=== PATIENT | male | born 1930 | race Caucasian/White ===

== ENCOUNTER 2017-03-23 20:58 | Emergency (ER) | payer MEDICARE ==
[2017-03-23 21:35] LABS: #Eosinphils 0.2 thou/uL (0.0-0.7); #Lymphocytes 1.5 thou/uL (1.20-3.40); #Monocytes 0.5 thou/uL (0.11-0.59); #Neutrophils 4.5 thou/uL (1.40-6.50); %Basophils 0.5 % (0.0-1.0); %Eosinophils 2.9 % (0.0-10.0); %Lymphocytes 22.5 % (21.0-51.0); %Monocytes 7.9 % (0.0-10.0); Hematocrit 41.2 % (42.0-52.0); Mean Platelet Volume 6.4 fL (7.4-10.4); Red Blood Cell (RBC) Count 4.11 mill/uL (4.70-6.10); White Blood Cell (WBC) Count 6.8 thou/uL (4.8-10.8)
--- NOTE | 2017-03-23 21:39 | RAD ---
CHEST ONE VIEW 03/23/17 HISTORY: Emergency exam. Palpitations. COMPARISON: Chest one view 2012. FINDINGS: The lungs are clear. The heart size is enlarged. No pneumothorax. Chronic pleural and parenchymal rashad nges in both lung bases. IMPRESSION: 1. No acute intrathoracic abnormality. 2. Cardiomegaly. 3. Chronic changes. POS: [facility]
[2017-03-23 21:57] LABS: ALT (SGPT) 10 U/L (8-55); AST (SGOT) 11 U/L (5-34); Alkaline Phosphatase 98 U/L (40-150); Anion Gap 11 mmol/L (10-20); BUN (Urea Nitrogen) 13 mg/dL (8.4-25.7); Bilirubin, Total 0.4 mg/dL (0.2-1.2); CK (CPK) 59 U/L (30-200); Calc. Creatinine Clearance 0 mL/min (70-130); Calcium 9.2 mg/dL (7.8-10.44); Carbon Dioxide 27 mmol/L (23-31); Chloride 107 mmol/L (98-107); Estimated GFR-MDRD 63; Globulin 2.5 g/dL (2.4-3.5); Protein, Total 6.3 g/dL (5.8-8.1)
[2017-03-23 22:01] LABS: Troponin I Less than 0.010 ng/mL (< 0.028)
== END 2017-03-23 23:06 | disposition home or self-care (01) ==
LOC: ERS 20:58
DX: R00.0 Tachycardia, unspecified (principal); N40.0 Benign prostatic hyperplasia without lower urinary tract symptoms; I25.10 Atherosclerotic heart disease of native coronary artery without angina pectoris; I25.2 Old myocardial infarction; K21.9 Gastro-esophageal reflux disease without esophagitis; Z79.82 Long term (current) use of aspirin; Z79.84 Long term (current) use of oral hypoglycemic drugs; Z79.899 Other long term (current) drug therapy
CPT/HCPCS: 36415; 71010; 80053; 82550; 82553; 84484; 85025; 93005

== ENCOUNTER 2017-07-06 09:15 | Inpatient (IN) | payer MEDICARE ==
[2017-07-06 09:36] LABS: #Eosinphils 0.2 thou/uL (0.0-0.7); #Monocytes 0.7 thou/uL (0.11-0.59); #Neutrophils 4.7 thou/uL (1.40-6.50); %Basophils 0.4 % (0.0-1.0); %Lymphocytes 25.8 % (21.0-51.0); %Monocytes 8.9 % (0.0-10.0); %Neutrophils 62.8 % (42.0-75.0); Hemoglobin 14.2 g/dL (14.0-18.0); Mean Corpuscular HGB CONC 34.7 g/dL (32.0-36.0); Mean Corpuscular Hemoglobin 33.9 pg (27.0-31.0); Mean Corpuscular Volume 97.9 fl (80.0-94.0); Mean Platelet Volume 6.3 fL (7.4-10.4); Platelet Count 197 thou/uL (130-400); RBC Distribution Width 11.7 % (11.5-14.5); Red Blood Cell (RBC) Count 4.17 mill/uL (4.70-6.10); White Blood Cell (WBC) Count 7.5 thou/uL (4.8-10.8)
[2017-07-06] MEDS ORDERED: Morphine 2 MG/ML SYRINGE ONE (09:57)
[2017-07-06 09:59] LABS: ALT (SGPT) 17 U/L (8-55); AST (SGOT) 24 U/L (5-34); Albumin 3.8 g/dL (3.4-4.8); Alkaline Phosphatase 85 U/L (40-150); Anion Gap 13 mmol/L (10-20); BUN (Urea Nitrogen) 15 mg/dL (8.4-25.7); Bilirubin, Total 0.6 mg/dL (0.2-1.2); CK (CPK) 64 U/L (30-200); Calc. Creatinine Clearance 0 mL/min (70-130); Calcium 8.7 mg/dL (7.8-10.44); Carbon Dioxide 25 mmol/L (23-31); Chloride 108 mmol/L (98-107); Estimated GFR-MDRD 60; Globulin 1.9 g/dL (2.4-3.5); Glucose 146 mg/dL (83-110); Potassium 3.7 mmol/L (3.5-5.1); Protein, Total 5.7 g/dL (5.8-8.1); Sodium 142 mmol/L (136-145)
[2017-07-06 10:01] LABS: CKMB 1.2 ng/mL (0-6.6); Troponin I Less than 0.010 ng/mL (< 0.028)
[2017-07-06 10:11] LABS: Lipase 1570 U/L (8-78)
--- NOTE | 2017-07-06 10:38 | RAD ---
PORTABLE CHEST 1 VIEW: DATE: 07/06/17. TIME: 10:09 a.m. HISTORY: Chest pain. FINDINGS: Comparison is made with the exam of 03/23/17. The heart size is borderline. The lungs are expanded without focal areas of consolidation, pneumotho rax, or pleural effusions. Chronic change is again seen. There is continued elevation of the right hemidiaphragm. IMPRESSION: No acute process. POS: [facility]
[2017-07-06] MEDS ORDERED: Ondansetron HCl/PF 4 MG/2 ML Vial ONE (11:50)
[2017-07-06] MEDS ORDERED: Morphine 4 MG/ML VIAL ONE (11:50)
--- NOTE | 2017-07-06 12:37 | ULT ---
RIGHT UPPER QUADRANT ULTRASOUND: History: Abdominal pain, nausea. FINDINGS: Echogenic material layers within the dependent portion of the gallbladder lumen. Gallbladder is diste nded to 8.8 cm. No gallbladder wall thickening or pericholecystic fluid. Common duct is 0.6 cm. Liver is diffusely echogenic and enlarged without focal abnormality of free abdominal fluid. IMPRESSION: 1. Biliary sludge within the gallbladder is consistent with chronic gallbladder dyskinesis. 2. Gallbladder distention is nonspecific in the absence of point tenderness over the gallbladder theresa a. 3. Hepatosteatosis. POS: [facility]
[2017-07-06 12:52] LABS: Troponin I Less than 0.010 ng/mL (< 0.028)
[2017-07-06] MEDS ORDERED: Morphine 5 MG/ML SYRINGE SLOW IVP PRN (13:30)
[2017-07-06] MEDS ORDERED: Ondansetron ODT 4 MG TAB PO PRN (13:32)
[2017-07-06] MEDS ORDERED: Ondansetron HCl/PF 4 MG/2 ML Vial IVP PRN (13:32)
[2017-07-06] MEDS: Sodium Chloride 0.9% 1,000 ML IV SCH ×2 (14:27→23:26)
[2017-07-06] MEDS ORDERED: FLU VACC TS2017-18 (>65YR) 0.5 ML SYRINGE IM ONE (15:15)
[2017-07-06] MEDS: Ketorolac Tromethamine 30 MG/ML VIAL IVP PRN ×2 (15:39→20:52)
[2017-07-06 16:19] VITALS: BMI 36.1
[2017-07-06] MEDS ORDERED: ISOVUE-370 76%-LOCM 1 ML ONE (16:21)
[2017-07-06 16:27] LABS: Troponin I Less than 0.010 ng/mL (< 0.028)
[2017-07-06] MEDS ORDERED: Dextrose 5% in Water 1,000 ML IV PRN (18:18)
[2017-07-06] MEDS ORDERED: Dextrose 50% Abboject 50 ML SYRINGE IVP PRN (18:18)
[2017-07-06] MEDS ORDERED: Insulin Regular 300 UNITS/3 ML VIAL SC PRN (18:18)
--- NOTE | 2017-07-06 18:32 | CT ---
CT ABDOMEN AND PELVIS: 07/06/17 Multiple axial tomograms obtained through the abdomen and pelvis with IV enhancement. HISTORY: Pancreatitis. Abdominal pain. Lung bases are clear. Liver and spleen are unremarkable. Pancreas shows some mild peripancreatic inflammatory change. There is mild stranding seen along the anterior border of the pancreas. No peripancreatic fluid collection . No pseudocyst. Adrenal glands and kidneys are unremarkable. No hydronephrosis. There is evidence of a low density lesion probably a small cyst measuring approximately 1.5 cm in med ial left kidney. Small bowel loops show nonspecific distention, possibly ileus. Appendix appears unremarkable. Aorta i s normal caliber. No adenopathy. No fluid collection. The gallbladder is mildly distended and there is suggestion of mild pericholecystic edema. Gallbladde r ultrasound has already been performed and this did show biliary sludge and gallbladder distention. IMPRESSION: 1. Mildly distended gallbladder with suggestion of mild pericholecystic edema. See gallbladder u ltrasound. 2. Mild inflammatory change anterior to the pancreas as described above. POS: [facility]
--- NOTE | 2017-07-06 19:05 | CON ---
DATE OF CONSULTATION: 07/06/2017 GI INPATIENT CONSULTATION NOTE REQUESTING PHYSICIAN: Dr. Temple. REASON FOR CONSULTATION: Pancreatitis. HISTORY OF PRESENT ILLNESS: Regan Romo is a very pleasant 87-year-old gentleman who is followed by my GI colleague, Dr. Desean Diggs. Mr. Romo has a history of coronary artery disease with stent pl acement several years ago, diabetes, and hyperlipidemia. 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 The patient has no prior history of liver, gallbladder, or pancreatic i llness and he has no chronic gastrointestinal symptoms. None of his medications are particularly new . He does not drink alcohol. He presented this morning after the fairly acute onset of pain in the epigastrium radiating to the back and also up into the chest. The chest tightness was concerning to him for possible cardiac event and that is what prompted his presentation. His abdominal pain is malik cribed as constant and remained at a 10/10 for several hours. There was associated nausea, but no vo miting. There is no change in bowel habits. He had a normal large bowel movement this morning with no melena or hematochezia. Upon presentation, he has remained hemodynamically stable. Morphine did not seem to alleviate his pain, but he did much better after a dose of Toradol. Labs are demonstrati ng elevation in lipase 1570, but normal LFTs, negative troponins. He had an abdominal ultrasound mary wing gallbladder distention to 8.8 cm with layering biliary sludge, but no wall thickening or pericho lecystic fluid and a normal common bile duct of 6 mm. REVIEW OF SYSTEMS: Full review of systems including constitutional, head, eyes, ears, nose, throat, GI, , cardiovascular, respiratory, musculoskeletal, and neurologic systems is negative except as no rita in the HPI. PAST MEDICAL HISTORY: Short segment Rodriguez's esophagus, colon polyps with last colonoscopy 02/2017. 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 ALLERGIES: No known drug allergies. MEDICATIONS: Finasteride, Zetia, Coenzyme Q10, Vytorin, Avodart, aspirin 81 mg daily, omeprazole 40 mg daily, Rapaflo, metformin. FAMILY HISTORY: Noncontributory. SOCIAL HISTORY: No tobacco, alcohol, or drug use. He will have a couple cups of coffee per day. PHYSICAL EXAMINATION: VITAL SIGNS: Temperature 97.7, pulse 56, blood pressure 114/57, 98% oxygen saturation on room air. GENERAL: An 87-year-old gentleman lying in bed comfortably in no distress. MENTAL: Alert and fully oriented, pleasant, conversational, gives a detailed coherent history. SKIN: No jaundice, no rashes were palpable. EYES: No scleral icterus. Extraocular movements are intact. ENT: Mucous membranes moist, no oral lesions. LYMPH: No submandibular, supraclavicular lymphadenopathy. THYROID: Nontender to palpation. HEART: Regular, borderline bradycardia. LUNGS: Clear to auscultation bilaterally. ABDOMEN: Bowel sounds are present, soft, mild tenderness to palpation in the epigastrium, but no gua rding, rebound tenderness. No masses or organomegaly appreciated. No tenderness to the right upper quadrant. EXTREMITIES: No peripheral edema. VESSELS: Radial pulses 2+ bilaterally. NEUROLOGICAL: Cranial nerves II-XII intact bilaterally. No focal deficits. LABORATORY STUDIES: WBC 7.5, hemoglobin 14.2, platelets 197. Sodium 142, potassium 3.7, BUN 15, cre atinine 1.15. LFTs normal with total bilirubin 0.6, alkaline phosphatase 85, AST 24, ALT 17, albumin 3.8. Lipase elevated to 1570. Troponin negative x3. BNP mildly elevated to 119. IMAGING STUDIES: Abdominal ultrasound showed gallbladder distention to 8.8 cm with layering biliary sludge. There is no gallbladder wall thickening or pericholecystic fluid. The common bile duct is n ormal at 6 mm. There is fatty liver. Chest x-ray demonstrated no acute process. ASSESSMENT AND PLAN: 1. Acute pancreatitis, first episode. 2. Gallbladder sludge. Given the patient's clinical history and presentation, this likely represents acute biliary pancreati tis. Note, there is no evidence of cholecystitis, but it is likely that he passed sludge at the ampu lla and that this set off this episode. CT report is pending and we will follow that up. We would r ecommend rechecking the LFTs tomorrow. In the meantime, continue with supportive care as you are doi ng with IV fluids and pain control. We would keep the patient n.p.o. for today and see if diet can b e slowly advanced as tolerated in the next day or two if he is doing better. 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 Thank you for the consultation. Please call back with questions or concerns.
[2017-07-06] MEDS: Sodium Chloride 0.45% 1,000 ML IV SCH (19:11)
--- NOTE | 2017-07-06 22:01 | HP ---
DATE OF ADMISSION: 07/06/2017 CHIEF COMPLAINT: Chest pain, abdominal pain. HISTORY OF PRESENT ILLNESS: Mr. Romo is an 87-year-old male with past medical history of coronary artery disease, status post stent, diabetes, hypertension who woke up this morning with sudden onset of abdominal pain, then later, he also developed retrosternal chest pain. The pain is diffuse in the abdomen, radiates across the abdomen as well as to the back. He states the pain was continuous and they were very diaphoretic. He felt this chest pain was different from when he had acute [place]. Because of the sudden onset of severe pain, EMS was called. EMS was found the patient with diaphoresis, chest pain, abdominal pain, and he was also bradycardic with a heart rate into the 40s. The patient was given atropine on the way to the hospital. In the ER, the patient was still having a lot of pain. He was given morphine, initially 4 mg, later 2 more mg and also received Zofran. The patient was found to have markedly elevated lipase suggestive of pancreatitis. His troponin I was normal. The patient is admitted for further evaluation and management. PAST MEDICAL HISTORY: 1. Hypertension. 2. History of diabetes mellitus. 3. Hyperlipidemia. 4. Coronary artery disease, status post stent. 5. Benign prostatic hypertrophy. 6. Chronic back pain. 7. History of Rodriguez's esophagus. 8. Degenerative joint disease. PAST SURGICAL HISTORY: 1. Status post coronary stent. 2. Status post colonoscopy and endoscopy. 3. Status post right arthroscopic knee surgery. CURRENT MEDICATIONS: Patient is on aspirin 81 mg daily, metformin 500 mg daily , metoprolol 25 mg daily, omeprazole 40 mg daily, Vytorin 10/20 daily. ALLERGIES: No known drug allergies. FAMILY HISTORY: Nothing of interest. SOCIAL HISTORY: Patient lives with family. No history of smoking. No history or alcohol intake. REVIEW OF SYSTEMS: Cardiovascular: Has chest pain, no shortness of breath. Respiratory: No fever or cough. Gastrointestinal: Has abdominal pain and nausea. Central nervous system: No headache, no dizziness. PHYSICAL EXAMINATION: GENERAL: The patient is alert, awake, oriented x3. VITAL SIGNS: Temperature 98, pulse 54, respiration 20, blood pressure 99/60. HEENT: Head is normocephalic, atraumatic. Pupils are equal and reactive to light. Nasopharynx is pink, moist. NECK: Supple. No JVD. LUNGS: Bilateral air entry present, no rales, no rhonchi. CARDIAC: S1, S2 regular. ABDOMEN: Soft, diffusely tender. No guarding, no rigidity. Bowel sounds present. RECTAL: Deferred. CENTRAL NERVOUS SYSTEM: No focal deficit. LABORATORY DATA AND X-RAY FINDINGS: CBC shows WBC 7.5, hemoglobin 14, hematocrit 40, platelets 197. Metabolic panel: Sodium 140, potassium 3.7, chloride 108, CO2 22, urea nitrogen 15, creatinine 1.1, glucose 146. CK-MB 1.2 , troponin I less than 0.010. BNP 119. Serum lipase was 1570, AST 24, ALT 17, alkaline phosphatase 85. Chest x-ray, no acute process. Ultrasound of the abdomen revealed sludge in the gallbladder consistent with chronic gall bladder dyskinesis. no gallstones. EKG shows sinus bradycardia with heart rate of 19, no acute ST-T wave changes seen. ASSESSMENT: 1. Acute pancreatitis. 2. Chest pain, rule out myocardial infarction. 3. Gallbladder sludge. 4. Hypertension. 5. Diabetes mellitus. 6. Coronary artery disease, status post stent. PLAN: 1. Vital signs q.4 hours. 2. Activity as tolerated. 3. Allergies: No known drug allergies. 4. IV fluids 1/2 normal at 100 mL per hour. 5. Toradol 30 mg IVP q.4 hours p.r.n. 6. Diet n.p.o., hold home medications. 7. CT scan of the abdomen and pelvis. 8. GI consult. 9. Accu-Cheks q.4 hours. 10. Sliding scale mild with regular insulin. 11. Cardiology consult. PAWAN
[2017-07-07] MEDS: Sodium Chloride 0.45% 1,000 ML IV SCH ×2 (05:28→15:59)
[2017-07-07 05:59] LABS: ALT (SGPT) 53 U/L (8-55); AST (SGOT) 43 U/L (5-34); Albumin 3.5 g/dL (3.4-4.8); Alkaline Phosphatase 88 U/L (40-150); Anion Gap 13 mmol/L (10-20); BUN (Urea Nitrogen) 18 mg/dL (8.4-25.7); Bilirubin, Total 0.5 mg/dL (0.2-1.2); Calc. Creatinine Clearance 73 mL/min (70-130); Calcium 8.5 mg/dL (7.8-10.44); Carbon Dioxide 22 mmol/L (23-31); Chloride 104 mmol/L (98-107); Estimated GFR-MDRD 60; Glucose 101 mg/dL (83-110); Lipase 912 U/L (8-78); Potassium 4.2 mmol/L (3.5-5.1); Protein, Total 5.5 g/dL (5.8-8.1); Sodium 135 mmol/L (136-145)
[2017-07-07] MEDS: Ketorolac Tromethamine 30 MG/ML VIAL IVP PRN ×3 (08:56→20:31)
--- NOTE | 2017-07-07 14:04 | PRG ---
DATE OF SERVICE: 07/07/2017 SUBJECTIVE: The patient is having less pain today. He says he is hungry. He has had no nausea, vom iting. He did have a bowel movement yesterday. OBJECTIVE: VITAL SIGNS: Temperature 98.3, pulse 58, respiratory rate 18, blood pressure 108/55. CHEST: Clear. CARDIOVASCULAR: Regular rate and rhythm. ABDOMEN: Soft, nontender. No organomegaly or masses. LABORATORY DATA: No repeat CBC today. Chemistry shows sodium 135, CO2 of 22, AST 43, lipase of 912. Abdominal and pelvic CT shows some mildly distended gallbladder with suggestion of mild pericholecy stic edema and mild inflammatory changes in the pancreas. ASSESSMENT: 1. Biliary pancreatitis. 2. Possible cholecystitis. RECOMMENDATIONS: 1. General Surgery consultation. 2. Okay to begin clear liquids. 3. Repeat CBC to make sure hemoglobin and hematocrit are decreasing to confirm adequate hydration.
[2017-07-07 14:16] LABS: #Eosinphils 0.1 thou/uL (0.0-0.7); #Lymphocytes 1.5 thou/uL (1.20-3.40); #Monocytes 0.8 thou/uL (0.11-0.59); #Neutrophils 8.6 thou/uL (1.40-6.50); %Basophils 0.1 % (0.0-1.0); %Eosinophils 0.5 % (0.0-10.0); %Lymphocytes 13.8 % (21.0-51.0); %Monocytes 7.2 % (0.0-10.0); %Neutrophils 78.4 % (42.0-75.0); Mean Corpuscular HGB CONC 34.4 g/dL (32.0-36.0); Mean Corpuscular Hemoglobin 33.8 pg (27.0-31.0); Mean Corpuscular Volume 98.2 fl (80.0-94.0); Mean Platelet Volume 6.4 fL (7.4-10.4); Platelet Count 177 thou/uL (130-400); Red Blood Cell (RBC) Count 3.85 mill/uL (4.70-6.10); White Blood Cell (WBC) Count 10.9 thou/uL (4.8-10.8)
--- NOTE | 2017-07-08 01:30 | CON ---
DATE OF CONSULTATION: 07/07/2017 HISTORY OF PRESENT ILLNESS: Mr. Regan Romo is a pleasant 87-year-old white male that I have known indirectly for 30 years while am taking care of his , Julieta Romo. I first saw Mr. Romo as a patient in 07/1999 when he presented to the emergency room complaining of 2 years of chest pressure that would occur without exertion and last for 2-3 minutes. He did have 2-3 episodes per month. On the day of admission, he was doing yard work with the [employer] and started having chest discomfort at 9:30 a.m., he became diaphoretic, but did not have any shortness of breath, nausea, or vomiting. In the emergency room, he was given sublingual nitroglycerin and intravenous nitroglycerin and continued to have 10/10 chest discomfort. EKG revealed sinus bradycardia with rate of 50 per minute. There is [address] segment elevation in V2, [address] segment elevation in V3 and somewhat peaked T waves in V1 through V4. There was a Q-wave in V2 and V3 consistent with previous septal infarction. He underwent emergent catheterization and was found to have total occlusion of the proximal LAD, which filled retrograde from the right coronary artery. There was a 30% proximal circumflex, 60% ramus, and 30% mid RCA. Reopro was started on arrival in the senior laboratory technician. ROMINA 3.0 x 28 mm stent was placed in the proximal LAD with reduction from the total occlusion to 0%. The area was post- dilated with a 3 mm balloon. Left ventriculogram revealed severe anteroapical hypokinesis with ejection fraction of 30%-35%. He had mild rales on examination for 2 days, it was treated with p.o. Lasix. He was also placed on Lipitor for cholesterol 217, triglycerides 85, HDL 39, and LDL 161. He then was diagnosed by Dr. Allan as having polymyalgia rheumatica. In 1999, he was on a trip to [place], [place], and when he was walking in [facility], he had severe midsternal chest pressure radiating to his jaws and left arm. This was associated with shortness of breath, diaphoresis, and nausea. He was given aspirin, nitroglycerin and oxygen. His pain resolved with treatment by paramedics. CK was negative. The pain lasted for a total of 40 minutes. With that history, later in 12/1999, he underwent cardiac catheterization. He was found to have a 70% in-stent restenosis of the proximal portion of the LAD stent, which was dilated with 3 mm balloon and reduced to 0%. The circumflex had a 50% stenosis. There was 30% mid RCA stenosis. There was severe anteroapical hypokinesis with ejection fraction of 30%-35%. Perclose suture was placed. In 06/2000, he exercised for 8 minutes on stress echo, had no chest discomfort. There was ischemia of the inferoposterior wall and scar of the distal septum. He continued to not have any chest discomfort and was felt best to follow him clinically. In 12/2000, he stated that he would have episodes of chest pressure at rest, relieved with 2 sublingual nitroglycerins. He was placed on niacin and had trouble with his tongue swelling and then he stopped that. In , he exercised for 9 minutes and had no chest pain or EKG changes. He had an ejection fraction of 45%-50% with ischemia of the inferoposterior wall. With his atypical chest discomfort and inferoposterior wall ischemia on stress echo testing, he underwent repeat catheterization in 06/2001. This revealed moderate anterior and apical hypokinesis with ejection fraction of 40%-45%. There was a 20% proximal LAD in-stent restenosis, 50% proximal circumflex lesion which was unchanged from before and 20% mid RCA lesion. He has continued to be followed in the office for the last 16 years without significant problems. In 08/2006, he was admitted with chest pain which seemed to be chest wall pain. He underwent nuclear scan, which revealed fixed defect in the apex, anteroseptal and inferolateral rojas, but no reversible ischemia. Again in 08/2012, he underwent Lexiscan Cardiolite testing which revealed scar of the anteroseptal area and apex as well as the inferolateral wall. There was no evidence of ischemia. In 05/2013, he underwent left total knee replacement. He did have postoperative hypoxemia, but no evidence of myocardial infarction. CT angiogram revealed no evidence of pulmonary embolism. It was felt that he probably had some degree of diastolic dysfunction. In 01/2015, echocardiogram revealed apical akinesis with overall ejection fraction of 50%-55% with left atrial enlargement, mild mitral regurgitation, evidence for diastolic dysfunction, aortic valvular sclerosis, mild tricuspid regurgitation, and mild pulmonic regurgitation. Also, in 01/2015, he underwent Lexiscan Cardiolite testing. This revealed distal septal and inferolateral fixed wall defects as well as defect in the anterior wall and apex. There was no reversible ischemia. He was last seen in the office on 06/07/2017. At that time, he denied any chest discomfort or shortness of breath and overall was doing well. Over the last 2 weeks, Mr. Romo began to notice some epigastric pain, although this would not last too long. This discomfort also would seem to radiate to his back up into his chest. Yesterday, he then had much more intense episode that lasted 4-5 hours continuously. He has been found to have pancreatitis as well as gallbladder sludge and he is just now starting to take liquids. He denied any chest discomfort like he had prior to his stent placement and then PTCA of his stent for in-stent restenosis. However, this was many years ago and he is not certain if he recalls exactly how that fell. PAST MEDICAL HISTORY: Hypertension, hypercholesterolemia, diabetes, coronary artery disease, myocardial infarction, benign prostatic hypertrophy, chronic back pain, Rodriguez esophagitis, and degenerative joint disease. OPERATIONS: Left total knee replacement, stent placement in the proximal LAD. MEDICATIONS: When he was last seen in the office - finasteride 5 mg daily, CoQ- 10 unknown dose daily, aspirin 81 daily, metformin 500 mg daily, omeprazole 40 mg daily, Rapaflo 8 mg daily, Zetia 10 mg daily, atorvastatin 80 daily, metoprolol ER 25 mg daily. ALLERGIES: None. SOCIAL HISTORY: He smoked 1 pack per day, but stopped 33 years ago. He does not drink. 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 FAMILY HISTORY: Brother had myocardial infarction and followed by CABG. Father apparently had bypass surgery in his late 80s. REVIEW OF SYSTEMS: Twelve point review of systems otherwise unremarkable. PHYSICAL EXAMINATION: VITAL SIGNS: Blood pressure 108/55, pulse 58. HEENT: PERRL. NECK: Supple. CHEST: Clear. CARDIAC: S1, S2 normal, without any S3, S4 or murmurs. ABDOMEN: Normal bowel sounds. EXTREMITIES: There is no tenderness. NEUROLOGIC: Grossly intact. SKIN: Warm and dry. LABORATORY DATA AND IMAGING: EKG reveals normal sinus rhythm with septal infarction. Sodium 135, potassium 4.2, chloride 104, carbon dioxide 22, BUN 18 , creatinine 1.16. Lipase is 1570 and 912, AST 43, ALT 53, alkaline phosphatase 88. Cardiac enzymes were unremarkable. Hemoglobin 13.0, hematocrit 37.8, white count 10,900, platelets 177,000. IMPRESSION: 1. Biliary pancreatitis, finding of gallbladder sludge on abdominal CT. 2. Status post anteroseptal myocardial infarction with emergent stent placement in 07/1999 with ROMINA 3.0 x 32 mm stent placed in the proximal LAD. He developed restenosis and underwent PTCA of this area in 12/1999. On follow up, this catheterization continued to show good results. 3. Mild left ventricular dysfunction. 4. Hypercholesterolemia. 5. Former smoker. 6. Positive family history. 7. Probable hypertension. PLAN: Mr. Romo will be restarted on his metoprolol. Mr. Romo appears to be an acceptable cardiac risk to proceed with laparoscopic cholecystectomy if that is the ultimate decision. PAWAN
[2017-07-08] MEDS: Sodium Chloride 0.45% 1,000 ML IV SCH ×3 (01:56→20:31)
[2017-07-08] MEDS: Ketorolac Tromethamine 30 MG/ML VIAL IVP PRN ×2 (07:33→14:30)
--- NOTE | 2017-07-08 17:11 | PRG ---
DATE OF SERVICE: 07/08/2017 SUBJECTIVE: The patient is doing well. He is having less pain today. No nausea, vomiting. He is h ungry. OBJECTIVE: VITAL SIGNS: Temperature 97.9, pulse 53, respiratory rate 20, blood pressure 138/64. CHEST: Clear. CARDIOVASCULAR: Regular rate and rhythm. ABDOMEN: Soft, nontender, without organomegaly or masses. LABORATORY DATA: Shows a lipase of 344, hemoglobin went from 14 to 13. ASSESSMENT: 1. Biliary pancreatitis. 2. Coronary artery disease. RECOMMENDATIONS: The patient sees Dr. Bailey today.
[2017-07-08] MEDS ORDERED: cefOXitin 2 GM, Syringe 1 ML in Sterile Water 10 ML SLOW IVP SCH (18:30)
[2017-07-08] MEDS ORDERED: Ketorolac Tromethamine 30 MG/ML VIAL IVP SCH (18:30)
[2017-07-08] MEDS: Atorvastatin Calcium 40 MG TAB PO SCH (20:32)
--- NOTE | 2017-07-08 20:37 | CON ---
DATE OF CONSULTATION: 07/08/2017 CONSULTING PHYSICIAN: Dr. Desean Diggs/Dr. Marcelo Temple. REASON FOR CONSULTATION: Pancreatitis, gallbladder sludge. HISTORY OF PRESENT ILLNESS: The patient is an 87-year-old white male. He presented to the hospital 2 days ago with severe epigastric pain radiating through to his back. He apparently had some mild pe ritoneal signs with lower abdominal discomfort as well. He was seen in the emergency room and underw ent evaluation. CT scan and ultrasound were obtained. Laboratory studies were obtained as well. Hi s ultrasound revealed evidence of gallbladder sludge. CT scan revealed evidence of pancreatitis and laboratory studies revealed elevated pancreatic enzymes. His lipase upon arrival was 1570. This has decreased to 344 today. He notes that his pain has essentially resolved as well. His liver functio n tests were not elevated when he presented. His electrolytes were essentially normal. His white bl ood cell count upon presentation was 7.5 and yesterday was 10.9. Patient has been afebrile with norm al vital signs during his hospitalization. The patient does not drink alcohol at all and given his g allbladder sludge, it is felt that there is a reasonable chance that his gallbladder disease is the e tiology of his pancreatitis and I am consulted for further evaluation regarding this. PAST MEDICAL HISTORY: 1. Hypertension. 2. Diabetes mellitus. 3. Hyperlipidemia. 4. Coronary artery disease (status post stent placement). 5. Benign prostatic hypertrophy. 6. Chronic back pain. 7. History of Rodriguez's esophagus. 8. Degenerative joint disease. PAST SURGICAL HISTORY: 1. Coronary stent placement. 2. Right knee arthroscopy. CURRENT MEDICATIONS: Aspirin, metformin, metoprolol, omeprazole, Vytorin. ALLERGIES: No known drug allergies. PERSONAL/SOCIAL HISTORY: He is for the past 7 years. He has 5 children, three of whom are p resent at bedside. He denies smoking. He drinks alcohol extremely very rarely and does not believe he has had anything for at least 6 months. He lives in [place] and Dr. Temple is his primary care physician. REVIEW OF SYSTEMS: Otherwise, unremarkable. FAMILY HISTORY: Noncontributory. PHYSICAL EXAMINATION: VITAL SIGNS: He is afebrile, pulse is 53, blood pressure 138/64. GENERAL: Well-developed, well-nourished, pleasant white male resting in bed in no acute distress, bu t is alert and oriented x3. HEENT: Unremarkable. NECK: Supple, without mass or tenderness. LUNGS: Clear to auscultation throughout. CARDIAC: Regular rate and rhythm without murmur. ABDOMEN: Obese, but soft and nontender. Bowel sounds are present and normoactive. EXTREMITIES: Unremarkable. ASSESSMENT: Patient with a suspected gallstone pancreatitis. PLAN: Laparoscopic cholecystectomy with cholangiogram. I have discussed the operation in detail wit h the patient as well as potential risks. He understands and agrees to proceed with surgery at this time.
[2017-07-09] MEDS: Ketorolac Tromethamine 30 MG/ML VIAL IVP PRN ×2 (02:08→17:38)
[2017-07-09] MEDS: Sodium Chloride 0.45% 1,000 ML IV SCH ×2 (09:23→17:33)
[2017-07-09] MEDS: Ezetimibe 10 MG TAB PO SCH (11:14)
[2017-07-09] MEDS ORDERED: Ketorolac Tromethamine 30 MG/ML VIAL ONE (12:54)
[2017-07-09] MEDS ORDERED: Bupivacaine/Epinephrine 0.25% 30 ML VIAL ONE (14:00)
[2017-07-09] MEDS ORDERED: Fentanyl 250 MCG/5 ML VIAL ONE (14:02)
[2017-07-09] MEDS ORDERED: Midazolam HCl 2 mg/2 ml Vial ONE (14:02)
[2017-07-09] MEDS ORDERED: Iothalamate Meglumine 60% 50 ML VIAL FS ONE (14:38)
--- NOTE | 2017-07-09 15:57 | RAD ---
INTRAOPERATIVE CHOLANGIOGRAM AND FLUOROSCOPY: HISTORY: Cholecystitis. FINDINGS: Intraoperative fluoroscopy was provided for cholangiogram as performed by Dr. Bailey. Spot fluorosc opic images show operative hardware over the gallbladder fossa. There is contrast opacification of a nondilated common duct with no filling defect apparent. Some extraluminal contrast is present at th e gallbladder fossa. A small amount of contrast is seen just medial to the common duct, having the a ppearance of a small amount of contrast in the duodenum. Fluoro time=27 seconds. POS: [facility]
[2017-07-09] MEDS ORDERED: Morphine Sulfate 2 MG/ML SYRINGE SLOW IVP PRN (15:59)
[2017-07-09] MEDS ORDERED: Promethazine HCl 25 MG/ML VIAL SLOW IVP PRN (15:59)
--- NOTE | 2017-07-09 16:52 | PRG ---
DATE OF SERVICE: 07/09/2017 SUBJECTIVE: The patient is in the recovery room at this point and anesthetized. He really adds noth ing to history of present illness. No surgical complications were noted. PHYSICAL EXAMINATION: VITAL SIGNS: Pulses of 53, respiratory rate 12, blood pressure 113/43, temperature 97.8. CHEST: Clear. CARDIOVASCULAR: Regular rate and rhythm. ABDOMEN: Soft and tender in his surgical site. LABORATORY DATA: No new laboratory was performed. Intraoperative cholangiogram showed no filling de fects. ASSESSMENT: Biliary pancreatitis - status post cholecystectomy. RECOMMENDATIONS: 1. Diet per surgery. 2. Continue IV fluids. 3. Analgesics.
[2017-07-09] MEDS ORDERED: Calcium Carbonate 500 MG ChewTAB PO PRN (16:55)
[2017-07-09] MEDS ORDERED: Dextrose 50% Abboject 50 ML SYRINGE SLOW IVP PRN (16:55)
[2017-07-09] MEDS ORDERED: hydrALAZINE 20 MG/ML VIAL SLOW IVP PRN (16:55)
[2017-07-09] MEDS ORDERED: Ondansetron HCl/PF 4 MG/2 ML Vial IVP PRN (16:55)
[2017-07-09] MEDS ORDERED: Promethazine HCl 25 MG/ML VIAL IM PRN (16:55)
[2017-07-09] MEDS ORDERED: HYDROcodone/Acetaminophen 7.5/325 mg Tablet PO PRN ×2 (16:55)
[2017-07-09] MEDS ORDERED: Dextrose 5% in Water 1,000 ML IV PRN (16:55)
[2017-07-09] MEDS ORDERED: Mag-Al 1200 mg/1200 mg/30 ML UDCUP PO PRN (16:55)
[2017-07-09] MEDS ORDERED: Acetaminophen 1,000 MG in Premix Bag 1 BAG IVPB SCH (17:00)
[2017-07-09] MEDS: Lactated Ringer's 1,000 ML IV SCH (17:32)
[2017-07-09] MEDS ORDERED: Propofol 200 MG/20 ML VIAL ONE (18:07)
[2017-07-09] MEDS ORDERED: Dexamethasone 20 MG/5 ML VIAL ONE (18:07)
[2017-07-09] MEDS ORDERED: Lidocaine 1% PF 5 ML VIAL ONE (18:07)
[2017-07-09] MEDS ORDERED: Ondansetron HCl/PF 4 MG/2 ML Vial ONE (18:07)
[2017-07-09] MEDS ORDERED: Glycopyrrolate 0.2 MG/ML 5 ML SYRINGE ONE (18:07)
[2017-07-09] MEDS: Atorvastatin Calcium 40 MG TAB PO SCH (20:38)
[2017-07-09] MEDS: Famotidine 20 MG TAB PO SCH (20:38)
[2017-07-09] MEDS: Famotidine/PF 20 mg/2ml Vial SLOW IVP SCH (20:39)
[2017-07-10] MEDS: Sodium Chloride 0.45% 1,000 ML IV SCH ×2 (05:33→13:32)
[2017-07-10 05:34] LABS: #Basophils 0.1 thou/uL (0.0-0.2); #Lymphocytes 0.6 thou/uL (1.20-3.40); #Monocytes 0.8 thou/uL (0.11-0.59); %Basophils 0.7 % (0.0-1.0); %Eosinophils 0.1 % (0.0-10.0); %Lymphocytes 4.8 % (21.0-51.0); %Monocytes 6.9 % (0.0-10.0); %Neutrophils 87.4 % (42.0-75.0); Hemoglobin 12.1 g/dL (14.0-18.0); Mean Corpuscular Hemoglobin 34.2 pg (27.0-31.0); Mean Corpuscular Volume 97.7 fl (80.0-94.0); Mean Platelet Volume 6.4 fL (7.4-10.4); Platelet Count 216 thou/uL (130-400); RBC Distribution Width 11.6 % (11.5-14.5); Red Blood Cell (RBC) Count 3.55 mill/uL (4.70-6.10); White Blood Cell (WBC) Count 11.5 thou/uL (4.8-10.8)
[2017-07-10] MEDS: Lactated Ringer's 1,000 ML IV SCH (05:36)
[2017-07-10 05:53] LABS: ALT (SGPT) 46 U/L (8-55); AST (SGOT) 54 U/L (5-34); Albumin 3.2 g/dL (3.4-4.8); Alkaline Phosphatase 71 U/L (40-150); Anion Gap 11 mmol/L (10-20); BUN (Urea Nitrogen) 16 mg/dL (8.4-25.7); Bilirubin, Total 0.5 mg/dL (0.2-1.2); Calc. Creatinine Clearance 82 mL/min (70-130); Calcium 8.5 mg/dL (7.8-10.44); Carbon Dioxide 23 mmol/L (23-31); Chloride 106 mmol/L (98-107); Estimated GFR-MDRD 66; Globulin 2.1 g/dL (2.4-3.5); Glucose 129 mg/dL (83-110); Lipase 53 U/L (8-78); Potassium 4.4 mmol/L (3.5-5.1); Protein, Total 5.3 g/dL (5.8-8.1); Sodium 136 mmol/L (136-145)
[2017-07-10] MEDS: Famotidine 20 MG TAB PO SCH (08:40)
[2017-07-10] MEDS: Ezetimibe 10 MG TAB PO SCH (08:40)
[2017-07-10] MEDS: Famotidine/PF 20 mg/2ml Vial SLOW IVP SCH (08:43)
--- NOTE | 2017-07-10 12:42 | PRG ---
DATE OF SERVICE: 07/10/2017 SUBJECTIVE: The patient is feeling well. He is just having some minor soreness from his surgery. OBJECTIVE: VITAL SIGNS: Temperature 99.1, pulse 69, respiratory rate 14, blood pressure 143/62. CHEST: Clear. CARDIOVASCULAR: Regular rate and rhythm. ABDOMEN: Soft, tender in the incisional area, but otherwise benign. LABORATORY DATA: Shows a white blood cell count 11.5, hemoglobin 12.1, hematocrit 34.7. Chemistries are essentially normal except for AST of 54, albumin 3.2, lipase of 53. ASSESSMENT: Biliary pancreatitis - intraoperative cholangiogram was negative. RECOMMENDATIONS: 1. Stable from GI standpoint for discharge. 2. We will sign off.
[2017-07-10] MEDS ORDERED: Sodium Chloride 0.9% 1,000 ML IV SCH (14:45)
--- NOTE | 2017-07-10 16:16 | OP ---
DATE OF PROCEDURE: 07/09/2017 PREOPERATIVE DIAGNOSIS: Gallstone pancreatitis. POSTOPERATIVE DIAGNOSIS: Gallstone pancreatitis. OPERATION PERFORMED: Laparoscopic cholecystectomy with intraoperative cholangiogram. SURGEON: Puma Bailey M.D. ANESTHESIA: General endotracheal. INDICATIONS: The patient is an 87-year-old white male. He presented to the hospital with severe abd ominal pain that was found to be related to pancreatitis. Gallbladder ultrasound revealed gallbladde r distention with biliary sludge. He has no alcohol history. It was therefore recommended to procee d with cholecystectomy upon appropriate resolution of his pancreatitis. His pancreatic enzymes have normalized substantially, and his abdominal discomfort has resolved. Unfortunately, he has significa nt central abdominal obesity that will make the operation challenging. OPERATIVE PROCEDURE IN DETAIL: Informed consent was obtained. The patient was taken to the operatin g room, where general endotracheal anesthesia was obtained with the patient in supine position. Abdo men was prepped with ChloraPrep and draped in sterile fashion. Local anesthetic was infiltrated usin g 0.25% Marcaine with epinephrine. An infraumbilical 11 mm incision was created, through which a David ess needle was passed into the peritoneal cavity, and pneumoperitoneum was established using carbon d ioxide up to a pressure of 15 mmHg. An 11 mm trocar port was placed through the same incision. [place] roscopic camera was passed this port. Under direct vision, three additional 5 mm right upper quadran t ports were placed. The patient was placed in fairly extreme reverse Trendelenburg. Gallbladder was grasped and retracte d in a cephalad direction. With maximum optimization, it was still very challenging to see the apex of the gallbladder. The gallbladder was retracted in the cephalad direction. The infundibulum with effort was able to be visualized and retracted. It was difficult passing the scope over the abundant fatty material in the abdomen, but I was able to adequately see to proceed with this portion of the operation. Dissection was begun at the apex of the gallbladder, incising the peritoneum and identify ing the structures. As I was dissecting in this area, I incised the right lateral aspect of the cyst ic artery, and there was significant bleeding into the field. Of note, there was substantial inflamm ation at this area that made dissection difficult. Between the extreme volume of fat within the abdo men and the challenging. view and the inflammation, it made this area difficult to visualize and control. I was able to stop all bleeding with pressure upon the area. I was eventually able to visualize and grasp the vessel. At this point, I placed an additional 5 mm port left of midline. Utilizing this fifth port, I was ab le to visualize the cystic artery and place a couple of clips on it to completely controlling the ble eding. Prior to this; however, there had been an estimated 400 mL of blood loss. The cystic duct was then dissected circumferentially, and a cholangiogram was obtained using the taut cholangiocath revealing normal ductal anatomy with no evidence of filling defect and emptying into t he duodenum. The duct was doubly clipped distally and divided. The gallbladder was dissected off th e gallbladder fossa using electrocautery. Meticulous hemostasis was obtained within the gallbladder fossa. Gallbladder was removed through the infraumbilical incision, and the fascia was closed with 0 Vicryl suture using a GraNee needle. The right upper quadrant was again irrigated, and all irrigant was aspirated. All ports and instruments removed under direct vision. Pneumoperitoneum was careful ly evacuated. A 0.25% Marcaine with epinephrine was infiltrated in each port site, and skin edges ap proximated with 4-0 Monocryl subcuticular suture. Dermabond was placed externally. There were no co mplications. Blood loss, as mentioned, was about 400 mL. The patient, however, remained in stable c ondition throughout and was taken to recovery room in stable condition.
[2017-07-10 16:24] VITALS: BP 145/67; TEMP 98.2
--- NOTE | 2017-07-10 16:55 | PRG ---
DATE OF SERVICE: 07/10/2017 ATTENDING PHYSICIAN: Dr. Uvaldo Echeverria. SUBJECTIVE: Mr. Romo is an 87-year-old male who is postoperative day #1, status post laparoscopic cholecystectomy with intraoperative cholangiogram. He was seen this morning on the telemetry floor. He is tolerating a regular diet. Pain is well controlled. He has no abdominal pain. He has been passing flatus. He has been up and ambulatory without assistance. White blood cell count is 11.5 to day from 10.9 yesterday. OBJECTIVE: VITAL SIGNS: Temperature 98.3, pulse 67, respirations 18, O2 sat 95% on room air and blood pressure 135/61. GENERAL: A well-developed, well-nourished male in no acute distress. HEENT: Atraumatic and normocephalic. CARDIOVASCULAR: Regular rate and rhythm. Heart sounds are normal. PULMONARY: Respirations are even and unlabored. Breath sounds are clear bilaterally. ABDOMEN: Soft, nontender and nondistended. Laparoscopic surgical incisions without signs and sympto ms of infection. No redness noted. No pain at incision site. EXTREMITIES: Moves all extremities well. Cap refill brisk. NEUROLOGIC: GCS 15. A&O x3. ASSESSMENT: 1. Status post laparoscopic cholecystectomy, postoperative day #1. 2. Tolerating regular diet. 3. Pain well controlled. 4. Urinary retention, requiring replacement of Miller catheter. PLAN: 1. Restart the patient's home medications for BPH. 2. Referral to Urology. The patient may be discontinued with Miller catheter and leg bag. 3. The patient is tolerating regular diet. Surgical sites without pain or signs of infection. 4. The patient may be discharged from a surgical perspective. He is to follow up with Dr. Lynn ureña 2 weeks. The patient was seen and examined with Dr. Echeverria, who agrees with the assessment and plan.
[2017-07-11] MEDS ORDERED: Silodosin 8 MG CAP PO SCH (08:00)
[2017-07-11] MEDS ORDERED: Dutasteride 0.5 MG CAP PO SCH (09:00)
== END 2017-07-10 18:28 | disposition home or self-care (01) | DRG 419 ==
LOC: ERS 09:15 → 2NO 11:23
PROVIDERS: ADMIT Internal Medicine; ATTEND Internal Medicine
PROC: 0FT44ZZ Resection of Gallbladder, Percutaneous Endoscopic Approach (ICD-10-PCS; principal; 2017-07-09)
PROC: BF101ZZ Fluoroscopy of Bile Ducts using Low Osmolar Contrast (ICD-10-PCS; 2017-07-09)
DX: K85.10 Biliary acute pancreatitis without necrosis or infection (principal); E11.9 Type 2 diabetes mellitus without complications; I25.10 Atherosclerotic heart disease of native coronary artery without angina pectoris; Z95.5 Presence of coronary angioplasty implant and graft; I10 Essential (primary) hypertension; I25.2 Old myocardial infarction; E78.5 Hyperlipidemia, unspecified; G89.29 Other chronic pain; M54.9 Dorsalgia, unspecified; M19.90 Unspecified osteoarthritis, unspecified site; Z79.84 Long term (current) use of oral hypoglycemic drugs; Z79.82 Long term (current) use of aspirin; E66.9 Obesity, unspecified; Z68.37 Body mass index [BMI] 37.0-37.9, adult; M35.3 Polymyalgia rheumatica; Z96.652 Presence of left artificial knee joint; Z87.891 Personal history of nicotine dependence; I44.0 Atrioventricular block, first degree; N40.1 Benign prostatic hyperplasia with lower urinary tract symptoms; R33.8 Other retention of urine
CPT/HCPCS: 36415; 36416; 47532; 71045; 74177; 76705; 80053; 82550; 82553; 83690; 83880; 84484; 85025; 88304; 93005; 96374; 96375; 96376; A4216; J0131; J0694; J1100; J1885; J2001; J2250; J2270; J2405; J2704; J3010; Q9961

== ENCOUNTER 2017-07-13 16:28 | Inpatient (IN) | payer MEDICARE ==
[2017-07-13 16:54] LABS: Bilirubin Negative (Negative); Blood, Urine Negative (Negative); Clarity CLEAR (Clear); Glucose, Urine (Dipstick) Negative (Negative); Leukocyte Negative (Negative); Nitrite Negative (Negative); Protein, Urine (Dipstick) Trace mg/dL (Neg-Trace)
[2017-07-13] MEDS ORDERED: ISOVUE-370 76%-LOCM 1 ML ONE (16:57)
[2017-07-13] MEDS ORDERED: Fentanyl 100 MCG/2 ML VIAL ONE (17:04)
[2017-07-13] MEDS ORDERED: Ondansetron HCl/PF 4 MG/2 ML Vial ONE (17:04)
[2017-07-13 17:10] LABS: INR-International Normal Ratio 1.1; Prothrombin Time 14.4 SEC (12.0-14.7)
[2017-07-13] MEDS ORDERED: Acetaminophen 500 MG TAB ONE (17:21)
[2017-07-13 17:22] LABS: Band 7 % (5-11); Hemoglobin 13.1 g/dL (14.0-18.0); Lymphocytes 2 % (21-51); MDiff Complete? YES; Mean Corpuscular HGB CONC 33.6 g/dL (32.0-36.0); Mean Corpuscular Hemoglobin 33.3 pg (27.0-31.0); Mean Corpuscular Volume 98.9 fl (80.0-94.0); Mean Platelet Volume 6.2 fL (7.4-10.4); Monocytes 2 % (0-10); Neutrophil 89 % (42-75); PLT Morphology Comment Appears Adequate; Platelet Count 321 thou/uL (130-400); RBC Distribution Width 11.5 % (11.5-14.5); Red Blood Cell (RBC) Count 3.94 mill/uL (4.70-6.10); White Blood Cell (WBC) Count 18.9 thou/uL (4.8-10.8)
[2017-07-13 17:26] LABS: ALT (SGPT) 29 U/L (8-55); AST (SGOT) 16 U/L (5-34); Albumin 3.7 g/dL (3.4-4.8); Alkaline Phosphatase 82 U/L (40-150); Anion Gap 15 mmol/L (10-20); BUN (Urea Nitrogen) 8 mg/dL (8.4-25.7); Bilirubin, Total 1.1 mg/dL (0.2-1.2); Calc. Creatinine Clearance 0 mL/min (70-130); Calcium 9.1 mg/dL (7.8-10.44); Carbon Dioxide 22 mmol/L (23-31); Chloride 100 mmol/L (98-107); Estimated GFR-MDRD 69; Globulin 2.9 g/dL (2.4-3.5); Glucose 158 mg/dL (83-110); Lipase 54 U/L (8-78); Magnesium 1.4 mg/dL (1.6-2.6); Potassium 3.9 mmol/L (3.5-5.1); Protein, Total 6.6 g/dL (5.8-8.1); Sodium 133 mmol/L (136-145)
[2017-07-13] MEDS ORDERED: Piperacillin/Tazobactam 4.5 GM in Sodium Chloride 0.9% 100 ML IVPB ONE (17:30)
[2017-07-13 17:53] LABS: CKMB 0.7 ng/mL (0-6.6); Troponin I 0.031 ng/mL (< 0.028)
--- NOTE | 2017-07-13 18:22 | RAD ---
RADIOGRAPH CHEST 1 VIEW: 07/13/17 HISTORY: 87-year-old male with chest pain. FINDINGS: There is no air space density, pulmonary edema, or pneumothorax. The lateral costophrenic angles are sharp. IMPRESSION: No acute pulmonary findings. juan antonio [] POS: [facility]
[2017-07-13] MEDS ORDERED: Magnesium 2 GM/NS 0.9% 100 ML 2 GM in Premix Bag 1 BAG IVPB ONE (18:45)
--- NOTE | 2017-07-13 20:07 | CT ---
CT ABDOMEN WITH CONTRAST CT PELVIS WITH CONTRAST: DATE: 07/13/17 TIME: 6:46 p.m. HISTORY: 87-year-old male with worsening generalized abdominal pain. Status post cholecystectomy 07/09/17. Naus ea and emesis. COMPARISON: 07/06/17 TECHNIQUE: IV injection of iodinated contrast media: 75 mL Isovue 370 Oral contrast media: P.O. Isovue. FINDINGS: There is a new small right pleural effusion. The gallbladder is now surgically absent. In the gallbla dder fossa, there is a fluid collection surrounded by fat stranding. The fluid collection contains a moderately large amount of multiloculated gas. There are cholecystectomy clips. The previously mentio arnaldo minimal amount of fluid abutting the anterior surface of the junction between the body and head o f the pancreas, is no longer visualized. Pancreas is currently unremarkable. No hydronephrosis. Ather osclerotic calcification without abdominal aortic aneurysm. Enlarged prostate gland. Mild mural thick ening of the urinary bladder. No splenomegaly. No adrenal mass. No small bowel dilation. Normal appen mary jo. No acute colonic diverticulitis. There is fat stranding around the postsurgical hematoma in the gallbladder fossa which contacts and secondarily affects a loop of hepatic flexure of colon. IMPRESSION: 1. Status post recent cholecystectomy. 2. Postsurgical hematoma containing a moderately large amount of gas. It is uncertain whether th is is typical and expected, or whether this represents an abscess. Clinical correlation is recommende d. Consider followup CT in several days with IV contrast. NATHALIE Dumont POS: [facility]
[2017-07-13] MEDS ORDERED: Morphine 4 MG/ML VIAL ONE (20:53)
[2017-07-13 21:01] LABS: Troponin I 0.035 ng/mL (< 0.028)
[2017-07-13] MEDS ORDERED: Ondansetron ODT 4 MG TAB SL PRN (22:09)
[2017-07-13] MEDS ORDERED: Acetaminophen 325 MG TAB PO PRN (22:09)
[2017-07-13] MEDS ORDERED: Ondansetron HCl/PF 4 MG/2 ML Vial IVP PRN (22:09)
[2017-07-13] MEDS ORDERED: Morphine 5 MG/ML SYRINGE SLOW IVP PRN (22:10)
[2017-07-14] MEDS: Piperacillin/Tazobactam 4.5 GM in Sodium Chloride 0.9% 100 ML IVPB SCH ×3 (00:02→17:37)
[2017-07-14 00:23] VITALS: BMI 33.9
[2017-07-14 07:16] LABS: Hemoglobin 11.2 g/dL (14.0-18.0); Mean Corpuscular HGB CONC 33.2 g/dL (32.0-36.0); Mean Corpuscular Hemoglobin 33.3 pg (27.0-31.0); Mean Platelet Volume 5.9 fL (7.4-10.4); Platelet Count 277 thou/uL (130-400); RBC Distribution Width 11.7 % (11.5-14.5); Red Blood Cell (RBC) Count 3.35 mill/uL (4.70-6.10); White Blood Cell (WBC) Count 22.9 thou/uL (4.8-10.8)
[2017-07-14 07:24] LABS: INR-International Normal Ratio 1.3; PTT 36.5 SEC (22.9-36.1); Prothrombin Time 16.8 SEC (12.0-14.7)
[2017-07-14 08:14] LABS: Band 15 % (5-11); Lymphocytes 3 % (21-51); MDiff Complete? YES; Macrocytosis SLIGHT = 6-15 cells (100X) (0-5/hpf); Monocytes 6 % (0-10); Neutrophil 76 % (42-75); PLT Morphology Comment Appears Adequate; Polychromasia SLIGHT = 2-3 cells (100X) (0-2/hpf)
[2017-07-14] MEDS: Lactated Ringer's 1,000 ML IV SCH ×3 (08:39→21:22)
[2017-07-14] MEDS: Finasteride 5 MG TAB PO SCH (08:40)
[2017-07-14] MEDS ORDERED: Dextrose 50% Abboject 50 ML SYRINGE IVP PRN (09:00)
[2017-07-14] MEDS ORDERED: Dextrose 5% in Water 1,000 ML IV PRN (09:00)
[2017-07-14] MEDS ORDERED: Insulin Regular 300 UNITS/3 ML VIAL SC PRN (09:00)
[2017-07-14] MEDS: Dutasteride 0.5 MG CAP PO SCH (09:13)
--- NOTE | 2017-07-14 09:22 | HP ---
REASON FOR ADMISSION/CHIEF COMPLAINT: Abdominal pain, nausea and vomiting, fever. HISTORY OF PRESENT ILLNESS: The patient is an 87-year-old white male. I performed a laparoscopic ch olecystectomy with cholangiogram on 07/09/2017 in treatment of a resolving gallbladder pancreatitis. His surgery was challenging secondary to gallbladder inflammation and intra-abdominal obesity. None theless, the operation was performed safely and the patient was observed overnight in stable conditio n the following day and was discharged home. There were initially concerns regarding urinary retenti on, but these apparently resolved before he was discharged. Yesterday, postoperative day #5, he called my office complaining of abdominal pain and I recommended he be seen in the emergency room. In the emergency room he underwent evaluation with CT scan and laboratory studies. His laboratory st udies revealed a leukocytosis with a white blood cell count of 18.9, hemoglobin was 13.1, platelet co unt was 321. He had an obvious left shift. His chemistry profile was more or less unremarkable. He had some minor electrolyte abnormalities. Troponin levels were checked and found to be slightly nimisha vated. I am not certain if his plisse machine operator was contacted about that, but I will involve his cardiol ogist this morning. He denied any chest pain or shortness of breath. He notes that he had some nausea with some dry heaves yesterday. He complains of some abdominal pain , but is fairly nonspecific in location. PHYSICAL EXAMINATION: VITAL SIGNS: On examination he was febrile last night to a temperature of 101.2, currently is 97.7 w ith a pulse of 66, blood pressure is 124/60. GENERAL: He is a pleasant, elderly male resting in bed, in no obvious discomfort. He is alert and o riented x3 and 2 of his children are present at bedside. HEENT: Unremarkable. NECK: Supple. LUNGS: Clear to auscultation. CARDIAC: Regular rate and rhythm. ABDOMEN: Obese and protuberant. His laparoscopic incisions are healing nicely without evidence of i nfection. Bowel sounds are present and normoactive. He does not appear to be focally tender on palp ation within his abdomen. X-RAYS: CT scan revealed a subhepatic fluid collection with gas within it, consistent with either an infected hematoma or an abscess. This is almost certainly the source of his fever and leukocytosis. PLAN: 1. As referenced above. I will contact his plisse machine operator this morning although the patient does not exhibit any obvious cardiac symptoms. Since his troponin levels were checked and were very little el evated I will have Dr. Dodd see him. 2. I have contacted Radiology for percutaneous CT guided drainage of his fluid collection. Dependpalmer fan upon findings with this. I would hope that continuation of his IV antibiotics with drainage will lead to resolution of this current problem. Otherwise, there is a possibility that he could require operative evacuation of the contents with drain placement. I would hope to avoid surgery unless otiliae js.
[2017-07-14] MEDS ORDERED: Fentanyl 100 MCG/2 ML VIAL ONE (10:55)
[2017-07-14] MEDS ORDERED: Sodium Bicarbonate 2.5 MEQ/5 ML VIAL ONE (10:55)
[2017-07-14] MEDS ORDERED: Midazolam HCl 2 mg/2 ml Vial ONE (10:56)
[2017-07-14] MEDS ORDERED: Silodosin 8 MG CAP PO SCH (12:15)
[2017-07-14] MEDS ORDERED: Ondansetron HCl/PF 4 MG/2 ML Vial IVP PRN (13:24)
[2017-07-14] MEDS ORDERED: Morphine 5 MG/ML SYRINGE SLOW IVP PRN ×2 (13:25)
[2017-07-14] MEDS ORDERED: HYDROcodone/Acetaminophen 7.5/325 mg Tablet PO PRN (13:27)
--- NOTE | 2017-07-14 15:22 | CT ---
CT GUIDED PERCUTANEOUS DRAINAGE OF FLUID AND AIR COLLECTION IN THE GALLBLADDER FOSSA: 07/14/2017 HISTORY: Patient recent post cholecystectomy and now has fluid and gas collection within the gallbladder fossa with an elevated white blood cell count and fever. Drainage was requested. TECHNIQUE: The procedure, including risks and complications were explained to the patient and informed consent w as obtained. The patient was placed on the CT scan table in the supine position. Axial noncontraste d CT images were obtained through the region of the gallbladder fossa with a grid localizer in place. An area was marked and meticulously prepped and draped in the usual sterile fashion. The skin and slater bcutaneous tissues were infiltrated with buffered 1% Lidocaine for local anesthesia. A 21 gauge need le was advanced into the fluid and air collection, and confirmation of the needle tip within the maisha ection was confirmed with CT guidance. A needle was exchanged over a 0.018 inch guidewire for a 5 Faroese introducer sheath. A 0.035 inch Am hernán guide wire was placed. Confirmation of the guidewire in the collection was confirmed with thre e axial noncontrasted CT images. A small skin incision was made. The introducer sheath was exchanged over the guidewire for an 8 Fren ch tissue dilator followed by placement of an 8 Faroese [place] loop all-purpose drainage catheter. Sero sanguineous fluid and gas were aspirated from the collection. Approximately 20 mL of serosanguineous fluid was aspirated. A noncontrasted CT scan was obtained, demonstrating the catheter within the fluid and gas collection. The catheter was placed to gravity drainage and sutured in place using 2-0 Ethilon suture material. A dry, sterile dressing was placed. The patient tolerated the procedure well and without immediate complication. The patient was transpo rted to his hospital room in stable condition. IMPRESSION: Technically successful CT guided percutaneous drainage of a fluid and gas collection in the gallbladd er fossa. POS: [facility]
[2017-07-14] MEDS: HYDROcodone/Acetaminophen 7.5/325 mg Tablet PO PRN (18:13)
[2017-07-14] MEDS ORDERED: Acetaminophen 500 MG TAB PO PRN (19:45)
[2017-07-15] MEDS: Piperacillin/Tazobactam 4.5 GM in Sodium Chloride 0.9% 100 ML IVPB SCH ×4 (00:04→17:36)
[2017-07-15 04:33] LABS: #Eosinphils 0.1 thou/uL (0.0-0.7); #Lymphocytes 1.2 thou/uL (1.20-3.40); #Monocytes 0.6 thou/uL (0.11-0.59); #Neutrophils 11.3 thou/uL (1.40-6.50); %Basophils 0.3 % (0.0-1.0); %Lymphocytes 8.9 % (21.0-51.0); %Monocytes 4.6 % (0.0-10.0); %Neutrophils 85.3 % (42.0-75.0); Hemoglobin 10.5 g/dL (14.0-18.0); Mean Corpuscular Hemoglobin 33.6 pg (27.0-31.0); Mean Platelet Volume 6.4 fL (7.4-10.4); Platelet Count 256 thou/uL (130-400); RBC Distribution Width 11.9 % (11.5-14.5); Red Blood Cell (RBC) Count 3.12 mill/uL (4.70-6.10); White Blood Cell (WBC) Count 13.2 thou/uL (4.8-10.8)
[2017-07-15 04:45] LABS: ALT (SGPT) 20 U/L (8-55); AST (SGOT) 13 U/L (5-34); Albumin 2.8 g/dL (3.4-4.8); Alkaline Phosphatase 81 U/L (40-150); Anion Gap 10 mmol/L (10-20); BUN (Urea Nitrogen) 14 mg/dL (8.4-25.7); Bilirubin, Total 0.6 mg/dL (0.2-1.2); Calc. Creatinine Clearance 62 mL/min (70-130); Calcium 8.3 mg/dL (7.8-10.44); Carbon Dioxide 27 mmol/L (23-31); Chloride 103 mmol/L (98-107); Estimated GFR-MDRD 53; Globulin 2.4 g/dL (2.4-3.5); Glucose 123 mg/dL (83-110); Potassium 3.8 mmol/L (3.5-5.1); Protein, Total 5.2 g/dL (5.8-8.1); Sodium 136 mmol/L (136-145)
[2017-07-15] MEDS: metFORMIN 500 MG TAB PO SCH (08:06)
[2017-07-15] MEDS: Finasteride 5 MG TAB PO SCH (08:06)
[2017-07-15] MEDS: Silodosin 8 MG CAP PO SCH (08:07)
[2017-07-15] MEDS: Dutasteride 0.5 MG CAP PO SCH (08:08)
[2017-07-15] MEDS: HYDROcodone/Acetaminophen 7.5/325 mg Tablet PO PRN (08:15)
[2017-07-15] MEDS: Lactated Ringer's 1,000 ML IV SCH (11:27)
--- NOTE | 2017-07-15 17:07 | PRG ---
DATE OF SERVICE: 07/15/2017 SUBJECTIVE: Mr. Romo underwent a percutaneous drainage of a subhepatic fluid collection yesterday . This had the material likely consistent with an infected hematoma. Initial Gram stain of this rev eals both gram positive and gram negative rods. There is, however, no growth in the culture at 24 ho urs. I suspected this was an infected hematoma. He has been stable on Zosyn. He has been afebrile since he was admitted. He notes that he feels better and has a better appetite and much less pain cu rrently. PHYSICAL EXAMINATION: VITAL SIGNS: His temperature is 97.8, pulse 61, and blood pressure 103/64. LUNGS: Clear to auscultation. ABDOMEN: Soft and nontender. He has got a drain in the right upper quadrant with appropriate fairly minimal drainage into the drain bag. There was a 30 mL yesterday and 20 mL was drained today. ASSESSMENT: He appears to be doing well. I suspect this is an infected hematoma and this is being a ppropriately treated with the Zosyn and the drain placement. I would continue the current treatment for another 24-48 hours. Depending on final cultures, I would hope that we can discharge him home on a course of oral antibiotics, likely with a drain in place which I would plan on removing in my offi ce later.
[2017-07-16] MEDS: Piperacillin/Tazobactam 4.5 GM in Sodium Chloride 0.9% 100 ML IVPB SCH ×3 (00:17→11:23)
[2017-07-16 05:27] LABS: #Eosinphils 0.2 thou/uL (0.0-0.7); #Monocytes 0.5 thou/uL (0.11-0.59); #Neutrophils 7.4 thou/uL (1.40-6.50); %Basophils 0.3 % (0.0-1.0); %Lymphocytes 10.9 % (21.0-51.0); %Monocytes 5.3 % (0.0-10.0); %Neutrophils 81.6 % (42.0-75.0); Hemoglobin 10.7 g/dL (14.0-18.0); Mean Corpuscular HGB CONC 33.5 g/dL (32.0-36.0); Mean Corpuscular Hemoglobin 33.3 pg (27.0-31.0); Mean Corpuscular Volume 99.4 fl (80.0-94.0); Mean Platelet Volume 6.1 fL (7.4-10.4); Platelet Count 294 thou/uL (130-400); RBC Distribution Width 11.9 % (11.5-14.5); White Blood Cell (WBC) Count 9.1 thou/uL (4.8-10.8)
[2017-07-16 07:46] VITALS: BP 126/64; TEMP 98.1
[2017-07-16] MEDS: Dutasteride 0.5 MG CAP PO SCH (08:00)
[2017-07-16] MEDS: Silodosin 8 MG CAP PO SCH (08:01)
[2017-07-16] MEDS: metFORMIN 500 MG TAB PO SCH (08:02)
[2017-07-16] MEDS: Finasteride 5 MG TAB PO SCH (08:02)
--- NOTE | 2017-07-16 11:49 | EKG ---
Test Reason : Blood Pressure : / mmHG Vent. Rate : 085 BPM Atrial Rate : 085 BPM P-R Int : 188 ms QRS Dur : 096 ms QT Int : 386 ms P-R-T Axes : 027 -53 012 degrees QTc Int : 459 ms Normal sinus rhythm Left anterior fascicular block Moderate voltage criteria for LVH, may be normal variant No STEMI Abnormal ECG Confirmed by LEROY Kaye, TYLER ([id number]), manager editorial BRIAN ZHOU ([id number]) on 07/16/2017 11:48:43 AM Referred By: Confirmed By:TYLER HARPER M.D.
[2017-07-16] MEDS: HYDROcodone/Acetaminophen 7.5/325 mg Tablet PO PRN (18:09)
--- NOTE | 2017-07-19 09:58 | DIS ---
DATE OF ADMISSION: 07/13/2017 DATE OF DISCHARGE: 07/16/2017 ADMISSION DIAGNOSIS: Infected subhepatic fluid collection following prior laparoscopic cholecystecto my. DISCHARGE DIAGNOSIS: Infected subhepatic fluid collection following prior laparoscopic cholecystecto my. OPERATIONS AND PROCEDURES PERFORMED: Percutaneous placement of subhepatic drain per Radiology. ADMISSION HISTORY: Patient is an 87-year-old white male, who had undergone laparoscopic cholecystect basil about a week previously. His surgery was challenging secondary to extensive intra-abdominal obes ity. The surgery was performed for resolving gallstone pancreatitis. He seemed to do well after his surgery and was discharged home on the day after his surgery. He returned to the emergency room on the day of admission (07/13/2017) complaining of abdominal pain and fever up to about 101. CT scan a t that time revealed a fluid collection in the gallbladder fossa that was potentially consistent with a hematoma, but there was air within this raising the suspicion of infection. Patient's white blood cell count at the time of presentation was elevated at 18.9. HOSPITAL COURSE: There was suspected to be an infected fluid collection in the gallbladder fossa. T he patient was admitted to my service and placed on IV antibiotics. Diabetic control was achieved du ring his hospitalization. The following morning, he was taken to CT scan for CT-guided drainage of t he fluid collection. A modest amount of dark fluid was retrieved. Final cultures of this obtained a few days later revealed only Clostridium perfringens within the nutrient broth. The initial Gram st ain had indicated gram positive rods and gram negative rods. His culture results may have been influ enced by the IV antibiotics he was already receiving prior to his procedure. HOSPITAL COURSE: He had an uneventful hospitalization. His presenting fever was his only fever and it resolved shortly thereafter. He was hemodynamically stable throughout. His leukocytosis resolved and was entirely normal by 07/16/2017 with a white blood cell count of 9.1. His liver function tests were never significantly abnormal. When his white blood cell count had normalized, he is still afebrile, tolerating his diet, and withou t significant discomfort he is felt to be stable for discharge. His family was given discharge instr uctions for flushing of the drain and measurement of drain output. His cultures were not complete at the time of discharge. He was discharged home with prescriptions for Levaquin and Flagyl. The Flag yl should certainly cover his Clostridium. He will follow up in my office in 5 days for drain remova l.
== END 2017-07-16 18:18 | disposition home or self-care (01) | DRG 921 ==
LOC: ERS 16:28 → T4-A 20:10
PROVIDERS: ADMIT Specialist; ATTEND Specialist
PROC: 0W9G30Z Drainage of Peritoneal Cavity with Drainage Device, Percutaneous Approach (ICD-10-PCS; principal; 2017-07-14)
DX: K91.870 Postprocedural hematoma of a digestive system organ or structure following a digestive system procedure (principal); E11.9 Type 2 diabetes mellitus without complications; Y83.8 Other surgical procedures as the cause of abnormal reaction of the patient, or of later complication, without mention of misadventure at the time of the procedure; I25.10 Atherosclerotic heart disease of native coronary artery without angina pectoris; I25.2 Old myocardial infarction; K21.9 Gastro-esophageal reflux disease without esophagitis; N40.0 Benign prostatic hyperplasia without lower urinary tract symptoms; E78.5 Hyperlipidemia, unspecified
CPT/HCPCS: 36415; 36416; 47010; 71045; 74177; 77002; 80053; 81003; 82553; 83605; 83690; 83735; 84484; 85025; 85610; 85730; 86850; 86900; 86901; 87040; 87070; 87076; 87086; 87205; 93005; 94760; 96361; 96365; 96375; J2270; A4216; C1729; J2250; J2405; J2543; J3010; J3475; J7050

== ENCOUNTER 2017-08-02 19:31 | Inpatient (IN) | payer MEDICARE ==
[~2017-08-02 19:31] MED LIST: ISOVUE-370 76%-LOCM 1 ML ONE
[2017-08-02 20:02] LABS: #Eosinphils 0.1 thou/uL (0.0-0.7); #Lymphocytes 1.5 thou/uL (1.20-3.40); #Monocytes 0.4 thou/uL (0.11-0.59); %Eosinophils 1.9 % (0.0-10.0); %Lymphocytes 20.9 % (21.0-51.0); %Monocytes 6.3 % (0.0-10.0); %Neutrophils 70.9 % (42.0-75.0); Hemoglobin 12.7 g/dL (14.0-18.0); Mean Corpuscular HGB CONC 33.8 g/dL (32.0-36.0); Mean Corpuscular Hemoglobin 32.8 pg (27.0-31.0); Mean Corpuscular Volume 97.1 fl (80.0-94.0); Mean Platelet Volume 5.9 fL (7.4-10.4); Platelet Count 308 thou/uL (130-400); Red Blood Cell (RBC) Count 3.86 mill/uL (4.70-6.10)
--- NOTE | 2017-08-02 20:05 | RAD ---
FRONTAL VIEW CHEST: INDICATIONS: Chest pain. COMPARISON: 07/13/2017 FINDINGS: Patchy bibasilar opacity is present. There is a stable size of the cardiomediastinal silhouette. Le ads overly the chest, limiting detail. Osseous degenerative change is present. IMPRESSION: Bibasilar patchy densities may reflect atelectasis or pneumonitis. Recommend continued followup. POS: [facility]
[2017-08-02 20:24] LABS: ALT (SGPT) 27 U/L (8-55); AST (SGOT) 65 U/L (5-34); Albumin 3.7 g/dL (3.4-4.8); Alkaline Phosphatase 136 U/L (40-150); Anion Gap 13 mmol/L (10-20); BUN (Urea Nitrogen) 13 mg/dL (8.4-25.7); Bilirubin, Total 0.6 mg/dL (0.2-1.2); CK (CPK) 31 U/L (30-200); Calc. Creatinine Clearance 0 mL/min (70-130); Calcium 9.1 mg/dL (7.8-10.44); Carbon Dioxide 24 mmol/L (23-31); Chloride 105 mmol/L (98-107); Estimated GFR-MDRD 56; Globulin 2.5 g/dL (2.4-3.5); Glucose 164 mg/dL (83-110); Lipase 711 U/L (8-78); Potassium 4.1 mmol/L (3.5-5.1); Protein, Total 6.2 g/dL (5.8-8.1); Sodium 138 mmol/L (136-145)
[2017-08-02 20:28] LABS: CKMB 0.6 ng/mL (0-6.6); Troponin I Less than 0.010 ng/mL (< 0.028)
[2017-08-02] MEDS ORDERED: Morphine 4 MG/ML VIAL ONE ×2 (21:02→21:48)
--- NOTE | 2017-08-02 21:18 | CT ---
CT ANGIOGRAM CHEST: HISTORY: The patient was eating dinner and had sudden onset chest pain. COMPARISON: 06/10/2013 TECHNIQUE: CT angiogram of the chest was performed in the axial plane. Bilateral oblique and coronal three-dime nsional reformatted images are submitted for interpretation. FINDINGS: No mediastinal mass, lymphadenopathy, or hematoma. Heart size is at the upper limits of normal. No pericardial effusion. Limited evaluation of the aorta due to timing of bolus. No evidence of aneury sm or periaortic fat stranding. Atherosclerosis is identified. There is coronary artery disease. Upper solid organs are grossly unremarkable. There does appear to be abnormal hypoattenuation in the region of the gallbladder fossa, incompletely evaluated. Cholecystectomy clips are identified. Chronic changes of the lung parenchyma are noted. No suspicious masses or consolidation. No pleural effusion or pneumothorax. Adequate contrast opacification of the pulmonary arterial system, to the level of the segmental arter ies. No filling defect to imply thromboembolism. IMPRESSION: 1. No evidence of pulmonary artery embolism, to the level of the segmental arteries. 2. Abnormal hypoattenuation of the gallbladder fossa, incompletely evaluated. Better interrogation with an abdomen and pelvis CT is recommended. Additional intravenous contrast is not recommended. H owever, oral contrast is recommended to better evaluate the alimentary canal. POS: [facility]
[2017-08-02 23:58] VITALS: BMI 33.3
[2017-08-02 23:58] LABS: Troponin I Less than 0.010 ng/mL (< 0.028)
[2017-08-03] MEDS ORDERED: D5 1/2 NS w/20 mEq KCL 1,000 ML IV SCH (00:45)
[2017-08-03 02:54] LABS: Troponin I Less than 0.010 ng/mL (< 0.028)
[2017-08-03] MEDS: Morphine 4 MG/ML VIAL SLOW IVP PRN ×2 (06:33→16:39)
[2017-08-03] MEDS ORDERED: Ondansetron ODT 4 MG TAB SL PRN (09:32)
[2017-08-03] MEDS ORDERED: Ondansetron HCl/PF 4 MG/2 ML Vial IVP PRN (09:32)
[2017-08-03] MEDS ORDERED: Dextrose 5 %-0.45 % NaCl 1,000 ML IV SCH (09:45)
[2017-08-03] MEDS ORDERED: Dextrose 5% in Water 1,000 ML IV PRN (18:31)
[2017-08-03] MEDS ORDERED: Insulin Regular 300 UNITS/3 ML VIAL SC PRN (18:31)
[2017-08-03] MEDS ORDERED: Dextrose 50% Abboject 50 ML SYRINGE IVP PRN (18:31)
[2017-08-03] MEDS: Dextrose 5 %-0.45 % NaCl 1,000 ML IV SCH (22:01)
[2017-08-03 22:03] LABS: Glucose Accucheck Confirmation 116 mg/dl (83-110)
--- NOTE | 2017-08-03 23:12 | HP ---
DATE OF ADMISSION: 08/02/2017 REASON FOR ADMISSION AND CHIEF COMPLAINT: Abdominal pain and chest pain. HISTORY OF PRESENT ILLNESS: Mr. Romo is an 87-year-old male with past medical history o f hypertension, diabetes mellitus, coronary artery disease, recent biliary pancreatitis, status post cholecystectomy, developed sudden onset of the pain going across the lower part of the chest just abo ve the abdomen. He says it is sharp in nature, radiates to the back, associated with some nausea, no vomiting, but extremely diaphoretic. The patient states he was at the restaurant when the pain star rita. After he ate, the pain got worse to the point they have to call EMS because he was so much diap horetic and the patient became cold and clammy. The patient was seen by the EMS who found the patien t's blood pressure of 120/60, they gave him nitro and aspirin and blood pressure dropped to 97/70. T he patient did have this pain, which was lasting just 1 minute and going away on and off for the last 2 days, but this time the pain did not go away, it lasted more than few minutes. After cholecystect basil, the patient was readmitted to the hospital because of infection and it got better and released a nd he was doing well, then this happened. PAST MEDICAL HISTORY: 1. Hypertension. 2. Diabetes mellitus. 3. Coronary artery disease, status post stent. 4. Hyperlipidemia. 5. Benign prostatic hypertrophy. 6. Rodriguez's esophagus. 7. Degenerative joint disease. 8. Recent biliary pancreatitis. PAST SURGICAL HISTORY: Status post cholecystectomy, recently; status post coronary artery stent; sta tus post arthroscopic knee surgery, right knee; status post colonoscopy. CURRENT MEDICATIONS: The patient is on aspirin 81 mg daily, Vytorin 10/20 daily, metformin 500 daily , metoprolol 25 mg daily, and omeprazole 40 mg daily. ALLERGIES: No known drug allergies. FAMILY HISTORY: Nothing of interest. SOCIAL HISTORY: The patient lives with family. No history of smoking. No history of alcohol. REVIEW OF SYSTEMS: Cardiovascular: Has chest pain. No shortness of breath. Respiratory: No feve r. Gastrointestinal: Has abdominal discomfort and indigestion. Central Nervous System: No focal d eficit. No headache. No dizziness. PHYSICAL EXAMINATION: GENERAL: The patient is alert, awake, oriented x3. VITAL SIGNS: Temperature 98, pulse 57, respirations 20, blood pressure 138/70. HEENT: Head is normocephalic, atraumatic. Pupils equal and reactive. Nasopharynx is pink, moist. NECK: Supple. No JVD. LUNGS: Bilateral air entry present, no rales, no rhonchi. HEART: S1, S2 regular. ABDOMEN: Soft, no tenderness. Normal bowel sounds. RECTAL: Deferred. CENTRAL NERVOUS SYSTEM: No focal deficits. LABORATORY AND X-RAY FINDINGS: CBC shows WBC 7, hemoglobin 12, hematocrit 37, platelets 308. Metabo lic panel: Sodium 138, potassium 4, chloride 104, CO2 of 24, urea nitrogen 13, creatinine 1.2, and g lucose 164. Serum lipase was 711, it was 54 last time, a couple of weeks ago. CT angio chest, negat trudy. Chest x-ray, negative. EKG shows sinus bradycardia with heart rate of 57, no acute ST-T wave c hanges seen. ASSESSMENT: 1. Acute pancreatitis. 2. Chest pain, rule out myocardial infarction. 3. Hypertension. 4. Coronary artery disease. 5. Diabetes mellitus. PLAN: 1. Vital signs q.4 hours. 2. Activity: As tolerated. 3. Allergies: No known drug allergies. 4. Diet: N.p.o. 5. IV fluids: D5 half at 80 mL per hour. 6. Accu-Cheks q.6 hours. 7. Sliding scale, mild. 8. We will repeat serum lipase in the morning, hold home medication. 9. GI consult. We will obtain CT of the abdomen.
[2017-08-04 04:55] LABS: #Eosinphils 0.1 thou/uL (0.0-0.7); #Monocytes 0.5 thou/uL (0.11-0.59); #Neutrophils 5.4 thou/uL (1.40-6.50); %Basophils 0.7 % (0.0-1.0); %Eosinophils 1.9 % (0.0-10.0); %Lymphocytes 13.6 % (21.0-51.0); %Monocytes 7.7 % (0.0-10.0); %Neutrophils 76.2 % (42.0-75.0); Hemoglobin 11.9 g/dL (14.0-18.0); Mean Corpuscular HGB CONC 34.1 g/dL (32.0-36.0); Mean Corpuscular Volume 96.9 fl (80.0-94.0); Mean Platelet Volume 6.1 fL (7.4-10.4); Platelet Count 242 thou/uL (130-400); RBC Distribution Width 12.2 % (11.5-14.5); Red Blood Cell (RBC) Count 3.59 mill/uL (4.70-6.10)
[2017-08-04 05:15] LABS: ALT (SGPT) 76 U/L (8-55); AST (SGOT) 63 U/L (5-34); Albumin 3.3 g/dL (3.4-4.8); Alkaline Phosphatase 178 U/L (40-150); Anion Gap 9 mmol/L (10-20); BUN (Urea Nitrogen) 7 mg/dL (8.4-25.7); Bilirubin, Total 0.4 mg/dL (0.2-1.2); Calc. Creatinine Clearance 94 mL/min (70-130); Calcium 8.7 mg/dL (7.8-10.44); Carbon Dioxide 26 mmol/L (23-31); Chloride 106 mmol/L (98-107); Estimated GFR-MDRD 88; Globulin 2.2 g/dL (2.4-3.5); Glucose 129 mg/dL (83-110); Lipase 116 U/L (8-78); Potassium 3.8 mmol/L (3.5-5.1); Protein, Total 5.5 g/dL (5.8-8.1); Sodium 137 mmol/L (136-145)
[2017-08-04] MEDS: Dextrose 5 %-0.45 % NaCl 1,000 ML IV SCH ×2 (05:57→14:49)
--- NOTE | 2017-08-04 08:42 | CON ---
DATE OF CONSULTATION: 08/03/2017 REASON FOR CONSULTATION: Acute pancreatitis. CONSULTING PHYSICIAN: Marcelo Temple MD HISTORY OF PRESENT ILLNESS: The patient is an 87-year-old male with past medical history of hyperten martin; diabetes; coronary artery disease, status post stent placement; Rodriguez's esophagus; GERD; BPH; hyperlipidemia; and pancreatitis, presenting with acute onset pancreatitis. Per chart review, the david valladares was recently admitted to the hospital with increased pancreatitis. There was felt to be due t o a biliary origin with biliary sludge being the causative mechanism behind his acute pancreatitis. He subsequently underwent a cholecystectomy on 07/10/2017 that was complicated by an infected hematom a within the gallbladder fossa that required antibiotic administration as well as a drain placement t o facilitate healing of this region. He states that he was followed up [facility] approxi mately a week and a half ago with the drain removed at that particular point in time and had been doi ng decently up until approximately 1 week ago. For the last week, he has been having intermittent alberto uts of midepigastric abdominal pain that would radiate to his back and chest that would occur 1-2 jerad es per day, we would only last for 1-2 minutes in duration. However, yesterday evening he had acute onset of this midepigastric abdominal pain again with radiation to his back that did not amie within a few minutes and continued until he sought medical assistance here at the hospital, associated symp toms with his mid epigastric/chest pain or diaphoresis and increased shortness of breath. Currently, he denies any nausea, vomiting, fevers, chills, dysphagia or odynophagia, constipation or diarrhea. On admission, he was noted to have a significantly elevated lipase and was subsequently admitted to the hospital for treatment of acute pancreatitis. REVIEW OF SYSTEMS: A 10-category review of systems was obtained with all responsive negative except for the pertinent positives as listed in the HPI. PAST MEDICAL HISTORY: As per HPI. PAST SURGICAL HISTORY: Cholecystectomy. FAMILY HISTORY: Denies any GI malignancy. SOCIAL HISTORY: Denies any tobacco, alcohol, or illicit drug use. OUTPATIENT MEDICATIONS: Reviewed. ALLERGIES: No known drug allergies. PHYSICAL EXAMINATION: VITAL SIGNS: Temperature of 98.1, pulse 60, blood pressure 125/59, respiratory rate 16, satting 92% on 2 liters nasal cannula. GENERAL: The patient is lying in bed in no acute distress. No conversational dyspnea. He is alert and oriented x4. NECK: Supple. No JVD noted. CARDIOVASCULAR: Regular rate and rhythm with no discernible murmurs, gallops, or rubs. RESPIRATORY: Clear to auscultation bilaterally with no discernible wheezes or rales. ABDOMEN: Normoactive bowel sounds, soft, nontender, nondistended. EXTREMITIES: No cyanosis, clubbing, or edema. LABORATORY DATA: CBC with a white blood cell count of 7, hemoglobin 12.7, hematocrit 37.4, platelets 308,000. Chemistry with a sodium of 138, potassium 4.1, chloride 105, CO2 of 24, BUN 13, creatinine 1.22, glucose 164, AST of 65, ALT 27, alkaline phosphatase 136, total bilirubin 0.6, albumin 3.7, li pase . IMAGING DATA: Chest/thorax CT angiogram, did not show any evidence of pulmonary artery embolism. Th ere was some abnormal hypoattenuation within the gallbladder fossa that was incompletely evaluated wi th better interrogation with abdomen and pelvis CT recommended. ASSESSMENT AND PLAN: The patient is an 87-year-old male with past medical history of hypertension; d iabetes; coronary artery disease, status post stent placement; GERD; Rodriguez's esophagus (stable); BP H; hyperlipidemia; and biliary pancreatitis presenting with a recurrence of acute pancreatitis. Acute pancreatitis: The patient is presenting with a recent hospitalization with pancreatitis that w as felt to be due to a biliary origin. No ERCP was performed at that time, but he subsequently under went a cholecystectomy that was complicated with an infected hematoma within the biliary fossa requir ing BLAIR drain placement. He subsequently had a BLAIR drain removed around 1-1/2 weeks ago and had been d oing okay until 1 week ago when he started to have intermittent recurrences of this midepigastric abd ominal pain. However, over the last 24 hours of the midepigastric abdominal pain, increased with rad iation to his back consistent with prior bouts of acute pancreatitis. On admission, he was noted to have an elevated lipase consistent with the diagnosis of pancreatitis. At this point, the origin of his pancreatitis is unknown with a biliary origin less likely given the fact that his gallbladder has been removed. His current LFT pattern is not indicative of obstruction or gallstone pancreatitis, r ather at this time his pancreatitis could be an extension of chronic pancreatitis associated with his acute bout approximately 2-3 weeks ago versus idiopathic pancreatitis versus medication induced (les s likely). Current stratification of his acute pancreatitis due to the biceps score of 1, which does carry a slightly increased risk of mortality. However at this time, I would still consider this mil d pancreatitis. RECOMMENDATIONS: 1. We would increase his IV fluids to D5 1/2 normal saline at approximately 125 mL per hour to avoid third spacing from acute pancreatitis. 2. Patient is actually hungry, so I would advance his diet to a clear liquid diet and advance as brian erated. 3. Agree with obtaining a CT of the abdomen and pelvis for further delineation of the current anatom y and anything that might also be contributing to his repeat bout of pancreatitis. 4. Continue pain management per primary team. We will continue to follow. Please call with any questions.
--- NOTE | 2017-08-04 09:15 | CT ---
CT ABDOMEN AND PELVIS WITH IV CONTRAST: Date: 08-04-17 History: Acute pancreatitis. Abdominal pain. History of cholecystectomy with drain now removed. 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 Mild atelectasis is also present at each lung base. Vascular calcifications are again seen in the abdominal aorta and iliac arteries. Post cholecystectomy changes are noted. Fluid collection in the gallbladder fossa is again seen but t here has been decrease in size of the collection in the gallbladder fossa compared to the prior studi es. The collection on recent CTA examination of the chest demonstrated collection measuring 3.6 cm, n ow the collection measures 3.1 cm. No gas is seen in the collection. The liver, spleen, pancreas, bilateral adrenal glands, right kidney, urinary bladder and opacified sm all bowel demonstrate a normal CT appearance. There are stable low density lesions seen within the midportion inferior pole left kidney likely rela rita to small renal cysts. There is no significant peripancreatic inflammatory changes seen on this exam to suggest radiographic evidence of pancreatitis. No pancreatic or peripancreatic fluid collection is seen. The appendix is visualized and normal in caliber. There has been no other interval change compared to prior study. IMPRESSION: 1. Small fluid collection in the gallbladder fossa. The collection has diminished in size compared to recent CTA on 08-02-17. 2. Left renal cyst. 3. Chronic bibasilar lung changes. 4. No radiographic findings to suggest pancreatitis. There are inflammatory changes seen just inferio r to the level of the gallbladder and medial to right hepatic lobe seen on prior study on 07-13-17, bu t have improved from prior study. 5. No pancreatic or peripancreatic fluid collections visualized. POS: [facility]
--- NOTE | 2017-08-04 13:39 | CON ---
DATE OF CONSULTATION: 08/04/2017 HISTORY OF PRESENT ILLNESS: The patient is a pleasant 87-year-old gentleman presents for evaluation of abdominal discomfort. The patient has a previous history of coronary artery disease. He is status post percutaneous transluminal coronary angioplasty and stent placed to LAD in the year 1999. The patient has subsequently been on medical therapy. He has done remarkably well. He was in usual state of health until recently. He was admitted with cholecystitis and underwent cholecystectomy. The patient on the day of admission developed acute upper abdominal discomfort. He states it was a persistent discomfort. He came to the emergency room for further evaluation. The patient denies having any chest discomfort. PAST MEDICAL HISTORY: 1. CAD. 2. Hypertension. 3. Hyperlipidemia. 4. Rodriguez esophagitis. 5. Diabetes mellitus. 6. BPH. PAST SURGICAL HISTORY: Knee replacement. SOCIAL HISTORY: Former smoker, nondrinker. FAMILY HISTORY: Strong family history of heart disease. MEDICATIONS: See nursing list. REVIEW OF SYSTEMS: A 10-point system unremarkable. No history of easy bruising or bleeding, bright red blood per rectum. PHYSICAL EXAMINATION: GENERAL: Obese gentleman in no acute distress. VITAL SIGNS: Blood pressure was 110/58, heart rate is 66. NECK: Showed no jugular venous distention. LUNGS: Coarse breath sounds bilateral. HEART: Regular rate and rhythm, normal S1, S2. ABDOMEN: Distended. EXTREMITIES: Showed no edema. SKIN: Dry. NEUROLOGIC: Nonfocal. VASCULAR: Radial pulses are 2+. LABORATORY DATA: Sodium 137, potassium 3.8, chloride 106, bicarb 26, BUN 7, creatinine is 0.83, glucose 129, troponin less than 0.01. White blood cell count 7.0, hemoglobin 11.9, hematocrit 34.8, platelets are 242. His EKG revealed normal sinus rhythm, left anterior fascicular block, no acute ST-T wave changes. IMPRESSION: 1. Pancreatitis. 2. History of a recent cholecystectomy. 3. History of percutaneous transluminal coronary angioplasty and stent placed to the left anterior descending. 4. History of an ischemic cardiomyopathy. 5. Hypertension. 6. Diabetes mellitus. 7. Dyslipidemia. 8. Obesity. This gentleman presents with abdominal discomfort suggestive of pancreatitis. His lipase is elevated. From a cardiac standpoint, he will be restarted on his medications as soon as possible. We will follow this patient with you through his hospitalization. PAWAN
[2017-08-04] MEDS ORDERED: Sodium Chloride 0.9% 1,000 ML IV SCH (17:00)
--- NOTE | 2017-08-04 17:11 | PRG ---
DATE OF SERVICE: 08/04/2017 SUBJECTIVE: The patient is feeling much better. He has had no pain medication at all today. His la st pain medication was last night at 5:00 p.m. He reports he is hungry and is tolerating clear liqui ds and wants to advance his diet. He has had no nausea or vomiting. His bowels are moving normally. OBJECTIVE: VITAL SIGNS: Temperature 97.7, pulse 62, respiratory rate 18, blood pressure 137/64. CHEST: Clear. CARDIOVASCULAR: Regular rate and rhythm. ABDOMEN: Benign. LABORATORY DATA: Shows hemoglobin 11.9, hematocrit 34.8, and white blood cell count is 7.0. Sales Marketing Coordinator dinora: Significant for AST of 63, ALT of 76, total bilirubin of 0.4, albumin of 3.3, and lipase of 11 6. Admission labs show an AST of 65 and lipase of 711. ASSESSMENT: 1. 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 2. Recent cholecystectomy, complicated by a gallbladder fossa abscess. RECOMMENDATIONS: 1. Advance diet. 2. Decrease IV fluids. 3. If the patient has another recurrent episode, he may need an ERCP; although intraoperative cholan giogram was performed at the time of cholecystectomy and was normal.
[2017-08-05 07:56] LABS: ALT (SGPT) 53 U/L (8-55); AST (SGOT) 29 U/L (5-34); Albumin 3.5 g/dL (3.4-4.8); Alkaline Phosphatase 164 U/L (40-150); Bilirubin, Direct 0.2 mg/dL (0.1-0.3); Bilirubin, Total 0.4 mg/dL (0.2-1.2); Cardiac Risk 3.9 (Less than 4.5); Cholesterol 102 mg/dl (< 200 Desired); HDL Cholesterol 26 mg/dL (>60 Neg Risk); LDL Cholesterol, Calculated 57 mg/dL; Triglycerides 97 mg/dL (Less than 150)
[2017-08-05] MEDS ORDERED: Ubidecarenone 50 MG CAP PO SCH (09:45)
[2017-08-05] MEDS ORDERED: metFORMIN 500 MG TAB PO SCH (10:00)
[2017-08-05] MEDS ORDERED: Silodosin 8 MG CAP PO SCH (10:00)
[2017-08-05] MEDS ORDERED: Ezetimibe 10 MG TAB PO SCH (10:00)
[2017-08-05] MEDS ORDERED: Aspirin 81 mg Enteric Coated Tablet PO SCH (10:00)
--- NOTE | 2017-08-05 14:51 | PRG ---
DATE OF SERVICE: 08/05/2017 SUBJECTIVE: The patient is eating well. He is eating a normal diet now without any nausea or vomiti ng. He is having no epigastric pain. OBJECTIVE: VITAL SIGNS: Temperature 97.6, pulse 75, respiratory rate 18 and blood pressure 141/67. CHEST: Clear. CARDIOVASCULAR: Regular rate and rhythm. ABDOMEN: Soft and nontender. LABORATORY DATA: Shows normal LFTs except for alkaline phosphatase of 164, lipase is 70. ASSESSMENT: 1. Recurrent pancreatitis - etiology is unknown, but possibly patient passed a small stone. 2. Recent cholecystectomy, complicated by gallbladder fossa abscess. RECOMMENDATIONS: 1. Stable for discharge from GI standpoint. 2. May need ERCP versus EUS if any recurrent episodes occur.
[2017-08-05 15:52] VITALS: BP 137/63; TEMP 98.7
--- NOTE | 2017-08-05 17:06 | RAD ---
RIGHT ANKLE THREE VIEWS: 08/05/17 HISTORY: Swelling of the right ankle. FINDINGS/IMPRESSION: The ankle mortise is maintained. There are degenerative changes. No acute fracture or dislocation or bony destruction seen. Likely old fracture of the medial malleolus. Plantar calcaneal spur is present . POS: [facility]
[2017-08-05] MEDS ORDERED: Finasteride 5 MG TAB PO SCH (21:00)
[2017-08-05] MEDS ORDERED: Atorvastatin Calcium 40 MG TAB PO SCH (21:00)
[2017-08-06] MEDS ORDERED: metFORMIN 500 MG TAB PO SCH (08:00)
[2017-08-06] MEDS ORDERED: Silodosin 8 MG CAP PO SCH (08:00)
[2017-08-06] MEDS ORDERED: Ubidecarenone 50 MG CAP PO SCH (09:00)
[2017-08-06] MEDS ORDERED: Aspirin 81 mg Enteric Coated Tablet PO SCH (09:00)
[2017-08-06] MEDS ORDERED: Ezetimibe 10 MG TAB PO SCH (09:00)
--- NOTE | 2017-08-06 14:16 | DIS ---
DATE OF ADMISSION: 08/02/2017 DATE OF DISCHARGE: 08/05/2017 ADMITTING DIAGNOSES: 1. Acute pancreatitis. 2. Chest pain, rule out myocardial infarction. 3. Hypertension. 4. Coronary artery disease. 5. Diabetes mellitus. FINAL DIAGNOSES: 1. Acute pancreatitis, resolved. 2. Chest pain. No evidence of acute myocardial infarction. 3. Hypertension. 4. Coronary artery disease. 5. Diabetes mellitus. BRIEF SUMMARY OF HOSPITAL COURSE: Mr. Romo is an 87-year-old male admitted because of a cute abdominal pain. His lipase was more than 700. The patient was found to have acute pancreatitis , although CT of the abdomen did not show any inflammation of the pancreas. A GI consult was done. The patient was seen by Dr. Diggs and felt patient had pancreatitis of unknown etiology. His lipase c renetta down next day to 116 and so he was started on diet. The patient tolerated diet very well and lip ase came down below on next day. The patient was also seen by Cardiology in view of his chest pain, but cardiac enzymes are within normal limits. He did not have any more chest pain. In view of impro vement, the patient was discharged. At the time of discharge, he was stable. PHYSICAL EXAMINATION: VITAL SIGNS: Stable. LUNGS: Clear. HEART: Sounds regular. ABDOMEN: Soft, nontender, and nondistended. Bowel sounds are heard. DISCHARGE MEDICATIONS: Include Rapaflo 8 mg daily, omeprazole 40 mg daily, metoprolol 25 mg daily, m etformin 500 daily, aspirin 81 mg daily, Coenzyme Q daily, finasteride 5 mg daily, Zetia 1 tablet 10 mg daily, and atorvastatin 80 mg. FOLLOWUP: The patient will come for followup in 2 weeks.
--- NOTE | 2017-10-09 14:28 | EKG ---
Test Reason : Blood Pressure : / mmHG Vent. Rate : 057 BPM Atrial Rate : 057 BPM P-R Int : 212 ms QRS Dur : 104 ms QT Int : 456 ms P-R-T Axes : 037 -50 006 degrees QTc Int : 443 ms Sinus bradycardia with 1st degree A-V block Left anterior fascicular block Moderate voltage criteria for LVH, may be normal variant Cannot rule out Septal infarct , age undetermined Abnormal ECG Confirmed by JUAN VUONG, GIL ([id number]), order editor BRIAN ZHOU ([id number]) on 10/09/2017 2:28:01 PM Referred By: Confirmed By:GIL MARTINEZ MD
== END 2017-08-05 18:46 | disposition home or self-care (01) | DRG 440 ==
LOC: ERS 19:31 → 2NO 21:47
PROVIDERS: ADMIT Internal Medicine; ATTEND Internal Medicine
DX: K85.90 Acute pancreatitis without necrosis or infection, unspecified (principal); E11.9 Type 2 diabetes mellitus without complications; I25.5 Ischemic cardiomyopathy; I25.10 Atherosclerotic heart disease of native coronary artery without angina pectoris; I10 Essential (primary) hypertension; E78.5 Hyperlipidemia, unspecified; N40.0 Benign prostatic hyperplasia without lower urinary tract symptoms; M19.90 Unspecified osteoarthritis, unspecified site; R07.9 Chest pain, unspecified; K21.9 Gastro-esophageal reflux disease without esophagitis; I25.2 Old myocardial infarction
CPT/HCPCS: 36415; 36416; 71045; 71275; 74177; 80053; 80061; 80076; 82550; 82553; 83690; 83880; 84484; 85025; 85379; 93005; 94760; 96361; 96374; 96376; A4216; J2270

== ENCOUNTER 2017-09-06 12:56 | Emergency (ER) | payer MEDICARE ==
[2017-09-06 13:30] LABS: #Eosinphils 0.2 thou/uL (0.0-0.7); #Lymphocytes 1.3 thou/uL (1.20-3.40); #Monocytes 0.4 thou/uL (0.11-0.59); #Neutrophils 4.5 thou/uL (1.40-6.50); %Basophils 0.4 % (0.0-1.0); %Eosinophils 2.7 % (0.0-10.0); %Lymphocytes 20.5 % (21.0-51.0); %Monocytes 6.7 % (0.0-10.0); %Neutrophils 69.7 % (42.0-75.0); Hemoglobin 13.2 g/dL (14.0-18.0); Mean Corpuscular HGB CONC 33.9 g/dL (32.0-36.0); Mean Corpuscular Hemoglobin 33.1 pg (27.0-31.0); Mean Corpuscular Volume 97.5 fl (80.0-94.0); Mean Platelet Volume 6.7 fL (7.4-10.4); Platelet Count 198 thou/uL (130-400); RBC Distribution Width 12.6 % (11.5-14.5); White Blood Cell (WBC) Count 6.5 thou/uL (4.8-10.8)
[2017-09-06 13:55] LABS: ALT (SGPT) 17 U/L (8-55); AST (SGOT) 15 U/L (5-34); Albumin 3.8 g/dL (3.4-4.8); Alkaline Phosphatase 92 U/L (40-150); Anion Gap 9 mmol/L (10-20); BUN (Urea Nitrogen) 13 mg/dL (8.4-25.7); Bilirubin, Total 0.3 mg/dL (0.2-1.2); CK (CPK) 45 U/L (30-200); Calc. Creatinine Clearance 0 mL/min (70-130); Carbon Dioxide 26 mmol/L (23-31); Chloride 108 mmol/L (98-107); Estimated GFR-MDRD 72; Globulin 2.3 g/dL (2.4-3.5); Glucose 151 mg/dL (83-110); Lipase 54 U/L (8-78); Potassium 3.7 mmol/L (3.5-5.1); Protein, Total 6.1 g/dL (5.8-8.1); Sodium 139 mmol/L (136-145)
[2017-09-06 13:58] LABS: CKMB 0.9 ng/mL (0-6.6); Troponin I Less than 0.010 ng/mL (< 0.028)
[2017-09-06 14:04] LABS: Prothrombin Time 13.8 SEC (12.0-14.7)
--- NOTE | 2017-09-06 14:32 | RAD ---
PORTABLE CHEST: History: Chest pain. Comparison: 08-02-17 FINDINGS: The lungs appear clear of infiltrate. Heart size is upper normal. Vasculature within normal range. IMPRESSION: No acute process. POS: [facility]
== END 2017-09-06 15:06 | disposition home or self-care (01) ==
LOC: ERS 12:56
DX: R00.2 Palpitations (principal); I48.0 Paroxysmal atrial fibrillation; I25.10 Atherosclerotic heart disease of native coronary artery without angina pectoris; I25.2 Old myocardial infarction; K21.9 Gastro-esophageal reflux disease without esophagitis; E11.9 Type 2 diabetes mellitus without complications; E78.5 Hyperlipidemia, unspecified; Z79.899 Other long term (current) drug therapy; Z79.82 Long term (current) use of aspirin
CPT/HCPCS: 36415; 71045; 80053; 82550; 82553; 83690; 83880; 84484; 85025; 85610; 93005; 94760

== ENCOUNTER 2018-05-23 09:27 | Outpatient (CLI) | payer MEDICARE ==
--- NOTE | 2018-05-23 10:53 | RAD ---
THORACIC SPINE THREE VIEWS: History: Mid back pain. FINDINGS: Bones appear demineralized. There is flowing calcification seen along the thoracic spine. This would raise the possibility of ankylosing spondylitis. There are no signs of any compression fractures. Ped icles appear intact. IMPRESSION: Radiographic features that would suggest ankylosing spondylitis. POS: [facility]
== END 2018-05-23 09:28 | disposition home or self-care (01) ==
LOC: BICRAD 09:27
PROVIDERS: ATTEND Internal Medicine
DX: M54.9 Dorsalgia, unspecified (principal)
CPT/HCPCS: 72072

== ENCOUNTER 2018-06-15 18:46 | Emergency (ER) | payer MEDICARE ==
--- NOTE | 2018-06-15 19:34 | RAD ---
LEFT HIP TWO VIEWS: 06/15/18 INDICATION: Injury, pain. COMPARISON: 04/27/16. FINDINGS: There is moderate osteoarthritis. No fracture or dislocation is seen. Pelvic phlebolith formation pre sent. IMPRESSION: Moderate osteoarthritis of the left hip, without acute fracture or dislocation. POS: [facility]
--- NOTE | 2018-06-15 19:35 | RAD ---
LEFT SHOULDER THREE VIEWS: 06/15/18 INDICATION: Pain and injury. FINDINGS: No fracture dislocation. Moderate left AC joint osteoarthritis is present. No significant interval change from 12/10/16 exam. IMPRESSION: No acute fracture left shoulder. POS: [facility]
[2018-06-15] MEDS ORDERED: traMADol HCl 50 MG TAB ONE (19:49)
== END 2018-06-15 20:06 | disposition home or self-care (01) ==
LOC: SCSER 18:46
DX: S43.102A Unspecified dislocation of left acromioclavicular joint, initial encounter (principal); S70.02XA Contusion of left hip, initial encounter; I25.10 Atherosclerotic heart disease of native coronary artery without angina pectoris; I25.2 Old myocardial infarction; K21.9 Gastro-esophageal reflux disease without esophagitis; E11.9 Type 2 diabetes mellitus without complications; E78.5 Hyperlipidemia, unspecified; W18.30XA Fall on same level, unspecified, initial encounter
CPT/HCPCS: 99283

== ENCOUNTER 2018-07-15 08:11 | Outpatient (CLI) | payer MEDICARE ==
[2018-07-15 09:54] LABS: #Eosinphils 0.1 thou/uL (0.0-0.7); #Lymphocytes 1.4 thou/uL (1.20-3.40); #Monocytes 0.6 thou/uL (0.11-0.59); %Basophils 0.4 % (0.0-1.0); %Eosinophils 2.2 % (0.0-10.0); %Lymphocytes 22.3 % (21.0-51.0); %Neutrophils 66.1 % (42.0-75.0); Hemoglobin 14.2 g/dL (14.0-18.0); Mean Corpuscular HGB CONC 33.8 g/dL (32.0-36.0); Mean Corpuscular Volume 97.8 fL (78.0-98.0); Mean Platelet Volume 6.5 fL (7.4-10.4); Platelet Count 243 thou/uL (130-400); RBC Distribution Width 11.9 % (11.5-14.5); Red Blood Cell (RBC) Count 4.29 mill/uL (4.70-6.10); White Blood Cell (WBC) Count 6.1 thou/uL (4.8-10.8)
[2018-07-15 10:17] LABS: ALT (SGPT) 33 U/L (8-55); AST (SGOT) 33 U/L (5-34); Albumin 4.1 g/dL (3.4-4.8); Alkaline Phosphatase 93 U/L (40-150); Anion Gap 11 mmol/L (10-20); BUN (Urea Nitrogen) 11 mg/dL (8.4-25.7); Bilirubin, Total 0.4 mg/dL (0.2-1.2); Calc. Creatinine Clearance 0 mL/min (70-130); Calcium 9.3 mg/dL (7.8-10.44); Carbon Dioxide 28 mmol/L (23-31); Chloride 105 mmol/L (98-107); Estimated GFR-MDRD 62; Globulin 2.4 g/dL (2.4-3.5); Glucose 131 mg/dL (83-110); Potassium 4.6 mmol/L (3.5-5.1); Protein, Total 6.5 g/dL (5.8-8.1); Sodium 139 mmol/L (136-145)
== END 2018-07-15 08:12 | disposition home or self-care (01) ==
LOC: LABBT 08:11
PROVIDERS: ATTEND Internal Medicine Cardiovascular Disease
DX: Z01.812 Encounter for preprocedural laboratory examination (principal); R94.39 Abnormal result of other cardiovascular function study
CPT/HCPCS: 80053; 85025

== ENCOUNTER 2018-07-20 05:41 | Day surgery (SDC) | payer MEDICARE ==
[2018-07-15 08:37] VITALS: BMI 32.5
[2018-07-20] MEDS ORDERED: Fentanyl 100 MCG/2 ML VIAL ONE (07:06)
[2018-07-20] MEDS ORDERED: Midazolam HCl 2 mg/2 ml Vial ONE (07:06)
[2018-07-20] MEDS ORDERED: Protamine Sulfate 50 MG/5 ML VIAL ONE (07:28)
[2018-07-20] MEDS ORDERED: Iopamidol 370 76% 100 ML VIAL ONE (17:15)
== END 2018-07-20 15:55 | disposition home or self-care (01) ==
LOC: CCL 05:41
PROVIDERS: ATTEND Internal Medicine Cardiovascular Disease
PROC: 4A023N7 Measurement of Cardiac Sampling and Pressure, Left Heart, Percutaneous Approach (ICD-10-PCS; principal; 2018-07-20)
PROC: B2111ZZ Fluoroscopy of Multiple Coronary Arteries using Low Osmolar Contrast (ICD-10-PCS; 2018-07-20)
DX: I25.10 Atherosclerotic heart disease of native coronary artery without angina pectoris (principal); I10 Essential (primary) hypertension; E78.5 Hyperlipidemia, unspecified; E78.00 Pure hypercholesterolemia, unspecified; I25.2 Old myocardial infarction; M35.3 Polymyalgia rheumatica; Z87.891 Personal history of nicotine dependence; Z79.82 Long term (current) use of aspirin; Z79.84 Long term (current) use of oral hypoglycemic drugs; Z79.899 Other long term (current) drug therapy; Z95.5 Presence of coronary angioplasty implant and graft
CPT/HCPCS: 85347; 93454; 93458; 99152; 99153; C1769; J2250; J2720; J3010; Q9967

== ENCOUNTER 2018-11-10 13:33 | Outpatient (CLI) | payer MEDICARE ==
--- NOTE | 2018-11-10 14:46 | RAD ---
LUMBAR SPINE 4 VIEWS: HISTORY: Lumbar degenerative disk disease. FINDINGS: Multilevel disk-osteophytosis and facet arthrosis changes are noted. No acute fracture or dislocatio n. No focal bone lesion. IMPRESSION: Extensive spondylosis. No evidence of abnormal translation between flexion and extension. No acute process. POS: [facility]
--- NOTE | 2018-11-10 16:00 | MRI ---
LUMBAR SPINE MRI WITHOUT IV CONTRAST: HISTORY: M51.36, lumbar degenerative disk disease, low back pain radiating to left ankle. COMPARISON: 12/17/2011. FINDINGS: There are generalized disk desiccation changes and ligamentum and facet hypertrophic changes. Multip le bilateral renal T2 hyperintense, T1 hypointense nodular foci involving the kidneys, statistically multiple renal cysts. Conus medullaris region is unremarkable. Generalized disk desiccation changes and ligament and facet hypertrophic changes. T12-L1 disk: No significant canal or foraminal stenosis. L1-L2 disk: No significant stenosis. L2-L3 disk: Diffuse disk bulging with mild central canal and moderate lateral recess stenosis and bi lateral foraminal stenosis with prominent ligamentum flavum. L3-L4 disk: Bilateral recess thinning and left foraminal stenosis. L4-L5 disk: Evidence for annular fissures. Moderate central canal and lateral recess stenosis and b ilateral foraminal stenosis worse on the left side. L5-S1 disk: Evidence for annular fissures with moderate bilateral foraminal stenosis. Minimal type I end plate changes involving the superior end plate of S1. IMPRESSION: 1. Variable severity multilevel canal, lateral recess, and foraminal stenosis. 2. Type I end plate changes involving the superior end plate region of S1. 3. Bilateral renal abnormalities, evidence for renal cysts. Stenotic changes at L2-L3 have progress ed somewhat when compared to the prior study. POS: [facility]
== END 2018-11-10 13:34 | disposition home or self-care (01) ==
LOC: BICMRI 13:33
PROVIDERS: ATTEND Nurse Practitioner Family
DX: M51.36 Other intervertebral disc degeneration, lumbar region (principal); M47.816 Spondylosis without myelopathy or radiculopathy, lumbar region; M48.061 Spinal stenosis, lumbar region without neurogenic claudication; N28.1 Cyst of kidney, acquired
CPT/HCPCS: 72110; 72148

== ENCOUNTER 2019-02-09 06:35 | Inpatient (IN) | payer MEDICARE ==
[2019-02-09 07:32] LABS: Hemoglobin 15.4 g/dL (14.0-18.0); Mean Corpuscular HGB CONC 33.9 g/dL (32.0-36.0); Mean Corpuscular Hemoglobin 33.9 pg (27.0-31.0); Mean Platelet Volume 6.6 fL (7.4-10.4); Platelet Count 264 thou/uL (130-400); RBC Distribution Width 12.2 % (11.5-14.5); Red Blood Cell (RBC) Count 4.54 mill/uL (4.70-6.10); White Blood Cell (WBC) Count 20.7 thou/uL (4.8-10.8)
--- NOTE | 2019-02-09 07:39 | RAD ---
EXAM: Single view of the chest HISTORY: Fever COMPARISON: 09/06/2017 FINDINGS: Single view of the chest shows a normal sized cardiomediastinal silhouette. There is no kiana dence of consolidation, mass, or pleural effusion. Degenerative changes are seen in the spine. IMPRESSION: No evidence of acute cardiopulmonary disease
[2019-02-09 07:51] LABS: ALT (SGPT) 26 U/L (8-55); AST (SGOT) 38 U/L (5-34); Alkaline Phosphatase 110 U/L (40-110); Anion Gap 16 mmol/L (10-20); BUN (Urea Nitrogen) 20 mg/dL (8.4-25.7); Bilirubin, Total 0.4 mg/dL (0.2-1.2); Calc. Creatinine Clearance 0 mL/min (70-130); Calcium 8.8 mg/dL (7.8-10.44); Carbon Dioxide 20 mmol/L (23-31); Chloride 103 mmol/L (98-107); Estimated GFR-MDRD 60; Globulin 2.4 g/dL (2.4-3.5); Glucose 168 mg/dL (83-110); Lipase 46 U/L (8-78); Potassium 4.2 mmol/L (3.5-5.1); Protein, Total 6.4 g/dL (5.8-8.1); Sodium 135 mmol/L (136-145)
[2019-02-09 07:53] LABS: Band 5 % (5-11); Lymphocytes 10 % (21-51); MDiff Complete? YES; Metamyelocyte 1 % (0-0); Monocytes 2 % (0-10); Neutrophil 81 % (42-75); Platelet Morphology Comment Appears Adequate; RBC Morphology Normal; Reactive Lymphocytes 1 % (0-10)
[2019-02-09] MEDS ORDERED: Sodium Chloride 0.9% 100 ML ONE (08:11)
[2019-02-09] MEDS ORDERED: Piperacillin/Tazobactam 4.5 GM VIAL ONE (08:11)
[2019-02-09] MEDS ORDERED: Acetaminophen 500 MG TAB ONE (08:43)
[2019-02-09 09:07] LABS: Bilirubin Negative (Negative); Blood, Urine Negative (Negative); Clarity Clear (Clear); Glucose, Urine (Dipstick) Normal (Negative); Leukocyte 250 Leu/uL (Negative); Nitrite 2+ (Negative); Protein, Urine (Dipstick) Negative (Neg-Trace); RBC/HPF 0-3 HPF (0-3); Squamous Epithelial None Seen HPF (0-3); Urobilinogen Normal mg/dL (Less than 2); WBC/HPF 21-50 HPF (0-3)
[2019-02-09 09:08] LABS: Bacteria/HPF 1+ HPF (None Seen)
[2019-02-09 10:49] VITALS: BMI 32.6
[2019-02-09 11:23] LABS: Lactic Acid 2.5 mmol/L (0.5-2.2)
[2019-02-09] MEDS ORDERED: Insulin Regular 300 UNITS/3 ML VIAL SC PRN (15:08)
[2019-02-09] MEDS ORDERED: Dextrose 50% Abboject 50 ML SYRINGE IVP PRN (15:08)
[2019-02-09] MEDS ORDERED: Dextrose 5% in Water 1,000 ML IV PRN (15:08)
[2019-02-09] MEDS: Acetaminophen 500 MG TAB PO PRN (15:33)
[2019-02-09] MEDS: cefTRIAXone\\ROCEPHIN 2 GM in Sodium Chloride 0.9% 100 ML IVPB SCH (15:33)
[2019-02-09] MEDS: Sodium Chloride 0.45% 1,000 ML IV SCH (15:33)
[2019-02-09] MEDS: Finasteride 5 MG TAB PO SCH (20:56)
[2019-02-09] MEDS: Atorvastatin Calcium 40 MG TAB PO SCH (20:56)
--- NOTE | 2019-02-09 23:21 | CON ---
DATE OF CONSULTATION: 02/09/2019 CONSULTING: Dr. Temple. CONSULTED: Dr. Matta. REASON FOR CONSULTATION: Urinary tract infection, post-cystoscopy. HISTORY OF PRESENT ILLNESS: Mr. Romo is an 88-year-old white male, who currently sees me outpatient for BPH and urinary symptoms. Yesterday, he came to see me in the office, at which point he was confirmed to have severe bladder damage with incomplete bladder emptying, heavily trabeculated bladder with multiple cellules and severe bladder outlet obstruction secondary to BPH. We discussed TURP pending a cardiac clearance and had tentatively scheduled the surgery in March. After his cystoscopy, he did not have any problems in how he felt afterwards. He was able to urinate, although he does not empty his bladder completely. He went home and stated that he was having urinary frequency about every 2 hours, which continued into the night. Around 3:00 a.m., he began feeling poor with chills, malaise, dysuria, bladder pain, and pelvic discomfort. They called the ambulance and was taken to the ER this morning, at which time he was admitted for presumptive urosepsis. A Miller catheter was placed to drain the bladder and he has been started on antibiotics, currently Rocephin. It is unknown at this time if cultures were taken, although it is presumed that they have been taken. Currently, the patient states he is feeling better. He is not having as much bladder pain. His catheter is in and is not causing any significant problems for him. He denies any fevers. He otherwise states that he was doing okay. ALLERGIES: PLAVIX. HOME MEDICATIONS: 1. Oxybutynin. 2. . 3. Atorvastatin. 4. Digoxin. 5. Aspirin. 6. Metformin. 7. Omeprazole. 8. Metoprolol. 9. Finasteride. 10. Coenzyme Q10. 11. Rapaflo. PAST MEDICAL HISTORY: 1. CHF. 2. Type 2 diabetes. 3. Osteoarthritis. 4. History of myocardial infarction. PAST SURGICAL HISTORY: 1. Right knee surgery. 2. Laparoscopic cholecystectomy. 3. Heart stents. FAMILY HISTORY: Significant for CVA and cancer. SOCIAL HISTORY: The patient is a former smoker, but quit in 1982. He denies alcohol abuse or illicit drug use. REVIEW OF SYSTEMS: A 12-point review of systems is reviewed and negative other than what was commented on the HPI. Specifically, his bladder pain is significantly better and he is feeling better. PHYSICAL EXAMINATION: VITAL SIGNS: Temperature 97.8, pulse 64, respirations 18, blood pressure 106/51, and saturation 90% on room air. GENERAL: No apparent distress, communicating, and alert. Appears stated age, well nourished, well developed. HEENT: Normocephalic, atraumatic. Pupils are symmetric and round. Sclerae nonicteric. Trachea midline. CARDIOVASCULAR: Regular rate and rhythm. Normal S1 and S2. Symmetric pulses. CHEST: Bibasilar crackles. No increased work of breathing. Symmetric expansion of lungs. ABDOMEN: Soft, nontender, and nondistended. Positive bowel sounds. No organomegaly. No masses. No hernias. GENITOURINARY: Miller catheter in place with clear yellow urine. Penis is otherwise nonfocal. No blood in the urine. EXTREMITIES: 1+ edema bilaterally. No clubbing or cyanosis. MUSCULOSKELETAL: No obvious joint deformities or joint erythema noted. Full range of motion. NEUROLOGIC: Cranial nerves 2 through 12 grossly intact. No focal or sensory motor deficits identified. PSYCHIATRIC: Alert and oriented x3. Appropriate mood and affect. LABORATORY EVALUATION: The full set of labs are in the [employer] system, which I have reviewed. Of note, the patient's white blood cell count is 20.7 with a hemoglobin of 15.4, platelet count of 264. Creatinine is 1.15. Urinalysis demonstrates 2+ nitrites, 250 leukocyte esterase, 21 to 50 wbc's, and 1+ bacteria. ASSESSMENT AND PLAN: An 88-year-old white male with systemic inflammatory response syndrome criteria and possible sepsis secondary to urinary tract infection, which likely resulted from cystoscopy due to the patient's incomplete bladder emptying. I agree with Miller catheterization for maximal drainage at this time. I think it would be best for the patient to keep the catheter in until he has completed his antibiotic course and we can plan for a voiding trial sometime next week. I also discussed with the patient that given the recent infection and severe urinary symptoms, we may want to consider moving his surgery up instead of doing it in March and consider doing it earlier. I would still need a cardiac clearance from Dr. Dodd to ensure that he could undergo a surgery. Currently, I discussed with the patient moving his surgery up and he states that he would be willing to do it on March 02, which I can set him up for pending his cardiac clearance. I will make the necessary arrangements, but for the current time, we would recommend continuing his IV antibiotics until culture results and then sending him home on culture specific antibiotics for 10 to 14 days for presumed sepsis, after which time we can consider a void trial sometime in the latter part of next week. If he is unable to void, we will keep the catheter in until his surgery, after which time he can undergo void trial then. I will sign off at the current time as there is nothing further that I need to do at this time, but I will be happy and available to answer any further questions, if there are any other issues. Job ID: [id number]
--- NOTE | 2019-02-10 01:41 | HP ---
CHIEF COMPLAINT: Altered mental status, fever, nausea, and vomiting. HISTORY OF PRESENT ILLNESS: Mr. Romo is an 88-year-old male with past medical history of hypertension, diabetes, recent urological procedure, came because of change in sudden onset of altered mental status. The patient became kind of unresponsive, lethargic at home. The patient had a cystoscopy done yesterday and fever, chills, vomited once. He also has dysuria and urinary frequency started overnight. The patient was clearly confused according to the family, so the patient came to the hospital. He was found to be in altered mental status, found to have urosepsis. The patient received Zosyn and vancomycin and is being admitted for further evaluation and management. Currently, the patient is more awake and alert. PAST MEDICAL HISTORY: 1. Hypertension. 2. Coronary artery disease, status post VT. 3. History of severe reflux disease. 4. BPH. 5. Diabetes mellitus. 6. Rodriguez's esophagus. 7. Hyperlipidemia. PAST SURGICAL HISTORY: Status post left knee surgery, status post cholecystectomy, and status post stent placement. CURRENT MEDICATIONS: The patient is on; 1. Tylenol p.r.n. 2. Zetia 10 mg daily. 3. Aspirin 81 mg daily. 4. Metformin 500 mg b.i.d. 5. Omeprazole 40 mg daily. 6. Metoprolol succinate 25 mg daily. 7. Digoxin 250 mcg daily. 8. Finasteride 5 mg daily. 9. Atorvastatin 80 mg daily. 10. Coenzyme Q10 daily. ALLERGIES: NKDA. FAMILY HISTORY: Nothing contributory. SOCIAL HISTORY: Lives with family. No history of smoking and drinks occasionally. REVIEW OF SYSTEMS: CARDIOVASCULAR: No chest pain or shortness of breath. RESPIRATORY: Has fever 101. No cough. GASTROINTESTINAL: Has nausea, vomiting. CENTRAL NERVOUS SYSTEM: No headache. Feels dizzy. PHYSICAL EXAMINATION: GENERAL: The patient is alert, awake, and oriented x2. VITAL SIGNS: Temperature 101.1, respirations 20, blood pressure 130/50, pulse 86. HEENT: Head is normocephalic, atraumatic. Pupils are equal and reactive. Nasopharynx is pale and dry. Hard and soft palate, no lesions. SKIN: Turgor decreased. NECK: Supple. No JVD. LUNGS: Bilateral air entry with no rales, no rhonchi. HEART: S1 and S2, regular. ABDOMEN: Soft, no tender, no distention. Normal bowel sounds present. RECTAL: Deferred. CENTRAL NERVOUS SYSTEM: No focal deficit. LABORATORY DATA: CBC shows WBC 20, hemoglobin 15, hematocrit 45, platelets 264. Metabolic panel; sodium 135, potassium 4.2, chloride 103, CO2 of 20, BUN 20, creatinine 1.1, glucose 168. Lactic acid level 3.6. Urinalysis; wbc 21 to 50, bacteria 1+. Chest x-ray negative. EKG shows expiratory junctional rhythm, no acute ST-T changes seen. ASSESSMENT: 1. Possible urosepsis. 2. Fever and leukocytosis, rule out sepsis. 3. Metabolic encephalopathy. 4. Hypertension. 5. Coronary artery disease, status post stents. 6. Diabetes mellitus. 7. Acute kidney injury. 8. Benign prostatic hypertrophy. PLAN: 1. Vital signs q.4 hours. 2. Activities as tolerated. 3. Allergies, NKDA. 4. IV fluids, half normal at 70 mL/h. 5. Rocephin 2 g IV piggyback daily. 6. Continue home medications. 7. Accu-Chek before meals and at bedtime. 8. Sliding scale mild with regular insulin. 9. CBC, basic metabolic panel in the morning. Job ID: [id number]
[2019-02-10] MEDS: Sodium Chloride 0.45% 1,000 ML IV SCH ×2 (05:17→06:58)
[2019-02-10 05:35] LABS: #Basophils 0.1 thou/uL (0.0-0.2); #Eosinphils 0.1 thou/uL (0.0-0.7); #Lymphocytes 1.5 thou/uL (1.20-3.40); #Monocytes 1.2 thou/uL (0.11-0.59); #Neutrophils 17.1 thou/uL (1.40-6.50); %Basophils 0.4 % (0.0-1.0); %Eosinophils 0.4 % (0.0-10.0); %Lymphocytes 7.5 % (21.0-51.0); %Monocytes 6.1 % (0.0-10.0); %Neutrophils 85.5 % (42.0-75.0); Hemoglobin 13.3 g/dL (14.0-18.0); Mean Corpuscular HGB CONC 33.8 g/dL (32.0-36.0); Mean Corpuscular Hemoglobin 34.1 pg (27.0-31.0); Mean Platelet Volume 6.6 fL (7.4-10.4); Platelet Count 212 thou/uL (130-400); RBC Distribution Width 12.2 % (11.5-14.5); Red Blood Cell (RBC) Count 3.89 mill/uL (4.70-6.10)
[2019-02-10 05:51] LABS: Anion Gap 9 mmol/L (10-20); BUN (Urea Nitrogen) 18 mg/dL (8.4-25.7); Calc. Creatinine Clearance 74 mL/min (70-130); Calcium 8.5 mg/dL (7.8-10.44); Carbon Dioxide 26 mmol/L (23-31); Chloride 104 mmol/L (98-107); Estimated GFR-MDRD 69; Glucose 141 mg/dL (83-110); Potassium 4.2 mmol/L (3.5-5.1); Sodium 135 mmol/L (136-145)
[2019-02-10] MEDS: Silodosin 8 MG CAP PO SCH (08:22)
[2019-02-10] MEDS: Digoxin 0.25 MG TAB PO SCH (09:08)
[2019-02-10] MEDS: Ezetimibe 10 MG TAB PO SCH (09:09)
[2019-02-10] MEDS: Aspirin Chewable 81 MG TAB PO SCH (09:09)
[2019-02-10] MEDS: Ubidecarenone 50 MG CAP PO SCH (09:09)
[2019-02-10] MEDS ORDERED: Prevnar 13-Val Conj/PF 0.5 ML SYRINGE IM ONE (11:00)
--- NOTE | 2019-02-10 15:05 | PQF ---
CLINICAL DOCUMENTATION IMPROVEMENT CLARIFICATION FORM: ICD-10 Updated PLEASE DO AN ADDENDUM TO THE PROGRESS NOTE WITH ANY DOCUMENTATION UPDATES OR ADDITIONS AND CARRY THROUGH TO DC SUMMARY. THANK YOU. DATE: 02/10/19 ATTN: DR. HOLLAND Please exercise your independent, professional judgment in responding to the clarification form. Clinical indicators are provided on the bottom of this form for your review Please check appropriate box(s) to clarify if the following diagnosis has been ruled in or ruled out: "SEPSIS" [ ] Ruled in diagnosis [ ] Continue to treat [ ] Resolved [ y ] Ruled out diagnosis [ ] Other diagnosis [ Unable to determine In addition, please specify: Present on Admission (POA): [ y ] Yes [ ] No [ ] Unable to determine For continuity of documentation, please document condition throughout progress notes and discharge summary. Thank You. CLINICAL INDICATORS - SIGNS / SYMPTOMS / LABS ER NOTE (02/09): "SEVERE SEPSIS" TEMP 101.6 RR 30 WBC 02/09: 20.7 LACTIC ACID 02/09: 3.6 H&P10/: "FOUND TO HAVE UROSEPSIS" "FEVER AND LEUKOCYTOSIS R/O SEPSIS" RISKS: BLAIR (H&P 02/10) UA (02/09)- WBC 21-50 / BACTERIA +1 TREATMENT: IV VANCOMYCIN (ER 02/09) IV ZOSYN (ER 02/09) IV FLUIDS (ER 02/09-PRESENT) URINE AND BLOOD CULTURES (02/09) IV ROCEPHIN (02/09--PRESENT) (This form is maintained as a part of the permanent medical record) 2014 [employer]. All Rights Reserved LINDSEY [email or web address] Office: [phone] PAWAN
[2019-02-10] MEDS: cefTRIAXone\\ROCEPHIN 2 GM in Sodium Chloride 0.9% 100 ML IVPB SCH (15:30)
--- NOTE | 2019-02-10 15:56 | CT ---
CT ABDOMEN NONCONTRAST CT PELVIS NONCONTRAST: (Urolithiasis protocol) DATE: 02/10/2019 HISTORY: 88-year-old male with urosepsis, cystitis, and hematuria. COMPARISON: 08/04/2017 TECHNIQUE: IV injection of iodinated contrast media: None Oral contrast media: None FINDINGS: Other than for urolithiasis, the lack of IV and oral contrast limits the evaluation. The previously demonstrated postoperative fluid collection in the gallbladder fossa has been removed. Cholecystectomy clips are again noted. Diffusely fatty liver. No renal, ureteral, or bladder calculus. Enlarged prostate gland superiorly displaces bladder base. Diffuse mural thickening of the urinary bladder is a new finding. Miller catheter within urinary bladder. Despite this, the urinary bladder is not empty. No hydronephrosis. Atherosclerosis throughout abdominal aorta without aneurysm. No colonic diverticulitis. No small bowel dilation. No splenomegaly. Normal appendix. No adrenal nodule. Within limitations of noncontrast scan, no abnormality identified involving kidneys and pancr eas. No ascites or pneumoperitoneum. No abscess. No pleural effusion. No consolidation at lung bases. Nonspecific interstitial densities at lung bases. IMPRESSION: 1) evidence for benign prostatic hyperplasia (BPH). (Disclaimer: This does not necessarily exclude th e possibility of prostate cancer.) 2) Miller catheter within partially filled urinary bladder. 3) nonspecific finding of diffuse mural thickening of the urinary bladder. This could be chronic or a cute. 4) no urolithiasis or obstructive uropathy. 5) hepatic steatosis.
--- NOTE | 2019-02-10 19:30 | CON ---
DATE OF CONSULTATION: 02/10/2019 REASON FOR CONSULTATION: Sepsis. HISTORY OF PRESENT ILLNESS: An 88-year-old with history of type 2 diabetes, BPH, prior [place] with stents, and Rodriguez esophagus, who has had a cystoscopy in preparation for procedure to manage his BPH. He is still symptomatic despite conservative management. The patient underwent the procedure recently and developed symptoms associated with altered mental status, lethargy, chills, consistent with infectious complications following the procedure. The patient was admitted and started on broad-spectrum antimicrobial coverage and is feeling much better. A Miller catheter was inserted in the emergency room. Currently, he is awake, alert, and oriented. No headaches, visual symptoms, sore throat, odynophagia, or dysphagia. No cough or sputum production. No chest pain. No back pain. No abdominal pain. No diarrhea. No bleeding. No joint symptoms. MEDICAL HISTORY: Hypertension, coronary artery disease, [place] x1, stents, BPH, type 2 diabetes, Rodriguez esophagus, hyperlipidemia, episode of pancreatitis, acute cholecystitis which required resection. He had a percutaneous aspirate of a small collection, which grew Clostridium perfringens in beginning of 2018. PAST SURGICAL HISTORY: Left knee replacement, cholecystectomy, stent. ALLERGIES: NONE. FAMILY HISTORY: Noncontributory. SOCIAL HISTORY: Never smoker. Retired. Lives in [place] with his daughter. CURRENT MEDICATIONS: 1. Aspirin. 2. Ceftriaxone. 3. Finasteride. 4. Rapaflo. 5. Metoprolol. 6. Protonix. PHYSICAL EXAMINATION: VITAL SIGNS: T-max 99.7, currently 98.1; blood pressure 120/50; pulse 61; respirations 18; O2 saturation 99%. SKIN: The patient has a peripheral IV access and a Miller catheter. No lymphadenopathy. HEENT: Ocular movements are conjugate. Nasal passages are patent. Oral cavity normal. NECK: Supple. No jugular venous distention. LUNGS: Symmetric. Clear breath sounds. HEART: S1 and S2. Regular rate. No murmurs. No S3. No S4. ABDOMEN: Soft, not distended or tender. No ascites. No bladder distention. EXTREMITIES: No edema. Pulses 1+ in dorsalis pedis. Moves extremities equally. Cognitive function appears to be intact. LABORATORY DATA: White cell count is down from 20.7 to 20, hemoglobin 13, platelets 212 with 85% neutrophils. Creatinine 1.02. Bilirubin 0.4, AST 38, ALT 26, alkaline phosphatase 110, albumin 4.0, globulin 2.4. Lipase 46. IMAGING STUDIES: Chest x-ray without any infiltrates. ASSESSMENT: Type 2 diabetes, coronary artery disease, prior episode of cholecystitis with pancreatitis, and BPH which now seems to have failed conservative management and now inflammatory process following cystoscopy. DISCUSSION: The differential diagnosis includes invasive urinary tract infection, probably had transient bacteremia with the organisms retrieved from the urine culture, which is the E coli. Susceptibilities are pending at this time. There is clear-cut clinical improvement, so it is not likely to represent an ESBL phenotype organism. Normally, one would proceed with an imaging study to verify that there is no hydronephrosis. We will go ahead and order a CT stone protocol. He has not had an imaging study done since last year. If that is clear, then could hopefully eventually transition him to oral antimicrobial therapy probably quinolone if susceptibility profile is consistent with treating with quinolone agent. This would continue for at least another 2 weeks, the patient has a procedure pending by Dr. Matta, I think in the upcoming week and will have to continue treatment with antimicrobials. Risks of antimicrobial therapy including C diff colitis, systemic allergic reactions were discussed. Voiding trial to be performed by Dr. Matta after his planned procedure. Job ID: [id number]
[2019-02-10] MEDS: Atorvastatin Calcium 40 MG TAB PO SCH (19:33)
[2019-02-10] MEDS: Finasteride 5 MG TAB PO SCH (19:33)
[2019-02-10] MEDS: Acetaminophen 500 MG TAB PO PRN (20:53)
[2019-02-11 05:58] LABS: #Eosinphils 0.1 thou/uL (0.0-0.7); #Lymphocytes 1.6 thou/uL (1.20-3.40); #Monocytes 0.7 thou/uL (0.11-0.59); #Neutrophils 10.8 thou/uL (1.40-6.50); %Eosinophils 0.9 % (0.0-10.0); %Monocytes 5.1 % (0.0-10.0); %Neutrophils 81.9 % (42.0-75.0); Hemoglobin 13.2 g/dL (14.0-18.0); Mean Corpuscular HGB CONC 34.6 g/dL (32.0-36.0); Mean Corpuscular Hemoglobin 34.9 pg (27.0-31.0); Mean Platelet Volume 6.6 fL (7.4-10.4); Platelet Count 211 thou/uL (130-400); Red Blood Cell (RBC) Count 3.78 mill/uL (4.70-6.10); White Blood Cell (WBC) Count 13.2 thou/uL (4.8-10.8)
[2019-02-11 06:19] LABS: Anion Gap 12 mmol/L (10-20); BUN (Urea Nitrogen) 14 mg/dL (8.4-25.7); Calc. Creatinine Clearance 69 mL/min (70-130); Calcium 8.8 mg/dL (7.8-10.44); Carbon Dioxide 26 mmol/L (23-31); Chloride 105 mmol/L (98-107); Estimated GFR-MDRD 64; Glucose 151 mg/dL (83-110); Potassium 4.3 mmol/L (3.5-5.1); Sodium 139 mmol/L (136-145)
[2019-02-11] MEDS: Ubidecarenone 50 MG CAP PO SCH (08:50)
[2019-02-11] MEDS: Silodosin 8 MG CAP PO SCH (08:51)
[2019-02-11] MEDS: Ezetimibe 10 MG TAB PO SCH (08:51)
[2019-02-11] MEDS: Aspirin Chewable 81 MG TAB PO SCH (08:51)
[2019-02-11] MEDS: Digoxin 0.25 MG TAB PO SCH (08:55)
[2019-02-11] MEDS: cefTRIAXone\\ROCEPHIN 2 GM in Sodium Chloride 0.9% 100 ML IVPB SCH (15:02)
--- NOTE | 2019-02-11 15:48 | EKG ---
Test Reason : Blood Pressure : / mmHG Vent. Rate : 080 BPM Atrial Rate : 080 BPM P-R Int : 000 ms QRS Dur : 086 ms QT Int : 362 ms P-R-T Axes : 000 -59 031 degrees QTc Int : 417 ms Accelerated Junctional rhythm Left axis deviation Minimal voltage criteria for LVH, may be normal variant Abnormal ECG Confirmed by JUAQUIN ROSARIO ([id number]), proposal editor NADEEM LEWIS ([id number]) on 02/11/2019 3:47:48 PM Referred By: Confirmed By:JUAQUIN ROSARIO
[2019-02-11] MEDS: Atorvastatin Calcium 40 MG TAB PO SCH (20:00)
[2019-02-11] MEDS: Finasteride 5 MG TAB PO SCH (20:01)
[2019-02-12] MEDS: Aspirin Chewable 81 MG TAB PO SCH (09:10)
[2019-02-12] MEDS: Digoxin 0.25 MG TAB PO SCH ×2 (09:10→11:16)
[2019-02-12] MEDS: Ezetimibe 10 MG TAB PO SCH (09:10)
[2019-02-12] MEDS: Ubidecarenone 50 MG CAP PO SCH (09:10)
[2019-02-12] MEDS: Silodosin 8 MG CAP PO SCH (09:11)
[2019-02-12] MEDS ORDERED: cefTRIAXone\\ROCEPHIN 2 GM in Sodium Chloride 0.9% 100 ML IVPB SCH (10:00)
[2019-02-12 16:47] VITALS: BP 122/60; TEMP 97.8
== END 2019-02-12 17:07 | disposition home or self-care (01) | DRG 698 ==
LOC: ERS 06:35 → T4-B 09:59
PROVIDERS: ADMIT Internal Medicine; ATTEND Internal Medicine
DX: N99.89 Other postprocedural complications and disorders of genitourinary system (principal); G93.41 Metabolic encephalopathy; N17.9 Acute kidney failure, unspecified; R41.82 Altered mental status, unspecified; I10 Essential (primary) hypertension; I25.10 Atherosclerotic heart disease of native coronary artery without angina pectoris; E11.9 Type 2 diabetes mellitus without complications; D72.829 Elevated white blood cell count, unspecified; K21.9 Gastro-esophageal reflux disease without esophagitis; N40.0 Benign prostatic hyperplasia without lower urinary tract symptoms; E78.5 Hyperlipidemia, unspecified; Z90.49 Acquired absence of other specified parts of digestive tract; Z95.5 Presence of coronary angioplasty implant and graft; Z79.82 Long term (current) use of aspirin; Z79.84 Long term (current) use of oral hypoglycemic drugs; I25.2 Old myocardial infarction
CPT/HCPCS: 36415; 36416; 51702; 71045; 74176; 80048; 80053; 81003; 81015; 83605; 83690; 85025; 87040; 87077; 87086; 87186; 87804; 93005; 96361; 96365; 96367; J0696; J1815; J2543; J3370; J3490

== ENCOUNTER 2019-02-12 18:13 | Emergency (ER) | payer MEDICARE | END 2019-02-12 18:39 | disposition left against medical advice (07) | LOC: ERS 18:13 | DX: Z53.21 Procedure and treatment not carried out due to patient leaving prior to being seen by health care provider (principal) ==

== ENCOUNTER 2019-02-12 19:01 | Emergency (ER) | payer MEDICARE ==
[2019-02-12 20:56] LABS: Bilirubin Negative (Negative); Blood, Urine Large (Negative); Glucose, Urine (Dipstick) Negative (Negative); Leukocyte Moderate (Negative); Nitrite Negative (Negative); Protein, Urine (Dipstick) 100 mg/dL (Neg-Trace); Urobilinogen 0.2 mg/dL (Less than 2)
[2019-02-12 20:57] LABS: Clarity Hazy (Clear)
[2019-02-12 21:01] LABS: RBC/HPF Greater than 50 HPF (0-3); Squamous Epithelial 0-3 HPF (0-3)
[2019-02-12 21:02] LABS: Bacteria/HPF Rare-Few HPF (None Seen)
== END 2019-02-12 21:58 | disposition home or self-care (01) ==
LOC: SCSER 19:01
DX: T83.031A Leakage of indwelling urethral catheter, initial encounter (principal); T83.511A Infection and inflammatory reaction due to indwelling urethral catheter, initial encounter; E11.9 Type 2 diabetes mellitus without complications; I25.2 Old myocardial infarction; E78.5 Hyperlipidemia, unspecified; Z79.82 Long term (current) use of aspirin; Z79.84 Long term (current) use of oral hypoglycemic drugs; Z79.899 Other long term (current) drug therapy
CPT/HCPCS: 81003; 81015; 87086

== ENCOUNTER 2019-02-22 09:37 | Outpatient (CLI) | payer MEDICARE ==
[2019-02-22 12:19] LABS: Bilirubin Negative (Negative); Blood, Urine Negative (Negative); Glucose, Urine (Dipstick) Negative (Negative); Leukocyte Negative (Negative); Nitrite Negative (Negative); Protein, Urine (Dipstick) Negative (Neg-Trace); Urobilinogen 0.2 mg/dL (Less than 2)
[2019-02-22 12:22] LABS: Hemoglobin 14.4 g/dL (14.0-18.0); Mean Corpuscular Hemoglobin 33.6 pg (27.0-31.0); Mean Platelet Volume 6.8 fL (7.4-10.4); Platelet Count 250 thou/uL (130-400); Red Blood Cell (RBC) Count 4.29 mill/uL (4.70-6.10); White Blood Cell (WBC) Count 12.7 thou/uL (4.8-10.8)
[2019-02-22 12:26] LABS: PTT 29.1 SEC (22.9-36.1); Prothrombin Time 13.2 SEC (12.0-14.7)
[2019-02-22 12:31] LABS: Clarity Clear (Clear)
[2019-02-22 12:33] LABS: RBC/HPF 0-3 HPF (0-3); Squamous Epithelial 0-3 HPF (0-3); WBC/HPF 0-3 HPF (0-3)
[2019-02-22 12:37] LABS: Anion Gap 13 mmol/L (10-20); BUN (Urea Nitrogen) 15 mg/dL (8.4-25.7); Calc. Creatinine Clearance 0 mL/min (70-130); Calcium 9.3 mg/dL (7.8-10.44); Carbon Dioxide 22 mmol/L (23-31); Chloride 108 mmol/L (98-107); Estimated GFR-MDRD 68; Glucose 84 mg/dL (83-110); Potassium 4.3 mmol/L (3.5-5.1); Sodium 139 mmol/L (136-145)
[2019-02-22 12:42] LABS: Bacteria/HPF 1+ HPF (None Seen)
--- NOTE | 2019-02-22 17:02 | EKG ---
Test Reason : Blood Pressure : / mmHG Vent. Rate : 061 BPM Atrial Rate : 061 BPM P-R Int : 204 ms QRS Dur : 100 ms QT Int : 414 ms P-R-T Axes : 049 -28 000 degrees QTc Int : 416 ms Normal sinus rhythm Voltage criteria for left ventricular hypertrophy Cannot rule out Septal infarct , age undetermined Abnormal ECG Confirmed by MAYRA MESSINA ([id number]) on 02/22/2019 5:01:43 PM Referred By: DANICA Confirmed By:MAYRA MESSINA
== END 2019-02-22 09:38 | disposition home or self-care (01) ==
LOC: LABBT 09:37
PROVIDERS: ATTEND Urology
DX: Z01.818 Encounter for other preprocedural examination (principal); N40.1 Benign prostatic hyperplasia with lower urinary tract symptoms; R35.0 Frequency of micturition; R33.9 Retention of urine, unspecified; I25.5 Ischemic cardiomyopathy; E11.59 Type 2 diabetes mellitus with other circulatory complications
CPT/HCPCS: 80048; 81001; 85027; 85610; 85730; 87086; 93005; 93010

== ENCOUNTER 2019-03-02 07:13 | Observation (INO) | payer MEDICARE ==
[2019-02-22 10:16] VITALS: BMI 32.5
[2019-03-02] MEDS ORDERED: Levofloxacin 500 mg/D5W 100 ml Premix Bag ONE (07:40)
[2019-03-02] MEDS ORDERED: B & O ONE (09:28)
[2019-03-02] MEDS ORDERED: Fentanyl 100 MCG/2 ML VIAL ONE ×2 (09:30→12:21)
[2019-03-02] MEDS ORDERED: Ondansetron PF 4 MG/2 ML Vial ONE (10:30)
[2019-03-02] MEDS ORDERED: PROPOFOL 200 MG/20 ML VIAL ONE (10:30)
[2019-03-02] MEDS ORDERED: Lidocaine 1% PF 5 ML VIAL ONE (10:30)
[2019-03-02] MEDS ORDERED: Ondansetron HCl/PF 4 MG/2 ML Vial IVP PRN (11:13)
[2019-03-02] MEDS ORDERED: Promethazine HCl 25 MG/ML VIAL IM PRN (11:13)
[2019-03-02] MEDS ORDERED: Promethazine HCl 25 MG/ML VIAL SLOW IVP PRN (11:13)
[2019-03-02] MEDS ORDERED: Ondansetron PF 4 MG/2 ML Vial IVP PRN (11:23)
[2019-03-02] MEDS ORDERED: diphenhydrAMINE 25 MG CAP PO PRN (11:23)
[2019-03-02] MEDS ORDERED: Mag-Al 1200 mg/1200 mg/30 ML UDCUP PO PRN (11:23)
[2019-03-02] MEDS ORDERED: HYDROcodone/Acetaminophen 5/325 mg Tablet PO PRN (11:23)
[2019-03-02] MEDS ORDERED: Bisacodyl 10 MG SUPP PR PRN (11:23)
[2019-03-02] MEDS ORDERED: Phenazopyridine HCl 97.5 MG TABLET PO PRN (11:23)
[2019-03-02] MEDS ORDERED: Acetaminophen 500 MG TAB PO PRN (11:23)
[2019-03-02] MEDS ORDERED: Oxybutynin 5 MG TAB PO PRN (11:23)
[2019-03-02] MEDS ORDERED: Hyoscyamine Sulfate SL 0.125 mg Tablet SL PRN (11:23)
[2019-03-02] MEDS ORDERED: Morphine 2 MG/ML SYRINGE SLOW IVP PRN (11:23)
[2019-03-02] MEDS ORDERED: hydrALAZINE 20 MG/ML VIAL SLOW IVP PRN (11:23)
--- NOTE | 2019-03-02 11:54 | OP ---
DATE OF PROCEDURE: 03/02/2019 SERVICE: Urology PREOPERATIVE DIAGNOSIS: BPH. POSTOPERATIVE DIAGNOSIS: BPH. PROCEDURE PERFORMED: Transurethral vaporization of the prostate. INDICATIONS FOR PROCEDURE: Mr. Romo is an 88-year-old white male with BPH and lower urinary symptoms. He has had previous urinary retention with infection and has significant voiding difficulties. He has a very large prostate on cystoscopy that is too large for UroLift. We discussed treatment with TUVP with risks and benefits discussed and he has agreed to proceed forward. DESCRIPTION OF PROCEDURE: After identification of armband and verification of consent, the patient was brought back to the operating room. He underwent general anesthesia with LMA. He was then placed in dorsal lithotomy position and prepped and draped in usual sterile fashion. After appropriate time-out, a 26-Palestinian resectoscope sheath with visual obturator was passed through the urethra, up through the prostate into the bladder. The bladder was heavily trabeculated with cellules and diverticula as previously seen on cystoscopy. Both ureters were identified close to, but not on to the prostate. The visual obturator was switched out for the bipolar button and vaporization was carried out from the bladder neck to the verumontanum circumferentially until we were close to, but not actually encountering the capsule of the prostate. Vaporization was carried out circumferentially until the prostate was wide open. The bladder neck relaxing incisions were made at 5 o'clock and 7 o'clock using the bipolar button. Upon completion, the prostate was wide open. All the adenomatous prostate tissue was smoothed out to be completely wide open. Both ureters were identified in orthotopic location at the end of the case. Meticulous hemostasis was performed on all the prostate and once completely dried, the resectoscope was removed. A 22-Palestinian 3-way Miller catheter was placed into the patient's bladder and CBI initiated. A B and O suppository placed into the rectum, 30 mL of sterile water was then instilled into the balloon of the Miller catheter. The patient was then taken out of positioning, had a StatLock affixed to his catheter, was awakened and taken to PACU for recovery in stable condition. COMPLICATIONS: None. ESTIMATED BLOOD LOSS: Minimal. RETAINED TUBES AND DRAINS: A 22-Palestinian 3-way Miller catheter with 30 mL of sterile water in the balloon. SPECIMENS: None. DISPOSITION: The patient will be kept in the hospital overnight for CBI. We will plan a void trial in the morning. If he fails, he will keep this catheter in and go home with a catheter. We will plan a void trial later. His followup will be handled on an outpatient basis. Job ID: [id number]
[2019-03-02] MEDS: Docusate 100 MG CAP PO SCH (20:26)
[2019-03-02] MEDS ORDERED: Atorvastatin Calcium 40 MG TAB PO SCH (21:00)
[2019-03-03 06:06] LABS: #Eosinphils 0.1 thou/uL (0.0-0.7); #Lymphocytes 1.6 thou/uL (1.20-3.40); #Monocytes 0.7 thou/uL (0.11-0.59); #Neutrophils 6.1 thou/uL (1.40-6.50); %Basophils 0.3 % (0.0-1.0); %Eosinophils 1.6 % (0.0-10.0); %Lymphocytes 18.7 % (21.0-51.0); %Monocytes 7.9 % (0.0-10.0); %Neutrophils 71.6 % (42.0-75.0); Hemoglobin 12.8 g/dL (14.0-18.0); Mean Corpuscular Hemoglobin 33.9 pg (27.0-31.0); Mean Corpuscular Volume 99.6 fL (78.0-98.0); Mean Platelet Volume 6.5 fL (7.4-10.4); Platelet Count 226 thou/uL (130-400); White Blood Cell (WBC) Count 8.5 thou/uL (4.8-10.8)
[2019-03-03 06:22] LABS: Anion Gap 13 mmol/L (10-20); BUN (Urea Nitrogen) 11 mg/dL (8.4-25.7); Calc. Creatinine Clearance 79 mL/min (70-130); Calcium 8.7 mg/dL (7.8-10.44); Carbon Dioxide 26 mmol/L (23-31); Chloride 104 mmol/L (98-107); Estimated GFR-MDRD 75; Glucose 119 mg/dL (83-110); Potassium 4.2 mmol/L (3.5-5.1); Sodium 139 mmol/L (136-145)
[2019-03-03] MEDS ORDERED: metFORMIN 500 MG TAB PO SCH (08:00)
[2019-03-03] MEDS: Docusate 100 MG CAP PO SCH (08:55)
[2019-03-03] MEDS ORDERED: Digoxin 0.25 MG TAB PO SCH (09:00)
[2019-03-03] MEDS ORDERED: Ubidecarenone 50 MG CAP PO SCH (09:00)
[2019-03-03] MEDS ORDERED: Ezetimibe 10 MG TAB PO SCH (09:00)
[2019-03-03 16:07] VITALS: BP 129/64; TEMP 98.2
--- NOTE | 2019-03-03 17:20 | PRG ---
DATE OF SERVICE: 03/03/2019 SUBJECTIVE: The patient states he is feeling fine. No pain. No bladder spasms. Did well overnight. No chest pain or shortness of breath. OBJECTIVE: VITAL SIGNS: Temperature 98.2, pulse 61, respirations 14, blood pressure 129/64, and saturations 92% on room air. GENERAL: In no apparent distress. Communicative and alert. CARDIOVASCULAR: Regular rate and rhythm. ABDOMEN: Soft, nontender, and nondistended. CHEST: No increased work of breathing. : Miller catheter is in place, draining light pink urine. CBI is off. Catheter was discontinued and removed. EXTREMITIES: No clubbing, cyanosis, or edema. LABORATORY EVALUATION: Full set of labs is in the [employer] system, which I have reviewed. Of note, white count is 8.5, hemoglobin 12.8. Creatinine 0.95. ASSESSMENT AND PLAN: An 88-year-old white male with benign prostatic hyperplasia and incomplete bladder emptying and obstruction, status post transurethral electrovaporization of the prostate, postop day #1. His catheter will be removed. We will plan a void trial so long as he is able to void adequately and keep his bladder mostly empty. He can be discharged home and will follow up with me on an outpatient basis. Job ID: [id number]
--- NOTE | 2019-03-04 03:16 | DIS ---
DATE OF ADMISSION: 03/02/2019 DATE OF DISCHARGE: 03/03/2019 ADMITTING DIAGNOSIS: BPH. DISCHARGE DIAGNOSIS: BPH. PROCEDURE PERFORMED ON PATIENT: Transurethral vaporization of prostate. BRIEF HISTORY: Mr. Romo is an 88-year-old white male with history of BPH and retention with UTI. We discussed aggressive treatment with TUVP to avoid repeat retention and UTIs. Full H and P can be found in the scanned portion of the [employer] system. HOSPITAL COURSE: After surgery (please see operative note for details), patient was admitted to the hospital for postoperative recovery. He was kept on CBI overnight with a 22-Malagasy Miller catheter. CBI was stopped in the morning and his urine was not very bloody. His catheter was removed. The patient was able to void three separate times with decreasing hematuria. A bladder scan was done demonstrating about 100 mL approximately 30 to 45 minutes after he voided. There was no evidence of retention. I went over his discharge instructions and the patient was discharged home without further event. DISPOSITION: Discharged to home. DISCHARGE CONDITION: Good. DISCHARGE MEDICATIONS: Include he will remain on his home medications, except his aspirin which I have recommended he stop until the hematuria recedes. He does not need to take his Rapaflo or finasteride anymore. He was given a prescription for tramadol, Colace, oxybutynin, and Pyridium. I will see him back in the office in approximately 1 to 2 weeks for postop check. Job ID: [id number]
== END 2019-03-03 17:41 | disposition home or self-care (01) ==
LOC: SDC 07:13 → SURG B 11:23
PROVIDERS: ADMIT Urology; ATTEND Urology
PROC: 0V507ZZ Destruction of Prostate, Via Natural or Artificial Opening (ICD-10-PCS; principal; 2019-03-02)
DX: N40.1 Benign prostatic hyperplasia with lower urinary tract symptoms (principal); R39.14 Feeling of incomplete bladder emptying; E11.9 Type 2 diabetes mellitus without complications; E78.5 Hyperlipidemia, unspecified; I50.9 Heart failure, unspecified; K21.9 Gastro-esophageal reflux disease without esophagitis; M19.90 Unspecified osteoarthritis, unspecified site; Z79.84 Long term (current) use of oral hypoglycemic drugs; Z79.899 Other long term (current) drug therapy; Z87.891 Personal history of nicotine dependence
CPT/HCPCS: 52648; 80048; 82962; 85025; 96374; G0378 ×2; 36415; 36416; J1956; J2001; J2405; J2704; J3010

== ENCOUNTER 2019-05-18 11:46 | Outpatient (CLI) | payer MEDICARE ==
--- NOTE | 2019-05-18 13:13 | RAD ---
TWO VIEWS CHEST: COMPARISON: 06/10/2013. HISTORY: Preoperative radiograph. FINDINGS: Two views of the chest show normal sized cardiomediastinal silhouette. There is no evidence of consol idation, mass, or pleural effusion. The bones are unremarkable. IMPRESSION: No evidence of acute cardiopulmonary disease. POS: CET
== END 2019-05-18 11:47 | disposition home or self-care (01) ==
LOC: BICRAD 11:46
PROVIDERS: ATTEND Internal Medicine
DX: Z01.818 Encounter for other preprocedural examination (principal)
CPT/HCPCS: 71046

== ENCOUNTER 2019-06-01 05:49 | Outpatient (CLI) | payer MEDICARE ==
[2019-06-01 13:43] LABS: #Eosinphils 0.1 thou/uL (0.0-0.7); #Lymphocytes 1.6 thou/uL (1.20-3.40); #Monocytes 0.6 thou/uL (0.11-0.59); %Basophils 0.3 % (0.0-1.0); %Eosinophils 1.6 % (0.0-10.0); %Lymphocytes 16.8 % (21.0-51.0); %Monocytes 6.2 % (0.0-10.0); %Neutrophils 75.1 % (42.0-75.0); Hemoglobin 13.9 g/dL (14.0-18.0); Mean Corpuscular Hemoglobin 32.2 pg (27.0-31.0); Mean Corpuscular Volume 97.6 fL (78.0-98.0); Mean Platelet Volume 6.9 fL (7.4-10.4); Platelet Count 271 thou/uL (130-400); RBC Distribution Width 12.1 % (11.5-14.5); Red Blood Cell (RBC) Count 4.31 mill/uL (4.70-6.10); White Blood Cell (WBC) Count 9.3 thou/uL (4.8-10.8)
[2019-06-01 13:50] LABS: INR-International Normal Ratio 1.1; Prothrombin Time 13.7 SEC (12.0-14.7)
[2019-06-01 13:51] LABS: Bacteria/HPF Rare-Few HPF (None Seen); Bilirubin Negative (Negative); Blood, Urine Negative (Negative); Clarity Clear (Clear); Glucose, Urine (Dipstick) Normal (Negative); Leukocyte 250 Leu/uL (Negative); Nitrite Negative (Negative); Protein, Urine (Dipstick) Negative (Neg-Trace); Squamous Epithelial 0-3 HPF (0-3); Urobilinogen Normal mg/dL (Less than 2); WBC/HPF 21-50 HPF (0-3)
[2019-06-01 14:05] LABS: Anion Gap 12 mmol/L (10-20); BUN (Urea Nitrogen) 12 mg/dL (8.4-25.7); Calc. Creatinine Clearance 0 mL/min (70-130); Calcium 9.3 mg/dL (7.8-10.44); Carbon Dioxide 26 mmol/L (23-31); Chloride 104 mmol/L (98-107); Estimated GFR-MDRD 65; Glucose 120 mg/dL (83-110); Potassium 4.4 mmol/L (3.5-5.1); Sodium 138 mmol/L (136-145)
== END 2019-06-01 05:50 | disposition home or self-care (01) ==
LOC: LABBT 05:49
PROVIDERS: ATTEND Orthopaedic Surgery
DX: Z01.812 Encounter for preprocedural laboratory examination (principal); M17.11 Unilateral primary osteoarthritis, right knee
CPT/HCPCS: 80048; 81001; 85025; 85610; 87081; 87086

== ENCOUNTER 2019-06-12 06:52 | Day surgery (SDC) | payer MEDICARE ==
[2019-06-01 12:29] VITALS: BMI 30.8
--- NOTE | 2019-06-08 10:24 | HP ---
HISTORY OF PRESENT ILLNESS: The patient is an 89-year-old male, who has had progressive problems with his right knee over the past several years, especially in the past 6 months. He has had progressive weightbearing pain, which is worse with activities and has persisted despite rest, restriction of activities, anti-inflammatory medications, and cortisone injections. The pain is now interfering with day-to-day activities, ability to walk, get dressed, stay independent. He had previous left total knee replacement by me 5 years ago and is doing quite well. PAST MEDICAL HISTORY: The patient has history of atherosclerotic cardiovascular disease, atrial fibrillation, and type 2 diabetes. He has been seen and cleared for surgery by Dr. Dodd and Dr. Temple. He has had a prostate surgery for BPH and urinary retention by Dr. Matta in February of 2019 without further problems. He is no longer taking antibiotics for this. CURRENT MEDICATIONS: Include, 1. Oxybutynin. 2. Multivitamins. 3. Lipitor. 4. Zetia. 5. Tylenol. 6. Rapaflo. 7. Hydrocodone. 8. Flonase. 9. Fexofenadine. 10. Ezetimibe. 11. Digoxin. 12. Aspirin 81 mg. 13. Metformin. 14. Omeprazole. 15. Metoprolol. 16. Finasteride. 17. Colace. ALLERGIES: HE IS ALLERGIC TO PLAVIX, WHICH CAUSES ITCHING. FAMILY HISTORY: Otherwise unremarkable. SOCIAL HISTORY: Otherwise unremarkable. The patient lives with his daughter. REVIEW OF SYSTEMS: Otherwise unremarkable. PHYSICAL EXAMINATION: GENERAL: Reveals an elderly, alert male. HEENT: Unremarkable. NECK: Supple. CHEST: Clear. HEART: Regular rate and rhythm. ABDOMEN: Soft, nontender. RECTAL: Deferred. GENITAL: Deferred. EXTREMITIES: Pertinent findings of the right knee, there is puffiness, but no definite effusion. There is mild varus deformity. There is tenderness and crepitus over the medial joint line. Range of motion is 5 to 85 degrees. There is 1+ valgus laxity at 30 degrees of flexion. Calf is soft, nontender. Distal pulses are 1+ with a right antalgic gait. NEUROVASCULAR: Intact. DIAGNOSTIC STUDIES: X-rays of the right knee reveals tricompartmental DJD and [id number] collapse medially and vascular calcifications. IMPRESSION: 1. Degenerative arthritis-right knee. 2. Status post left total knee replacement. 3. Atherosclerotic cardiovascular disease. 4. Type 2 diabetes. 5. History of benign prostatic hypertrophy. PLAN: Right total knee replacement. The nature of the surgery, length of recovery, potential complications such as infection, loss of motion, incomplete relief, thromboembolic phenomena, neurovascular injury, possible transfusion, and need for revision have been discussed in detail. Because of his age, he may require a longer than usual hospitalization and may require placement prior to being going home depending on his progress. Job ID: [id number]
[2019-06-12] MEDS ORDERED: Gabapentin 300 MG CAP ONE (07:59)
[2019-06-12] MEDS ORDERED: Tranexamic Acid 1,000 MG/10 ML VIAL ONE ×2 (07:59→11:23)
[2019-06-12] MEDS ORDERED: Sodium Chloride 0.9% 100 ML ONE (07:59)
[2019-06-12] MEDS ORDERED: Vancomycin 1.5 GRAM/300 ML BAG 1.5 GM/300 ML BAG ONE (07:59)
[2019-06-12] MEDS ORDERED: Midazolam HCl 2 mg/2 ml Vial ONE (08:25)
[2019-06-12] MEDS ORDERED: Fentanyl 100 MCG/2 ML VIAL ONE ×2 (08:25→11:28)
[2019-06-12] MEDS ORDERED: Labetalol HCl 100 MG/20 ML VIAL ONE (08:50)
[2019-06-12] MEDS ORDERED: Lidocaine 1% w/Epinephrine 1:100K 20 ML VIAL ONE (09:04)
[2019-06-12] MEDS ORDERED: Bupivacaine 0.25% HCL 30 ML VIAL ONE (09:04)
[2019-06-12] MEDS ORDERED: Fentanyl 100 MCG/2 ML VIAL IV PRN (09:23)
[2019-06-12] MEDS ORDERED: Zolpidem Tartrate 5 MG TAB PO PRN ×2 (09:23→12:53)
[2019-06-12] MEDS ORDERED: Promethazine HCl 25 MG/ML VIAL IM PRN ×2 (09:23→10:36)
[2019-06-12] MEDS ORDERED: traMADol HCl 50 MG TAB PO PRN ×2 (09:23→12:53)
[2019-06-12] MEDS ORDERED: Acetaminophen 325 MG TAB PO PRN ×2 (09:23→12:53)
[2019-06-12] MEDS ORDERED: Ondansetron PF 4 MG/2 ML Vial IVP PRN ×2 (09:23→12:53)
[2019-06-12] MEDS ORDERED: Ropivacaine HCl/PF 250 ML in Premix Bag 1 BAG NERVE BLCK SCH (09:23)
[2019-06-12] MEDS ORDERED: Ropivacaine 0.2% HCl/PF (40 MG/20 ML VIAL) ONE (09:33)
[2019-06-12] MEDS ORDERED: Lidocaine 1% PF 5 ML VIAL ONE (09:33)
[2019-06-12] MEDS ORDERED: Ropivacaine 0.5% HCl/PF (150 MG/30 ML VIAL) ONE (09:33)
[2019-06-12] MEDS ORDERED: Ondansetron PF 4 MG/2 ML Vial ONE (09:33)
[2019-06-12] MEDS ORDERED: PROPOFOL 200 MG/20 ML VIAL ONE (09:33)
[2019-06-12] MEDS ORDERED: EPHEDRINE 25 MG/5 ML SYRINGE ONE (09:33)
[2019-06-12] MEDS ORDERED: Promethazine HCl 25 MG/ML VIAL SLOW IVP PRN ×2 (10:36→12:53)
[2019-06-12] MEDS ORDERED: Ondansetron HCl/PF 4 MG/2 ML Vial IVP PRN (10:36)
[2019-06-12] MEDS ORDERED: Tranexamic Acid 1,000 MG in Sodium Chloride 0.9% 100 ML IVPB SCH ×2 (11:30→12:53)
--- NOTE | 2019-06-12 11:51 | OP ---
DATE OF PROCEDURE: 06/12/2019 PAYROLL EXAMINER: Yanet Hunter PA-C ANESTHESIA: General plus adductor canal and sciatic nerve blocks. PREOPERATIVE DIAGNOSIS: Degenerative arthritis, right knee. POSTOPERATIVE DIAGNOSIS: Degenerative arthritis, right knee. PROCEDURES PERFORMED: 1. Right total knee replacement with computer-assisted navigation with cemented [place] Triathlon components (#6 femoral component, #5 primary tibial baseplate with 11 mm CS plastic insert, and all-plastic A35 patellar component). DESCRIPTION OF PROCEDURE: After satisfactory anesthesia was induced in supine position, sequential compression device was placed on the nonoperative leg throughout the procedure. The right leg was elevated with an Esmarch bandage and the tourniquet inflated to 250 mmHg. A gently curved medial parapatellar incision was made, carried down to subcutaneous tissues and bleeding points were controlled with Bovie cautery. Medial parapatellar arthrotomy was performed. The patella was dislocated laterally and portions of the fat pad were excised for exposure. There was marked tricompartmental degenerative arthritis of the knee with large areas of exposed bone. Meniscal remnants and osteophytes were removed. Using the [employer] pinless navigation system and the appropriate guides, the distal femoral and proximal tibial articular surfaces were excised to accept the trial components. It was felt, a #6 femoral component and #5 tibial baseplate with 11 mm CS plastic insert gave appropriate size, fit, stability, and correction of the preoperative deformity. The patellar articular surface was excised to accept all-plastic A35 patellar component. There was good range of motion and good patellar tracking. The trial components were removed. The knee was copiously irrigated with pulsatile lavage and the bony surfaces were thoroughly cleaned and dried. The permanent components were then cemented in a single stage using one pack of cement premixed with 1 g of tobramycin powder. Excess cement was removed. There was again good fit and stability of components. The knee was then copiously irrigated. The medial retinaculum and quadriceps mechanism were closed with interrupted #2 Vicryl and a running #2 Quill. The skin was infiltrated with a mixture of 30 mL of 0.25% Marcaine and 30 mL of 1% lidocaine with epinephrine. Subcutaneous tissues were closed with a running 0 Quill suture and the skin closed with running subcuticular 3-0 Monoderm and SurgiSeal skin adhesive. A sterile bulky compressive dressing was applied and the tourniquet deflated after 82 minutes. The foot promptly pinked up and a sequential compression device was applied to his operated leg. He was awakened and taken to recovery room in stable condition. There were no apparent intraoperative complications. ESTIMATED BLOOD LOSS: Less than 100 mL. Job ID: [id number]
[2019-06-12] MEDS ORDERED: Ketorolac Tromethamine 30 MG/ML VIAL ONE (11:56)
--- NOTE | 2019-06-12 12:26 | RAD ---
RIGHT KNEE 2 VIEWS: Date: 06/12/2019 HISTORY: Postop. FINDINGS: Total knee prosthesis is in good position. No evidence of fracture. The bones appear demineralized. IMPRESSION: Placement of total knee prosthesis. POS: TAY
[2019-06-12] MEDS ORDERED: HYDROcodone/Acetaminophen 10/325 mg Tablet PO PRN ×2 (12:53)
[2019-06-12] MEDS ORDERED: Fentanyl 100 MCG/2 ML VIAL SLOW IVP PRN ×2 (12:53)
[2019-06-12] MEDS ORDERED: Ketorolac Tromethamine 30 MG/ML VIAL IVP SCH (12:53)
[2019-06-12] MEDS ORDERED: Ezetimibe 10 MG TAB PO SCH (13:30)
[2019-06-12] MEDS ORDERED: Aspirin 81 mg Enteric Coated Tablet PO SCH (13:30)
[2019-06-12] MEDS ORDERED: Finasteride 5 MG TAB PO SCH (13:30)
[2019-06-12] MEDS ORDERED: Ubidecarenone 50 MG CAP PO SCH (13:30)
[2019-06-12] MEDS ORDERED: Digoxin 0.25 MG TAB PO SCH (13:30)
[2019-06-12] MEDS ORDERED: metFORMIN 500 MG TAB PO SCH (13:30)
[2019-06-12] MEDS ORDERED: Silodosin 8 MG CAP PO SCH (13:30)
[2019-06-12] MEDS: Ketorolac Tromethamine 30 MG/ML VIAL IVP SCH ×2 (14:38→18:03)
[2019-06-12] MEDS: Sodium Chloride 0.9% 1,000 ML IV SCH ×2 (14:40→20:33)
[2019-06-12] MEDS: HYDROcodone/Acetaminophen 10/325 mg Tablet PO PRN ×2 (15:16→18:47)
[2019-06-12] MEDS ORDERED: Dextrose 50% Abboject 50 ML SYRINGE IVP PRN (17:43)
[2019-06-12] MEDS ORDERED: Insulin Regular 300 UNITS/3 ML VIAL SC PRN (17:43)
[2019-06-12] MEDS ORDERED: Dextrose 5% in Water 1,000 ML IV PRN (17:43)
[2019-06-12] MEDS: metFORMIN 500 MG TAB PO SCH (18:04)
[2019-06-12] MEDS: CEFAZOLIN 2 GM in Premix Bag 1 BAG IVPB SCH (18:05)
[2019-06-12] MEDS ORDERED: Vancomycin 1.5 GRAM/300 ML BAG 1.5 GM in Premix Bag 1 BAG IVPB SCH (20:00)
[2019-06-12] MEDS: Atorvastatin Calcium 40 MG TAB PO SCH (20:31)
[2019-06-12] MEDS: Aspirin 81 mg Enteric Coated Tablet PO SCH (20:31)
--- NOTE | 2019-06-12 21:31 | CON ---
DATE OF CONSULTATION: 06/12/2019 REASON FOR CONSULTATION: Manage medical problems. ATTENDING PHYSICIAN: Lalit Palmoo MD. CONSULTING PHYSICIAN: Marcelo Temple MD HISTORY OF PRESENT ILLNESS: Mr. Romo is an 89-year-old male, admitted because for total knee replacement. The patient had severe degenerative joint disease for some time of the right knee with a lot of pain. The patient decided to go for surgery. He was cleared by Dr. Perez and myself preoperatively. He underwent surgery and he is being doing fine. No shortness of breath. No chest pain. No fever. No nausea or vomiting. The patient says that his pain is under control and was able to ambulate with physical therapy also. PAST MEDICAL HISTORY: 1. Hypertension. 2. Diabetes mellitus. 3. Benign prostatic enlargement. 4. Gastroesophageal reflux disease. 5. Coronary artery disease status post CO. 6. Rodriguez's esophagus. 7. Hyperlipidemia. PAST SURGICAL HISTORY: 1. Status post transurethral vaporization of prostate. 2. Status post left knee surgery. 3. Status post cholecystectomy. 4. Status post stent placement. CURRENT MEDICATIONS: The patient is on: 1. Aspirin 81 mg. 2. Tylenol p.r.n. 3. Metformin 500 mg b.i.d. 4. Omeprazole 40 mg daily. 5. Metoprolol succinate 25 mg daily. 6. Digoxin 250 mcg daily. 7. Finasteride 5 mg daily. 8. Atorvastatin 80 mg daily. 9. Coenzyme Q daily. 10. Zetia 10 mg daily. ALLERGIES: NKDA. FAMILY HISTORY: Nothing contributory. SOCIAL HISTORY: The patient lives with family. No history of smoking. No history of alcohol. REVIEW OF SYSTEMS: CARDIOVASCULAR: No chest pain. No shortness of breath. RESPIRATORY: No fever or cough. GASTROINTESTINAL: No nausea or vomiting. No abdominal pain. CENTRAL NERVOUS SYSTEM: No headache. No dizziness. PHYSICAL EXAMINATION: GENERAL: The patient is alert, awake, oriented x3. VITAL SIGNS: Temperature 98, respirations 20, blood pressure 140/80. HEENT: Head is normocephalic, atraumatic. Pupils equal and reactive. Nasopharynx is pale and dry. NECK: Supple. No JVD. LUNGS: Bilateral air entry. No rales. No rhonchi. ABDOMEN: Soft. No distention. No tenderness. No organomegaly. Bowel sounds present. RECTAL: Deferred. CENTRAL NERVOUS SYSTEM: No focal deficit. LABORATORY DATA: CBC done 3 days ago revealed WBC 9.3, hemoglobin 13, hematocrit 30, platelets 271. Metabolic panel; sodium 138, potassium 4.4, chloride 104, CO2 23, BUN 12, creatinine 1.07, glucose 120. ASSESSMENT: 1. Diabetes mellitus. 2. Hypertension. 3. Severe degenerative joint disease, right knee status post total knee replacement. 4. Hyperlipidemia. 5. Status post recent prostate surgery. 6. Anemia. PLAN: 1. Vital signs q.4 hours. 2. Activity, as tolerated. 3. Allergies, NKDA. 4. Hep-Lock. 5. Accu-Chek a.c. and at bedtime with sliding scale mild with regular insulin. 6. Continues his home medications. 7. CBC and basic metabolic panel in the morning. Thank you very much for the consult. I will follow. Job ID: [id number] MTDD
[2019-06-13] MEDS: HYDROcodone/Acetaminophen 10/325 mg Tablet PO PRN ×4 (00:11→20:09)
[2019-06-13] MEDS: Ketorolac Tromethamine 30 MG/ML VIAL IVP SCH ×4 (00:12→16:29)
[2019-06-13] MEDS: CEFAZOLIN 2 GM in Premix Bag 1 BAG IVPB SCH (00:12)
[2019-06-13 05:09] LABS: #Basophils 0.1 thou/uL (0.0-0.2); #Eosinphils 0.1 thou/uL (0.0-0.7); #Monocytes 1.2 thou/uL (0.11-0.59); #Neutrophils 8.8 thou/uL (1.40-6.50); %Basophils 0.6 % (0.0-1.0); %Eosinophils 0.6 % (0.0-10.0); %Lymphocytes 9.2 % (21.0-51.0); %Monocytes 10.4 % (0.0-10.0); %Neutrophils 79.2 % (42.0-75.0); Hemoglobin 11.6 g/dL (14.0-18.0); Mean Corpuscular HGB CONC 35.1 g/dL (32.0-36.0); Mean Corpuscular Hemoglobin 34.5 pg (27.0-31.0); Mean Corpuscular Volume 98.3 fL (78.0-98.0); Mean Platelet Volume 7.1 fL (7.4-10.4); Platelet Count 176 thou/uL (130-400); RBC Distribution Width 11.9 % (11.5-14.5); Red Blood Cell (RBC) Count 3.35 mill/uL (4.70-6.10); White Blood Cell (WBC) Count 11.1 thou/uL (4.8-10.8)
[2019-06-13 05:27] LABS: Anion Gap 13 mmol/L (10-20); BUN (Urea Nitrogen) 14 mg/dL (8.4-25.7); Calc. Creatinine Clearance 72 mL/min (70-130); Calcium 7.9 mg/dL (7.8-10.44); Carbon Dioxide 25 mmol/L (23-31); Chloride 104 mmol/L (98-107); Estimated GFR-MDRD 73; Glucose 139 mg/dL (83-110); Potassium 4.5 mmol/L (3.5-5.1); Sodium 137 mmol/L (136-145)
[2019-06-13] MEDS: metFORMIN 500 MG TAB PO SCH (08:45)
[2019-06-13] MEDS: Senokot S 8.6-50 MG TAB PO SCH ×2 (08:45→20:09)
[2019-06-13] MEDS: Multivitamin W/ Minerals 1 TAB PO SCH (08:45)
[2019-06-13] MEDS: Digoxin 0.25 MG TAB PO SCH (08:45)
[2019-06-13] MEDS: Ezetimibe 10 MG TAB PO SCH (08:45)
[2019-06-13] MEDS: Aspirin 81 mg Enteric Coated Tablet PO SCH ×2 (08:46→20:09)
[2019-06-13] MEDS: Finasteride 5 MG TAB PO SCH (08:46)
[2019-06-13] MEDS: Silodosin 8 MG CAP PO SCH (08:46)
[2019-06-13] MEDS: Ubidecarenone 50 MG CAP PO SCH (08:46)
[2019-06-13] MEDS: Sodium Chloride 0.9% 1,000 ML IV SCH ×2 (08:47→10:39)
[2019-06-13] MEDS: diphenhydrAMINE 25 MG CAP PO PRN (16:29)
[2019-06-13] MEDS: Atorvastatin Calcium 40 MG TAB PO SCH (20:09)
[2019-06-14] MEDS: Ketorolac Tromethamine 30 MG/ML VIAL IVP SCH ×2 (00:19→06:19)
[2019-06-14] MEDS: Sodium Chloride 0.9% 1,000 ML IV SCH ×2 (04:19→13:55)
[2019-06-14] MEDS: Senokot S 8.6-50 MG TAB PO SCH ×2 (08:27→20:14)
[2019-06-14] MEDS: Multivitamin W/ Minerals 1 TAB PO SCH (08:28)
[2019-06-14] MEDS: Ubidecarenone 50 MG CAP PO SCH (08:28)
[2019-06-14] MEDS: Finasteride 5 MG TAB PO SCH (08:28)
[2019-06-14] MEDS: Silodosin 8 MG CAP PO SCH (08:28)
[2019-06-14] MEDS: metFORMIN 500 MG TAB PO SCH (08:28)
[2019-06-14] MEDS: Digoxin 0.25 MG TAB PO SCH (08:28)
[2019-06-14] MEDS: Aspirin 81 mg Enteric Coated Tablet PO SCH ×2 (08:28→20:14)
[2019-06-14] MEDS: Ezetimibe 10 MG TAB PO SCH (08:28)
[2019-06-14] MEDS: diphenhydrAMINE 25 MG CAP PO PRN ×2 (08:31→18:24)
[2019-06-14] MEDS: HYDROcodone/Acetaminophen 10/325 mg Tablet PO PRN ×4 (09:39→22:57)
[2019-06-14] MEDS: Atorvastatin Calcium 40 MG TAB PO SCH (20:14)
[2019-06-15] MEDS: Sodium Chloride 0.9% 1,000 ML IV SCH ×2 (00:46→10:47)
[2019-06-15] MEDS: HYDROcodone/Acetaminophen 10/325 mg Tablet PO PRN (05:04)
[2019-06-15] MEDS: Ezetimibe 10 MG TAB PO SCH (08:17)
[2019-06-15] MEDS: Multivitamin W/ Minerals 1 TAB PO SCH (08:17)
[2019-06-15] MEDS: Digoxin 0.25 MG TAB PO SCH (08:17)
[2019-06-15] MEDS: Senokot S 8.6-50 MG TAB PO SCH (08:17)
[2019-06-15] MEDS: metFORMIN 500 MG TAB PO SCH (08:18)
[2019-06-15] MEDS: Silodosin 8 MG CAP PO SCH (08:18)
[2019-06-15] MEDS: traMADol HCl 50 MG TAB PO PRN ×2 (08:18→14:04)
[2019-06-15] MEDS: Finasteride 5 MG TAB PO SCH (08:18)
[2019-06-15] MEDS: Aspirin 81 mg Enteric Coated Tablet PO SCH (08:18)
[2019-06-15] MEDS: Ubidecarenone 50 MG CAP PO SCH (08:18)
[2019-06-15 15:30] VITALS: BP 138/64; TEMP 98.6
--- NOTE | 2019-06-16 13:57 | DIS ---
DATE OF ADMISSION: 06/12/2019 DATE OF DISCHARGE: 06/15/2019 This is Yanet Hunter PA-C dictating a report for Lalit Palomo MD. REASON FOR ADMISSION: Right total knee replacement. ATTENDING PHYSICIAN: Lalit Palomo MD CONSULTANTS ON THE CASE: Include [facility] and [facility]. PREOPERATIVE DIAGNOSIS: Degenerative osteoarthritis, right knee. POSTOPERATIVE DIAGNOSIS: Degenerative osteoarthritis, right knee. PROCEDURE PERFORMED: Right total knee replacement with computer assisted navigation with cemented [place] triathlon components. BRIEF HOSPITAL COURSE: This is an 89-year-old male who was indicated for the above-mentioned procedure after failing outpatient conservative management. He did well in the operative suite. Postoperatively, he was admitted to [address] Here he worked with physical and occupational therapist. He got out of bed the day of surgery. He was walking well in the hallway with physical therapist. On postoperative day number three, the patient was discharged to home with family. No complications were incurred throughout his hospital stay. DISCHARGE CONDITION: Stable. DISCHARGE DISPOSITION: Home with home health physical therapy. DISCHARGE INSTRUCTIONS: The patient will follow up with Dr. Palomo as scheduled. He will keep his surgical site clean, dry, and intact. He will take all medications as prescribed. DISCHARGE MEDICATIONS: See SILVIA. Job ID: [id number]
== END 2019-06-15 14:43 | disposition home or self-care (01) ==
LOC: SDC 06:52 → SJJU 07:08 → UNDOADMIN 12:53 → SDC 12:53 → UNDODISIN 06-15 14:30 → SDC 06-15 14:43
PROVIDERS: ATTEND Orthopaedic Surgery
PROC: 0SRC0J9 Replacement of Right Knee Joint with Synthetic Substitute, Cemented, Open Approach (ICD-10-PCS; principal; 2019-06-12)
PROC: 8E0YXBZ Computer Assisted Procedure of Lower Extremity (ICD-10-PCS; 2019-06-12)
PROC: 3E0T3BZ Introduction of Anesthetic Agent into Peripheral Nerves and Plexi, Percutaneous Approach (ICD-10-PCS; 2019-06-12)
DX: M17.11 Unilateral primary osteoarthritis, right knee (principal); M21.161 Varus deformity, not elsewhere classified, right knee; G89.18 Other acute postprocedural pain; I25.10 Atherosclerotic heart disease of native coronary artery without angina pectoris; E11.9 Type 2 diabetes mellitus without complications; K21.9 Gastro-esophageal reflux disease without esophagitis; K22.70 Barrett's esophagus without dysplasia; M19.90 Unspecified osteoarthritis, unspecified site; E78.5 Hyperlipidemia, unspecified; I25.2 Old myocardial infarction; I48.91 Unspecified atrial fibrillation; I10 Essential (primary) hypertension; D64.9 Anemia, unspecified; Z79.82 Long term (current) use of aspirin; Z87.891 Personal history of nicotine dependence; Z79.84 Long term (current) use of oral hypoglycemic drugs; Z79.899 Other long term (current) drug therapy; Z88.8 Allergy status to other drugs, medicaments and biological substances; Z95.5 Presence of coronary angioplasty implant and graft; Z96.652 Presence of left artificial knee joint
CPT/HCPCS: 20985; 27447; 64448; 73560; 80048; 82962 ×4; 85025; 97110; 97116 ×4; 97139 ×3; 97150 ×2; 97530 ×2; 98961; C1713; C1776; 36415; 36416; J0690; J1815; J1885; J2001; J2250; J2405; J2704; J2795; J3010; J3490; Q0163; S0020

== ENCOUNTER 2019-08-02 07:05 | Outpatient (CLI) | payer MEDICARE ==
--- NOTE | 2019-08-02 07:38 | ULT ---
Sonogram abdomen limited HISTORY: Anterior abdominal wall bulge/mass. Possible hernia. FINDINGS: Anterior abdominal wall was imaged, including while patient was bearing down. No anterior abdominal wall defects are apparent, with particular attention paid to midline. Limited images of the internal organs show normal appearance of the abdominal aorta. IMPRESSION : No sonographic evidence of anterior abdominal wall hernia.
== END 2019-08-02 07:06 | disposition home or self-care (01) ==
LOC: BICULT 07:05
PROVIDERS: ATTEND Nurse Practitioner Family
DX: K43.9 Ventral hernia without obstruction or gangrene (principal)
CPT/HCPCS: 76705

== ENCOUNTER 2019-09-08 08:47 | Outpatient (CLI) | payer MEDICARE ==
--- NOTE | 2019-09-08 13:28 | CT ---
CT OF THE ABDOMEN AND PELVIS WITH IV CONTRAST: 09/08/19 INDICATION: 89-year-old male with mid abdominal pain on and off for the past two years since a cholecystectomy. COMPARISON: Prior CT of the abdomen and pelvis without contrast dated January from [facility] and a p rior CT of the abdomen and pelvis with contrast dated 08/04/2017 also from [facility]. FINDINGS: The bibasilar interstitial fibrotic change is similar appearing. Benign pulmonary nodules within the lingula and left lower lobe are stable appearing. No focal hepatic lesion is evident. The gallbladder is surgically absent. The pancreas, adrenal gland s and spleen appear within normal limits. There are moderate calcifications involving the abdominopelvic vasculature. There are bilateral renal cysts. No hydronephrosis is evident. There is a moderate amount of retained stool within the colon. The appendix is normal in the right lo wer quadrant. Small bowel is normal appearing. The prostate remains enlarged measuring 5 cm. No pathologically enlarged lymph nodes are evident. The re are small phleboliths within the lower pelvis. There is diffuse osteopenia. There is scattered degenerative and osteoarthritic change. IMPRESSION: 1. No acute CT abnormality to explain the patient's mid abdominal pain. 2. Mild amount of retained stool within the colon. 3. Stable prostate enlargement. 4. 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 5. Stable small benign appearing pulmonary nodule in the lingula and left lower lobe. POS: BH
== END 2019-09-08 08:48 | disposition home or self-care (01) ==
LOC: SCSCT 08:47
PROVIDERS: ATTEND Physician Assistant Medical
DX: K21.9 Gastro-esophageal reflux disease without esophagitis (principal); R10.13 Epigastric pain; R63.4 Abnormal weight loss; K59.00 Constipation, unspecified; N40.0 Benign prostatic hyperplasia without lower urinary tract symptoms; J84.10 Pulmonary fibrosis, unspecified; R91.1 Solitary pulmonary nodule
CPT/HCPCS: 74177; 82565

== ENCOUNTER 2019-09-27 06:42 | Outpatient (CLI) | payer MEDICARE, OTHER ==
[2019-09-28 18:18] LABS: SARS-CoV-2 MS2 Positive; SARS-CoV-2 N Gene Negative; SARS-CoV-2 S Gene Negative; SARS-CoV-2 orf1ab Negative
== END 2019-09-27 06:43 | disposition home or self-care (01) ==
LOC: LABBT 06:42
PROVIDERS: ATTEND Internal Medicine Gastroenterology
DX: Z01.812 Encounter for preprocedural laboratory examination (principal); Z11.59 Encounter for screening for other viral diseases; K21.9 Gastro-esophageal reflux disease without esophagitis; R10.13 Epigastric pain; Z86.010 Personal history of colon polyps
CPT/HCPCS: 87635; U0003

== ENCOUNTER 2019-09-29 10:58 | Day surgery (SDC) | payer MEDICARE ==
[2019-09-28 08:17] VITALS: BMI 28.8
[2019-09-29] MEDS ORDERED: PROPOFOL 200 MG/20 ML VIAL ONE (11:57)
[2019-09-29] MEDS ORDERED: Lidocaine 1% PF 5 ML VIAL ONE (11:57)
--- NOTE | 2019-09-29 20:51 | OP ---
DATE OF PROCEDURE: 09/29/2019 PROCEDURE PERFORMED: Colonoscopy with snare polypectomy. PREPROCEDURE DIAGNOSES: 1. History of colon polyps. 2. Recent 35-pound weight loss. 3. Upper abdominal pain. POSTPROCEDURE DIAGNOSES: 1. Exam to cecum; good bowel preparation. 2. Diffusely redundant colon. 3. Diminutive polyp (4 mm) in the proximal descending colon, removed by cold snare technique. 4. Diminutive polyp (6 mm) in the transverse colon, removed by cold snare technique. 5. No colitis or diverticulitis. 6. Small internal hemorrhoids. 7. No evidence of colonic bleeding. 8. Otherwise normal colonoscopy. PROCEDURE IN DETAIL: Written informed consent was obtained. Upon completion of the EGD, the patient was repositioned for the colonoscopy. Total intravenous anesthesia was administered by Harmony Tello CRNA. The patient was placed in the left lateral decubitus position. A digital rectal exam was performed that was unremarkable. A Pentax video colonoscope was inserted through the anal canal and advanced under direct visualization to the cecum. Position in the cecum was verified by clear identification of the appendiceal orifice and the ileocecal valve. The quality of the bowel preparation was good. Endoscopic findings revealed diffusely redundant colon. There was no evidence of colitis, diverticulitis, or rectal bleeding. In the transverse colon, a 6 mm sessile polyp was identified and removed by cold snare technique. Another small sessile polyp 4 mm in diameter was identified and removed from the proximal descending colon by cold snare technique. Both polyps were submitted to Pathology. Each section of the colon was carefully inspected as the colonoscope was slowly withdrawn. A retroflexed exam in the rectum demonstrated small internal hemorrhoids that were not actively bleeding. The colon was decompressed as the colonoscope was completely removed from the patient. He was transferred to the Day Stay surgery area for postprocedure monitoring. There were no immediate complications. RECOMMENDATIONS: 1. Await pathology results. 2. Ask the patient to call me in 1 week for pathology results. 3. High-fiber low-fat diet. 4. Conservative management for hemorrhoids, which would include sitz baths p.r.n. and Preparation H cream t.i.d. p.r.n. 5. Due to advanced age and small size of the polyps removed, I do not recommend another colonoscopy for purposes of surveillance. 6. Follow up in GI clinic in 3 to 4 weeks. Job ID: [id number]
--- NOTE | 2019-09-29 21:13 | OP ---
DATE OF PROCEDURE: 09/29/2019 PROCEDURE PERFORMED: Esophagogastroduodenoscopy with biopsy. PREPROCEDURE DIAGNOSES: 1. Intractable epigastric pain, improving with high-dose PPI therapy. 2. History of Rodriguez esophagus. 3. History of 35-pound weight loss over the last 6 to 8 months. POSTPROCEDURE DIAGNOSES: 1. Exam to second portion of duodenum. 2. Chronic circumferential esophagitis extending from 38 cm to 42 cm from the incisors, biopsied. 3. Small sliding hiatal hernia. 4. Moderate distal body/antral gastritis, biopsied. 5. Grossly normal duodenum. 6. No evidence of discrete ulcer or active bleeding in the upper digestive tract. DESCRIPTION OF PROCEDURE: Written informed consent was obtained. The patient was brought to the endoscopy suite. Total intravenous anesthesia was administered by Dr. Eitan Ahmadi and associates. The patient was placed in the left lateral decubitus position. A bite block was inserted into the mouth. The Pentax video diagnostic gastroscope was introduced into the oral cavity, and the esophagus was carefully intubated. The gastroscope was advanced under direct visualization to the second portion of the duodenum. Endoscopic findings revealed a 1 to 2 cm sliding hiatal hernia. Chronic circumferential esophagitis was identified extending from 38 cm to 41 cm from the incisors. Four quadrant biopsies were obtained at 41 cm and 39 cm for histopathology. There was no evidence of mass or polypoid lesion in the lower esophagus. 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 The stomach was then entered and carefully examined. This included a retroflexed view of the cardia and fundus. The retroflexed exam demonstrated a hiatal hernia. Mucosal changes consistent with a moderate gastritis were noted in the body/antrum. These mucosal changes included diffuse mild congestion, patchy erythema, and patches of mucosa that appeared whitish in coloration without obvious ulceration or bleeding. Biopsies were obtained for histology. Examination of the duodenum from the bulb to the second portion was unremarkable. No duodenal ulcers were seen. The stomach was then decompressed as the endoscope was removed from the patient. He was then repositioned for the colonoscopy. There were no immediate complications. RECOMMENDATIONS: 1. Await pathology results. 2. Ask the patient to call me in 1 week for pathology results. 3. Continue omeprazole 40 mg b.i.d. 4. Proceed with colonoscopy. 5. Follow up in GI clinic in 3 to 4 weeks. Job ID: [id number]
== END 2019-09-29 15:53 | disposition home or self-care (01) ==
LOC: SDC 10:58
PROVIDERS: ATTEND Internal Medicine Gastroenterology
PROC: 0DB58ZX Excision of Esophagus, Via Natural or Artificial Opening Endoscopic, Diagnostic (ICD-10-PCS; principal; 2019-09-29)
PROC: 0DB78ZX Excision of Stomach, Pylorus, Via Natural or Artificial Opening Endoscopic, Diagnostic (ICD-10-PCS; 2019-09-29)
PROC: 0DBM8ZX Excision of Descending Colon, Via Natural or Artificial Opening Endoscopic, Diagnostic (ICD-10-PCS; 2019-09-29)
PROC: 0DBL8ZX Excision of Transverse Colon, Via Natural or Artificial Opening Endoscopic, Diagnostic (ICD-10-PCS; 2019-09-29)
DX: D12.3 Benign neoplasm of transverse colon (principal); D12.4 Benign neoplasm of descending colon; K22.70 Barrett's esophagus without dysplasia; K31.89 Other diseases of stomach and duodenum; K21.0 Gastro-esophageal reflux disease with esophagitis; K44.9 Diaphragmatic hernia without obstruction or gangrene; K64.8 Other hemorrhoids; Q43.8 Other specified congenital malformations of intestine; E78.5 Hyperlipidemia, unspecified; I25.10 Atherosclerotic heart disease of native coronary artery without angina pectoris; I25.2 Old myocardial infarction; E11.9 Type 2 diabetes mellitus without complications; N40.0 Benign prostatic hyperplasia without lower urinary tract symptoms; M19.90 Unspecified osteoarthritis, unspecified site; I10 Essential (primary) hypertension; R63.4 Abnormal weight loss; Z68.28 Body mass index [BMI] 28.0-28.9, adult; Z86.010 Personal history of colon polyps; Z87.891 Personal history of nicotine dependence; Z80.0 Family history of malignant neoplasm of digestive organs; Z79.82 Long term (current) use of aspirin; Z79.84 Long term (current) use of oral hypoglycemic drugs; Z79.899 Other long term (current) drug therapy; Z88.8 Allergy status to other drugs, medicaments and biological substances
CPT/HCPCS: 88305; 88312; 88313; J2001; J2704

== ENCOUNTER 2020-10-02 18:52 | Observation (INO) | payer MEDICARE ==
[~2020-10-02 18:52] MED LIST changes: -ISOVUE-370 76%-LOCM 1 ML ONE; +Iopamidol-370 76% 500 ML 1 ML ONE
[2020-10-02 19:37] LABS: #Basophils 0.1 thou/uL (0.0-0.2); #Eosinphils 0.1 thou/uL (0.0-0.7); #Monocytes 0.6 thou/uL (0.11-0.59); #Neutrophils 5.5 thou/uL (1.40-6.50); %Basophils 0.6 % (0.0-1.0); %Eosinophils 1.4 % (0.0-10.0); %Lymphocytes 24.1 % (21.0-51.0); %Monocytes 6.7 % (0.0-10.0); %Neutrophils 67.2 % (42.0-75.0); Hemoglobin 13.3 g/dL (14.0-18.0); Mean Corpuscular HGB CONC 35.2 g/dL (32.0-36.0); Mean Corpuscular Hemoglobin 35.4 pg (27.0-31.0); Mean Platelet Volume 6.7 fL (7.4-10.4); Platelet Count 198 thou/uL (130-400); RBC Distribution Width 11.6 % (11.5-14.5); Red Blood Cell (RBC) Count 3.76 mill/uL (4.70-6.10); White Blood Cell (WBC) Count 8.2 thou/uL (4.8-10.8)
[2020-10-02 20:02] LABS: ALT (SGPT) 20 U/L (8-55); AST (SGOT) 14 U/L (5-34); Albumin 3.9 g/dL (3.4-4.8); Alkaline Phosphatase 98 U/L (40-110); Anion Gap 14 mmol/L (10-20); BUN (Urea Nitrogen) 25 mg/dL (8.4-25.7); Bilirubin, Total 0.3 mg/dL (0.2-1.2); Calc. Creatinine Clearance 0 mL/min (70-130); Calcium 8.8 mg/dL (7.8-10.44); Carbon Dioxide 22 mmol/L (23-31); Chloride 108 mmol/L (98-107); Glucose 126 mg/dL (83-110); Potassium 4.6 mmol/L (3.5-5.1); Protein, Total 5.9 g/dL (5.8-8.1); Sodium 139 mmol/L (136-145)
[2020-10-02] MEDS ORDERED: Aspirin Chewable 81 MG TAB ONE (21:27)
[2020-10-02 22:41] LABS: SARS-CoV-2 NAA Rapid Test Not Detected (NotDetected)
[2020-10-02 23:23] VITALS: BMI 31.0
[2020-10-03] MEDS ORDERED: Dextrose 5% in Water 1,000 ML IV PRN (01:02)
[2020-10-03] MEDS ORDERED: Ondansetron ODT 4 MG TAB PO PRN (01:02)
[2020-10-03] MEDS ORDERED: Dextrose 50% Abboject 50 ML SYRINGE SLOW IVP PRN (01:02)
[2020-10-03] MEDS ORDERED: Ondansetron PF 4 MG/2 ML Vial IVP PRN (01:02)
[2020-10-03] MEDS ORDERED: Acetaminophen 325 MG TAB PO PRN (01:02)
[2020-10-03] MEDS ORDERED: HumaLOG 300 UNITS/3 ML VIAL SC PRN ×2 (01:02)
[2020-10-03 06:11] LABS: #Eosinphils 0.1 thou/uL (0.0-0.7); #Lymphocytes 1.7 thou/uL (1.20-3.40); #Monocytes 0.6 thou/uL (0.11-0.59); #Neutrophils 4.1 thou/uL (1.40-6.50); %Basophils 0.4 % (0.0-1.0); %Eosinophils 1.7 % (0.0-10.0); %Lymphocytes 26.4 % (21.0-51.0); %Monocytes 8.5 % (0.0-10.0); Hemoglobin 12.7 g/dL (14.0-18.0); Mean Corpuscular Hemoglobin 35.3 pg (27.0-31.0); Mean Platelet Volume 6.9 fL (7.4-10.4); Platelet Count 170 thou/uL (130-400); RBC Distribution Width 11.6 % (11.5-14.5); Red Blood Cell (RBC) Count 3.61 mill/uL (4.70-6.10); White Blood Cell (WBC) Count 6.4 thou/uL (4.8-10.8)
[2020-10-03 06:32] LABS: Anion Gap 12 mmol/L (10-20); BUN (Urea Nitrogen) 22 mg/dL (8.4-25.7); Calc. Creatinine Clearance 51 mL/min (70-130); Calcium 8.6 mg/dL (7.8-10.44); Carbon Dioxide 24 mmol/L (23-31); Chloride 109 mmol/L (98-107); Glucose 100 mg/dL (83-110); Sodium 140 mmol/L (136-145)
[2020-10-03] MEDS ORDERED: Non-Formulary Item 1 EACH (Atorvastatin Calcium [Atorvastatin Calcium] 80 MG Tablet) PO SCH (09:00)
[2020-10-03] MEDS ORDERED: Ezetimibe 10 MG TAB PO SCH (09:00)
[2020-10-03] MEDS ORDERED: Aspirin 81 mg Enteric Coated Tablet PO SCH (09:00)
[2020-10-03] MEDS ORDERED: Enoxaparin Sodium 40 MG/0.4 ML SYRINGE SC SCH (09:00)
[2020-10-03] MEDS ORDERED: Lisinopril 10 MG TAB PO SCH (09:00)
[2020-10-03] MEDS ORDERED: UBIDECARENONE 200 MG PO SCH (09:00)
[2020-10-03] MEDS ORDERED: Non-Formulary Item 1 EACH (Omeprazole [Omeprazole] 40 MG Capsule.Dr) PO SCH (09:00)
[2020-10-03] MEDS ORDERED: Non-Formulary Item 1 EACH (Diltiazem Hcl [Diltiazem 12hr Er] 120 MG Cap.Er.12h) PO SCH (09:00)
[2020-10-03 11:52] VITALS: BP 119/60; TEMP 97.9
[2020-10-03] MEDS ORDERED: Atorvastatin Calcium 40 MG TAB PO SCH (21:00)
[2020-10-04] MEDS ORDERED: metFORMIN 500 MG TAB PO SCH (08:00)
== END 2020-10-03 13:13 | disposition home or self-care (01) ==
LOC: ERS 18:52 → T4-B 21:57
PROVIDERS: ADMIT Student in an Organized Health Care Education/Training Program; ATTEND Internal Medicine
DX: J84.9 Interstitial pulmonary disease, unspecified (principal); I27.21 Secondary pulmonary arterial hypertension; E11.9 Type 2 diabetes mellitus without complications; I10 Essential (primary) hypertension; K21.9 Gastro-esophageal reflux disease without esophagitis; E78.5 Hyperlipidemia, unspecified; Z79.82 Long term (current) use of aspirin; Z79.84 Long term (current) use of oral hypoglycemic drugs; Z79.899 Other long term (current) drug therapy; Z88.5 Allergy status to narcotic agent; Z88.8 Allergy status to other drugs, medicaments and biological substances; Z20.822 Contact with and (suspected) exposure to COVID-19
CPT/HCPCS: 0240U; 71045; 71275; 80048; 80053 ×2; 80061; 82043; 82962; 83036; 83880; 84484; 85025 ×2; 93005; 99285; 36415; 36416; 96372; G0378; J1650; Q9967